=== PATIENT | female | born 1960 ===

== ENCOUNTER 2023-01-23 23:22 | Inpatient (IN) ==
[2023-01-23] MEDS ORDERED: IOPAMIDOL 100 ML BOTTLE IV ONE (23:23)
--- NOTE | 2023-01-23 23:32 | Emergency Department Note ---
Back Pain HPI General Chief Complaint: Back Pain/Injury Stated Complaint: back pain Time Seen by Provider: 01/23/23 23:32 Source: patient and EMS Mode of arrival: EMS Limitations: physical limitation History of Present Illness HPI Narrative: Narrative: 62-year-old female presents to the emergency department complaining of back pain. She states that she has had low back pain for many years. states she fell at her brother's house where she presently lives and injured her upper and lower back one week ago. states it has not been x-rayed. She rates it an 10 on a 0-to-10 scale. Constant. Nothing makes it better. Worse with palpation. Does not radiate to her lower extremities. Associated with her chronic back pain. Nurse relayed history that patient had run out of her tramadol for her back and had recently just picked up a prescription for the next 30 days worth of medication. Patient had told the nurse that providers would not renew her medicine early and she had run out. Related Data Home Medications Medication Instructions Recorded Confirmed alprazolam 0.25 mg tablet 0.25 mg PO TID PRN 12/22/22 12/22/22 insulin aspart U-100 100 unit/mL 10 unit subcut TID 12/22/22 (3 mL) subcutaneous pen insulin glargine 100 unit/mL (3 15 unit subcut QDAY 12/22/22 mL) subcutaneous pen lisinopril 40 mg tablet 40 mg PO QDAY 12/22/22 Previous Rx's Medication Instructions Recorded Oxygen 3LPM QHS #1 ea 02/02/22 lancets (OneTouch UltraSoft #100 ea 03/25/22 Lancets) CPAP mask and supplies #1 ea 04/20/22 blood sugar diagnostic (OneTouch #200 ea 05/10/22 Ultra Test strips) incontinence pad, liner, disp #120 ea 05/10/22 compression socks, large #2 ea 05/13/22 sitagliptin phosphate 25 mg tablet 25 mg PO QAM #90 tabs 05/13/22 (Januvia) pen needle, diabetic 31 gauge x #200 ea 05/24/22 3/16" (1st Tier Unifine Pentips) trazodone 50 mg tablet 50 mg PO QHS PRN insomnia #90 tabs 08/16/22 budesonide 3 mg 3 mg PO QDAY 2 weeks #14 ea 08/17/22 capsule,delayed,extended release dicyclomine 20 mg tablet 20 mg PO QID PRN stomach cramping 08/17/22 #120 tabs insulin syringe-needle U-100 1 mL #500 ea 10/12/22 27 gauge x 1/2" (BD Insulin Syringe) spironolactone 25 mg tablet 25 mg PO QDAY #90 tabs 10/12/22 albuterol sulfate 90 mcg/actuation 1 - 2 puff inhalation Q6H PRN 11/01/22 aerosol inhaler (Ventolin HFA) shortness of breath or wheezing #8.5 grams amlodipine 10 mg tablet 10 mg PO QDAY #90 tabs 12/06/22 escitalopram oxalate 10 mg tablet 10 mg PO QDAY #30 tabs 01/02/23 buspirone 5 mg tablet 5 mg PO BID #180 tabs 01/09/23 famotidine 20 mg tablet 20 mg PO BID #180 tabs 01/09/23 prednisone 20 mg tablet 40 mg PO QDAY #180 tabs 01/09/23 tramadol 50 mg tablet 100 mg PO QID PRN pain 30 days 01/20/23 #240 tabs Allergies Allergy/AdvReac Type Severity Reaction Status Date / Time glipizide AdvReac Intermediate Dizziness Verified 12/22/22 11:53 Review of Systems ROS ROS Narrative: Narrative: Constitutional: Denies fever Eyes: Denies eye pain ENT ED: Denies throat pain or rhinorrhea Cardiovascular: Denies chest pain Respiratory: Reports shortness of breath Gastrointestinal: Reports nausea; Denies vomiting Genitourinary: Denies dysuria Musculoskeletal: Reports back pain and other (No neck pain) Integumentary: Denies rash Neurological: Denies headache Psychiatric: Reports depression PFSH Narrative Patient History Narrative: Narrative: Medical/Surgical/Family History All Active Problems (Updated 01/24/23 @ 07:41 by Jason Espinoza MD) Acute low back pain due to trauma (Acute) Acute upper back pain (Acute) Acute alteration in mental status (Acute) Acute dehydration (Acute) Acute hyperkalemia (Acute) Urinary tract infection, acute (Acute) Cellulitis of right middle finger (Acute) Tachycardia (Acute) Hypoxia (Acute) Methamphetamine abuse (Acute) Aspiration pneumonia (Acute) Diabetic ulcer of chew (Acute) Hypoglycemia (Acute) Acute GI bleeding (Acute) Diarrhea (Acute) HSP ([place]) (Chronic) COPD exacerbation (Acute) Elevated blood sugar level (Acute) Depression (Acute) Hernia (Acute) Gout (Acute) Hepatitis C (Acute) Glaucoma (Acute) Arthritis (Acute) Chronic back pain (Acute) Diverticulitis (Acute) Anxiety (Acute) Type 2 diabetes mellitus (Chronic) IBS (irritable bowel syndrome) (Acute) HTN (hypertension) (Acute) COPD (chronic obstructive pulmonary disease) (Acute) Medical History Anxiety Arthritis Chronic back pain COPD (chronic obstructive pulmonary disease) COPD exacerbation Depression recent loss of son Diverticulitis Elevated blood sugar level Glaucoma Gout Hepatitis C Hernia HTN (hypertension) IBS (irritable bowel syndrome) Type 2 diabetes mellitus Surgical History History of colostomy (~2013) History of colostomy reversal (~2015) History of eye surgery (~2015) History of tubal ligation (~1992) Family History Sister Cancer High blood pressure Father Cancer Diabetes High blood pressure Mother Diabetes High blood pressure Grandfather High blood pressure Social History Smoking Status: Current every day smoker Alcohol Intake Frequency: a few times a week Substance Use: does not use Exam Narrative Narrative: Narrative: Vital signs on arrival: Blood pressure 137/91. Respiratory rate of 20. Pulse 139 which is markedly elevated. Temperature 97.4. Pulse ox was 70% on room air which is markedly low. Pulse ox came up to 91% on 3 L. General was a well- developed obese older woman lying in bed breathing through her mouth in moderate acute distress. General Limitations: physical limitation General appearance: Present appears intoxicated (Gives very brief answers which often become unintelligible by the end of the sentence.) and in distress Head Head: Present atraumatic and normocephalic Eye Eye: Present miosis (constriction) ENT ENT: Present mucous membranes dry, TM's normal bilaterally and normal external ear exam Neck Neck: Present normal inspection Respiratory Respiratory: Present normal lung sounds bilaterally; Absent respiratory distress Cardiovascular Cardiovascular: Present normal rhythm and tachycardia Adbominal Abdominal: Present soft, tenderness (Mildly tender. Multiple ventral hernia pre sent.) and hernia (Ventral) Extremities Extremities: Present other (Right long finger is swollen and erythematous. Patient states she had to cut the ring off of it.); Absent pedal edema Back Back: Present tenderness (Back was tender diffusely in the thoracic midline as well as lumbar midline as well as para midline upper back and lower back. 1 bruise was noted in the left side of the thoracolumbar junction area) Neurological Neurological: Present other (Patient is stimulated to answer question but then will start to drift off towards the end of the answer. Appears intoxicated) Psychiatric Psychiatric: Present flat affect Skin Skin: Present warm (WNL) and dry Course Vital Signs Vital signs: Vital Signs Temperature 97.4 F 01/23/23 23:23 Pulse Rate 139 H 01/23/23 23:23 Respiratory Rate 20 01/23/23 23:23 Blood Pressure 137/91 01/23/23 23:23 Pulse Oximetry (%) 70 L 01/23/23 23:23 Oxygen Delivery Method Room Air 01/23/23 23:23 Temperature 97.4 F 01/23/23 23:23 Pulse Rate 118 H 01/24/23 06:52 Respiratory Rate 20 01/23/23 23:23 Blood Pressure 131/84 01/24/23 07:16 Pulse Oximetry (%) 92 01/24/23 06:52 Oxygen Delivery Method Room Air 01/23/23 23:23 [facility] Narrative Medical decision making narrative: Narrative: 62-year-old female presents complaining of back pain with tachycardia. Differential diagnosis includes musculoskeletal pain, pyelonephritis, sepsis, dehydration, other Tachycardia in the 130s may be due to sepsis. Blood cultures were obtained lactic acid was obtained and came back normal at 2.0.Patient did not have a fever nor rapid respiratory rate nor elevated white count so only had 1 SIRS criteria. Patient appeared dehydrated on physical exam with a very dry mouth. She was bolused 1 L of normal saline. BUN came back quite elevated with a normal creatinine consistent with dehydration. Patient tachycardic in the 130s. Obed ngo had no urine output after the first liter. Patient was bolused a second liter of normal saline. Patient's potassium came back high at 5.7 with a normal creatinine.. There was minimal urine output after the second liter and the patient was bolused another liter of normal saline. Urine dip was suspicious for urinary tract infection with foul odor, positive nitrites and positive blood although the leukocytes was negative. Patient will be given ceftriaxone 1 g IV. Urine will be sent for culture. White count was normal at 10.3 with 95 neutrophils and 2 lymphs. Hemoglobin was normal at 14.8. Lactic acid was normal at 2.0. Sodium was normal at 136. Potassium was elevated at 5.7. Chloride was normal at 97. Bicarb was elevated at 33. BUN was elevated at 36 with a normal creatinine of 0.7. Glucose was elevated at 200. LFTs were unremarkable. Hyperkalemia may be secondary to dehydration. We will repeat the Chem-8 before instituting therapy to decrease the potassium. Patient was given Toradol 30 mg IV and acetaminophen 975 mg p.o. for her back pain. She rated her pain as a 9 on a 0-to-10 scale. Right long finger appears to have a cellulitis. Patient given ceftriaxone 1 g IV if for possible urinary tract infection as well as the finger. Repeat potassium after 2 L of normal saline went from 5.7 to 6.8. EKG obtained at that time did not reveal any elevated T waves though the P waves were flattened or inverted. EKG also continue to show tachycardia with a rate of 118. Hyperkalemia will be treated with calcium gluconate 4.65. She will be given 5 units of regular Humulin insulin. Her blood sugar had been 200 but is come down to 150. She is a type II diabetic. She will be given dextrose 25% because of the insulin and her glucose being 150 only. Patient continues to speak as though under the influence. CT scan of the head will evaluate for intracranial pathology. CT of the neck chest abdomen pelvis will evaluate for any spinal injuries as well as causes for abdominal tenderness. Urine tox screen will look for any other explanation for altered me ntal status. Will obtain alcohol level. Alcohol level came back at 0. 0600: Repeat POC Chem-8 showed sodium same at 136 but the potassium went from 5.7 to 6.8. Chloride normal at 101. Bicarb came down slightly from 33-31. BUN went up to 38 in spite of 2 L of normal saline while the creatinine stayed the same at 0.7 and the glucose came down to 158. Because of the unexpected rise in potassium from 5.7-6.8 in spite of 2 L of normal saline I am ordering a serum potassium to look for possible erroneous potassium value. Urine tox screen was positive for methamphetamines and for opiates. Urinalysis showed 36 white cells and 34 red cells nitrites negative. This is as opposed to the dip which was nitrite negative but no white cells. Patient is already been given ceftriaxone 1 g IV after her urine dip. CT of the head impression: Moderately limited study due to streak/motion artifac t, within this limitation, no acute intracranial abnormality is identified. CT cervical spine without contrast impression: No acute fracture or traumatic subluxation of the cervical spine. Chronic appearing compression deformity of T4. Correlation with site of pain suggested. Degenerative changes as above. CT scan of the chest abdomen pelvis: Preliminary report pending but verbal report is that the patient may have a bladder rupture. They do not see a pelvic fracture but requested a repeat of the CT scan of the pelvis to see whether there is been extravasation since she received contrast earlier., And is also made about vertebral fractures at T9, T10, T12, L3, L5, S1 but none of them hess ving retropulsion. This verbal report may vary from the preliminary report. Also comment of several rib fractures but no pneumothorax or hemothorax seen. Direct radiology requested patient have a CT scan of the pelvis without contrast since patient already had contrast to look for extravasation. I have ordered that. At this time , 0745, I have signed the patient out to my colleague Dr. Zhao who will assume care of the patient and determine management and disposition. Sepsis Sepsis Identified: No Lab Data 01/24/23 00:28 Labs: Lab Results 01/24/23 01/24/23 01/24/23 Range/Units 00:22 00:28 00:28 WBC 10.3 (4.5-11.0) K/mcL RBC 5.14 (3.59-5.38) M/mcL Hgb 14.8 (11.2-15.7) g/dL Hct 48.1 H (34.1-44.9) % POC Hct 53.0 H (36-48) MCV 93.6 (80.0-100.0) fL MCH 28.8 (26.0-34.0) pg MCHC 30.8 L (31.0-36.0) g/dL RDW 14.7 H (11.5-14.5) % Plt Count 167 (140-440) K/mcL MPV 11.6 (8.8-12.5) fL Immature Gran % (Auto) 1.1 H (0.0-0.5) % Neut % (Auto) 94.8 H (38.0-78.0) % Lymph % (Auto) 1.6 L (15.5-49.0) % [place] % (Auto) 2.1 (1.0-12.0) % Eos % (Auto) 0 (0.0-7.0) % Baso % (Auto) 0.4 (0.0-2.0) % Lymph # (Auto) 0.17 L (1.50-4.80) K/mcL [place] # (Auto) 0.22 (0.10-0.90) K/mcL Eos # (Auto) 0 (0.00-0.70) K/mcL Baso # (Auto) 0.04 (0.00-0.30) K/mcL Immature Gran # 0.11 H (0.00-0.05) K/mcl Absolute Neutrophils 9.79 H (1.80-8.00) K/mcL Differential Comment POC VBG pH (7.32-7.42) POC VBG pCO2 at Temp (41-51) POC VBG pO2 (25-40) POC VBG HCO3 (24-28) POC VBG Total CO2 (25-29) POC Venous O2 Sat (40-70) POC VBG Base Excess (-2-2) VBG Lactic Acid (0.5-2) POC Sodium 136 (133-145) POC Potassium 5.7 H (3.3-5.1) POC Chloride 97 (96-108) POC Total CO2 33.0 H (22-30) POC BUN 36 H (6-20) POC Creatinine 0.7 (0.6-1.2) POC Glucose 200 H (70-105) POC WB Ioniz Calcium 1.28 (1.16-1.32) Total Bilirubin 0.6 (0.1-1.0) mg/dL Direct Bilirubin 0.3 H (<0.3) mg/dL AST 21 (<32) U/L ALT 23 (<40) U/L Alkaline Phosphatase 148 H (39-117) U/L Total Protein 6.8 (5.9-8.4) gm/dL Albumin 2.6 L (3.2-5.2) gm/dL Globulin 4.2 H (2.2-3.7) gm/dL TSH (0.27-5.01) uIU/mL Urine Color Urine Appearance (Clear) Urine pH (5.0-9.0) Ur Specific [place] (1.000-1.035) Urine Protein (Negative) mg/dL Urine Glucose (UA) (Negative) mg/dL Urine Ketones (Negative) mg/dL Urine Occult Blood (Negative) mg/dL Urine Nitrate (Negative) Urine Bilirubin (Negative) mg/dL Urine Urobilinogen mg/dL Ur Leukocyte Esterase (Negative) /uL Urine RBC (0-3) /hpf Urine WBC (0-4) /hpf Ur Squamous Epith Cells (0-4) /hpf Urine Bacteria (0) /hpf Hyaline Casts (0-2) /lph Urine Mucus (None) /hpf Ur Culture Indicated? Urine Opiates Screen Ur Oxycodone Screen U Oxycod/Oxymor Confirm Urine Methadone Screen Ur Methadone Confirm Ur Barbiturates Screen Ur Barbiturate Confirm Ur Phencyclidine Scrn Urine PCP Confirm Ur Amphetamines Screen U Benzodiazepines Scrn Ur Benzodiazepine, Qnt Urine Cocaine Screen Urine Cocaine Confirm U Cannabinoids Confirm U Marijuana (THC) Screen Ethyl Alcohol mg/dL mg/dL Ethyl Alcohol g/dL (<0.010) gm/dL 01/24/23 01/24/23 01/24/23 Range/Units 00:28 00:39 05:28 WBC (4.5-11.0) K/mcL RBC (3.59-5.38) M/mcL Hgb (11.2-15.7) g/dL Hct (34.1-44.9) % POC Hct (36-48) MCV (80.0-100.0) fL MCH (26.0-34.0) pg MCHC (31.0-36.0) g/dL RDW (11.5-14.5) % Plt Count (140-440) K/mcL MPV (8.8-12.5) fL Immature Gran % (Auto) (0.0-0.5) % Neut % (Auto) (38.0-78.0) % Lymph % (Auto) (15.5-49.0) % [place] % (Auto) (1.0-12.0) % Eos % (Auto) (0.0-7.0) % Baso % (Auto) (0.0-2.0) % Lymph # (Auto) (1.50-4.80) K/mcL [place] # (Auto) (0.10-0.90) K/mcL Eos # (Auto) (0.00-0.70) K/mcL Baso # (Auto) (0.00-0.30) K/mcL Immature Gran # (0.00-0.05) K/mcl Absolute Neutrophils (1.80-8.00) K/mcL Differential Comment POC VBG pH 7.42 (7.32-7.42) POC VBG pCO2 at Temp 46.2 (41-51) POC VBG pO2 56 H (25-40) POC VBG HCO3 29.8 H (24-28) POC VBG Total CO2 31.0 H (25-29) POC Venous O2 Sat 89.0 H (40-70) POC VBG Base Excess 5.0 H* (-2-2) VBG Lactic Acid 2.0 (0.5-2) POC Sodium (133-145) POC Potassium (3.3-5.1) POC Chloride (96-108) POC Total CO2 (22-30) POC BUN (6-20) POC Creatinine (0.6-1.2) POC Glucose (70-105) POC WB Ioniz Calcium (1.16-1.32) Total Bilirubin (0.1-1.0) mg/dL Direct Bilirubin (<0.3) mg/dL AST (<32) U/L ALT (<40) U/L Alkaline Phosphatase (39-117) U/L Total Protein (5.9-8.4) gm/dL Albumin (3.2-5.2) gm/dL Globulin (2.2-3.7) gm/dL TSH (0.27-5.01) uIU/mL Urine Color [place] Urine Appearance Cloudy A (Clear) Urine pH 5.0 (5.0-9.0) Ur Specific [place] 1.028 (1.000-1.035) Urine Protein 100 A (Negative) mg/dL Urine Glucose (UA) 50 A (Negative) mg/dL Urine Ketones 20 A (Negative) mg/dL Urine Occult Blood 0.20 (Negative) mg/dL Urine Nitrate Negative (Negative) Urine Bilirubin Negative (Negative) mg/dL Urine Urobilinogen 2.0 A mg/dL Ur Leukocyte Esterase 25 A (Negative) /uL Urine RBC 34 H (0-3) /hpf Urine WBC 36 H (0-4) /hpf Ur Squamous Epith Cells 5 H (0-4) /hpf Urine Bacteria Many A (0) /hpf Hyaline Casts 57 H (0-2) /lph Urine Mucus Many A (None) /hpf Ur Culture Indicated? No Urine Opiates Screen Ur Oxycodone Screen U Oxycod/Oxymor Confirm Urine Methadone Screen Ur Methadone Confirm Ur Barbiturates Screen Ur Barbiturate Confirm Ur Phencyclidine Scrn Urine PCP Confirm Ur Amphetamines Screen U Benzodiazepines Scrn Ur Benzodiazepine, Qnt Urine Cocaine Screen Urine Cocaine Confirm U Cannabinoids Confirm U Marijuana (THC) Screen Ethyl Alcohol mg/dL < 10.0 mg/dL Ethyl Alcohol g/dL < 0.010 (<0.010) gm/dL 01/24/23 01/24/23 01/24/23 Range/Units 05:45 05:47 06:04 WBC (4.5-11.0) K/mcL RBC (3.59-5.38) M/mcL Hgb (11.2-15.7) g/dL Hct (34.1-44.9) % POC Hct 49.0 H (36-48) MCV (80.0-100.0) fL MCH (26.0-34.0) pg MCHC (31.0-36.0) g/dL RDW (11.5-14.5) % Plt Count (140-440) K/mcL MPV (8.8-12.5) fL Immature Gran % (Auto) (0.0-0.5) % Neut % (Auto) (38.0-78.0) % Lymph % (Auto) (15.5-49.0) % [place] % (Auto) (1.0-12.0) % Eos % (Auto) (0.0-7.0) % Baso % (Auto) (0.0-2.0) % Lymph # (Auto) (1.50-4.80) K/mcL [place] # (Auto) (0.10-0.90) K/mcL Eos # (Auto) (0.00-0.70) K/mcL Baso # (Auto) (0.00-0.30) K/mcL Immature Gran # (0.00-0.05) K/mcl Absolute Neutrophils (1.80-8.00) K/mcL Differential Comment POC VBG pH (7.32-7.42) POC VBG pCO2 at Temp (41-51) POC VBG pO2 (25-40) POC VBG HCO3 (24-28) POC VBG Total CO2 (25-29) POC Venous O2 Sat (40-70) POC VBG Base Excess (-2-2) VBG Lactic Acid (0.5-2) POC Sodium 136 (133-145) POC Potassium 6.8 H* (3.3-5.1) POC Chloride 101 (96-108) POC Total CO2 31.0 H (22-30) POC BUN 38 H (6-20) POC Creatinine 0.7 (0.6-1.2) POC Glucose 158 H (70-105) POC WB Ioniz Calcium 1.17 (1.16-1.32) Total Bilirubin (0.1-1.0) mg/dL Direct Bilirubin (<0.3) mg/dL AST (<32) U/L ALT (<40) U/L Alkaline Phosphatase (39-117) U/L Total Protein (5.9-8.4) gm/dL Albumin (3.2-5.2) gm/dL Globulin (2.2-3.7) gm/dL TSH 0.36 (0.27-5.01) uIU/mL Urine Color Urine Appearance (Clear) Urine pH (5.0-9.0) Ur Specific [place] (1.000-1.035) Urine Protein (Negative) mg/dL Urine Glucose (UA) (Negative) mg/dL Urine Ketones (Negative) mg/dL Urine Occult Blood (Negative) mg/dL Urine Nitrate (Negative) Urine Bilirubin (Negative) mg/dL Urine Urobilinogen mg/dL Ur Leukocyte Esterase (Negative) /uL Urine RBC (0-3) /hpf Urine WBC (0-4) /hpf Ur Squamous Epith Cells (0-4) /hpf Urine Bacteria (0) /hpf Hyaline Casts (0-2) /lph Urine Mucus (None) /hpf Ur Culture Indicated? Urine Opiates Screen Suspect positive A Ur Oxycodone Screen None detected U Oxycod/Oxymor Confirm TNP Urine Methadone Screen None detected Ur Methadone Confirm TNP Ur Barbiturates Screen None detected Ur Barbiturate Confirm TNP Ur Phencyclidine Scrn None detected Urine PCP Confirm TNP Ur Amphetamines Screen Suspect positive A U Benzodiazepines Scrn None detected Ur Benzodiazepine, Qnt TNP Urine Cocaine Screen None detected Urine Cocaine Confirm TNP U Cannabinoids Confirm TNP U Marijuana (THC) Screen None detected Ethyl Alcohol mg/dL mg/dL Ethyl Alcohol g/dL (<0.010) gm/dL EKG Data EKG #1: EKG attestation: Yes I reviewed and interpreted this EKG. Rate: tachycardia Rhythm: NSR Voltage: decreased voltage throughout ST segment elevation in: None ST segment depression in: None Hyperacute T waves: None Interpretation: other (Abnormal EKG. Sinus tachycardia. Low voltage. No hyperacute T waves.) CC TIME Critical Care Time Critical Care Time: Yes Total Critical Care Time: 35 Attestation: Total critical care time exceeded 35 minutes exclusive of all procedures. Patient was critical care in view of her significant tachycardia along with hypoxia of unclear etiology with a chief complaint of back pain. I considered sepsis as well as back injury as well as intra-abdominal injuries. Patient also had altered mental status of unclear etiology. Discharge Plan Patient/Caregiver Discharge Instructions Pt seen by INTERLOCKING AND SIGNAL MECHANIC/PA only: No Clinical Impression: Acute low back pain due to trauma, Acute upper back pain, Acute alteration in mental status, Acute dehydration, Acute hyperkalemia, Urinary tract infection, acute, Cellulitis of right middle finger, Tachycardia, Hypoxia, Methamphetamine abuse Patient Disposition: Still a Patient Condition: Serious Follow up with: Thierno Leonard DO [Primary Care Provider] - Prescriptions: No Action (DME) Oxygen 3LPM QHS See Rx Instructions .Route .MEDSUPPLY Qty: 1 0RF Rx Instructions: As directed (DME) lancets [OneTouch UltraSoft Lancets] Misc See Rx Instructions .Route Qty: 100 3RF Rx Instructions: As directed to test blood sugars three times daily (DME) CPAP mask and supplies See Rx Instructions .Route .MEDSUPPLY Qty: 1 0RF Rx Instructions: As directed (DME) compression socks, large Misc See Rx Instructions .Route Qty: 2 0RF Rx Instructions: As directed daily Januvia 25 mg tablet 25 mg PO QAM Qty: 90 3RF (DME) pen needle, diabetic [1st Tier Unifine Pentips] 31 gauge x 3/16" needle See Rx Instructions .Route Qty: 200 3RF Rx Instructions: Use to administer insulin twice daily trazodone 50 mg tablet 50 mg PO QHS PRN (Reason: insomnia) Qty: 90 1RF spironolactone 25 mg tablet 25 mg PO QDAY Qty: 90 1RF (DME) insulin syringe-needle U-100 [BD Insulin Syringe] 1 mL 27 gauge x 1/2" syringe See Rx Instructions .Route Qty: 500 3RF Rx Instructions: Use to administer insulin twice daily albuterol sulfate [Ventolin HFA] 90 mcg/actuation HFA aerosol inhaler 1 - 2 puff inhalation Q6H PRN (Reason: shortness of breath or wheezing) Qty: 8.5 3RF amlodipine 10 mg tablet 10 mg PO QDAY Qty: 90 0RF escitalopram oxalate 10 mg tablet 10 mg PO QDAY Qty: 30 1RF famotidine 20 mg tablet 20 mg PO BID Qty: 180 0RF buspirone 5 mg tablet 5 mg PO BID Qty: 180 0RF prednisone 20 mg tablet 40 mg PO QDAY Qty: 180 0RF tramadol 50 mg tablet 100 mg PO QID PRN (Reason: pain) 30 Days Qty: 240 0RF Rx Instructions: MAY NOT FILL UNTIL 01/21/23 dicyclomine 20 mg tablet 20 mg PO QID PRN (Reason: stomach cramping) Qty: 120 5RF budesonide 3 mg capsule,delayed,extend.release 3 mg PO QDAY 14 Days Qty: 14 0RF insulin aspart U-100 100 unit/mL (3 mL) insulin pen 10 unit subcut TID Rx Instructions: plus sliding scale adjustment due to steroid use MAXIUMUM DOSE 42U DAILY alprazolam 0.25 mg tablet 0.25 mg PO TID PRN insulin glargine 100 unit/mL (3 mL) insulin pen 15 unit subcut QDAY lisinopril 40 mg tablet 40 mg PO QDAY (DME) OneTouch Ultra Test Strip See Rx Instructions .Route Qty: 200 3RF Rx Instructions: Use to test blood sugar three times daily (DME) incontinence pad, liner, disp Pad See Rx Instructions .Route Qty: 120 0RF Rx Instructions: As directed daily
[2023-01-24 00:27] LABS: POC Calcium, Ionized 1.28 (1.16-1.32); POC Creatinine 0.7 (0.6-1.2); POC Potassium 5.7 (3.3-5.1)
[2023-01-24 01:14] LABS: Basophils # (Auto) 0.04 K/mcL (0.00-0.30); Basophils % (Auto) 0.4 % (0.0-2.0); Eosinophils # (Auto) 0 K/mcL (0.00-0.70); Eosinophils % (Auto) 0 % (0.0-7.0); Hematocrit 48.1 % (34.1-44.9); Hemoglobin 14.8 g/dL (11.2-15.7); Lymphocytes # (Auto) 0.17 K/mcL (1.50-4.80); Lymphocytes % (Auto) 1.6 % (15.5-49.0); Mean Cell Volume 93.6 fL (80.0-100.0); Mean Corpuscular HGB Conc 30.8 g/dL (31.0-36.0); Mean Platelet Volume 11.6 fL (8.8-12.5); Monocytes # (Auto) 0.22 K/mcL (0.10-0.90); Monocytes % (Auto) 2.1 % (1.0-12.0); Neutrophils % (Auto) 94.8 % (38.0-78.0); Platelet Count 167 K/mcL (140-440); RBC 5.14 M/mcL (3.59-5.38); Red Cell Distribution Width 14.7 % (11.5-14.5); WBC 10.3 K/mcL (4.5-11.0)
[2023-01-24] MEDS ORDERED: 0.9 % SODIUM CHLORIDE 1,000 ML IV ONE ×3 (01:21→05:19)
[2023-01-24] MEDS ORDERED: ACETAMINOPHEN 325 MG TABLET PO ONE (01:21)
[2023-01-24] MEDS ORDERED: KETOROLAC 30 MG/ML VIAL IV ONE (01:21)
[2023-01-24 01:29] LABS: ALT/SGPT 23 U/L (<40); AST/SGOT 21 U/L (<32); Albumin 2.6 gm/dL (3.2-5.2); Alkaline Phosphatase 148 U/L (39-117); Bilirubin,Direct 0.3 mg/dL (<0.3); Bilirubin,Total 0.6 mg/dL (0.1-1.0); Globulin 4.2 gm/dL (2.2-3.7)
[2023-01-24] MEDS ORDERED: cefTRIAXone 1 GM VIAL IV ONE ×2 (05:19→22:00)
[2023-01-24 05:56] LABS: POC Calcium, Ionized 1.17 (1.16-1.32); POC Creatinine 0.7 (0.6-1.2); POC Potassium 6.8 (3.3-5.1)
[2023-01-24] MEDS ORDERED: INSULIN REGULAR, HUMAN 1 UNIT/0.01 ML UNIT IV ONE (05:56)
[2023-01-24] MEDS ORDERED: SODIUM POLYSTYRENE SULFONATE 15 GM/60 ML SUSPENSION PO ONE (05:56)
[2023-01-24] MEDS ORDERED: CALCIUM GLUCONATE 4.65 MEQ in DEXTROSE 5% IN WATER 50 ML IV ONE (05:56)
[2023-01-24] MEDS ORDERED: DEXTROSE 25 % 10ML SYRINGE (PEDIATRIC) IV ONE (06:14)
[2023-01-24 06:38] LABS: Alcohol, Blood < 10.0 mg/dL; Alcohol,Blood < 0.010 gm/dL (<0.010)
[2023-01-24] MEDS ORDERED: DEXTROSE 50% 50 ML SYRINGE IV ONE (06:57)
[2023-01-24 07:17] LABS: Appearance,Urine CLOUDY (Clear); Bacteria,Urine MANY /hpf (0); Bilirubin,Urine Negative (Negative); Color,Urine AMBER; Culture Indicated,Urine No; Glucose,Urine (UA) 50 mg/dL (Negative); Ketones,Urine 20 mg/dL (Negative); Leukocyte Esterase,Urine 25 /uL (Negative); Mucus,Urine MANY /hpf; Nitrate,Urine Negative (Negative); Protein,Urine 100 mg/dL (Negative); Specific Gravity,Urine 1.028 (1.000-1.035); Urine Hyaline Cast 57 /lph (0-2); Urine RBC 34 /hpf (0-3); Urine Squamous Epithelial Cell 5 /hpf (0-4); Urine WBC 36 /hpf (0-4)
[2023-01-24 07:22] LABS: Amphetamine Screen,Urine Suspect positive; Barbiturate Screen,Urine None detected; Benzodiazepines Screen,Urine None detected; Cannabinoid Screen,Urine None detected; Cocaine Screen,Urine None detected; Opiate Screen,Urine Suspect Positive; Oxycodone, Urine Screen None detected; Phencyclidine Screen,Urine None detected
[2023-01-24 07:26] LABS: Thyroid Stimulating Hormone 0.36 uIU/mL (0.27-5.01)
[2023-01-24 08:29] LABS: Blood Urea Nitrogen 24 mg/dL (8-23); Calcium 9.3 mg/dL (8.6-10.4); Carbon Dioxide 27 mmol/L (22-30); Chloride 102 mmol/L (96-108); Glomerular Filtration Rate 104; Glucose 121 mg/dL (70-105)
--- NOTE | 2023-01-24 09:35 | Cat Scan Report ---
CLINICAL INFORMATION: Decreased consciousness COMPARISON: 10/15/2022 TECHNIQUE: 2.5 mm helical slices were obtained in the skull base to vertex. Following reconstruction, axial reformatted images were reviewed at bone and parenchymal windows. The exam was performed using radiation dose optimization techniques including, but not limited to, automated exposure control, adjustment of the mA and/or kV according to patient size and use of iterative reconstruction technique. FINDINGS: The ventricles, sulci, fissures, and cisterns are normal in size and configuration for age. No extra-axial fluid collections are identified. The cerebrum, brainstem and cerebellum are unremarkable. There is no evidence of hemorrhage, mass effect, or edema. Bone windows show no osseous abnormality. IMPRESSION: Normal head CT without contrast. Interpreted and Authenticated by: Thierno Herron 01/24/23
--- NOTE | 2023-01-24 09:42 | Cat Scan Report ---
CLINICAL INFORMATION: Trauma COMPARISON: None. TECHNIQUE: 0.625 mm helical slices were obtained from the skull base through the superior T2 end plate. Following reconstruction, 2.5 mm sagittal, coronal and axial reformations , with and without disc space angling, were processed. The exam was reviewed at bone and soft tissue windows. The exam was performed using radiation dose optimization techniques including, but not limited to, automated exposure control, adjustment of the mA and/or kV according to patient size and use of iterative reconstruction technique. FINDINGS: Sagittal and coronal reformatted images show the cervical spine is anatomically aligned. 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 There is no fracture identified. The cervical cord is normal in contour and caliber without focal lesion. The soft tissues are normal. Centrilobular emphysema again noted. The C1-2 and C2-3 levels are normal. At C3-4, mild broad disc protrusion and facet arthropathy result in mild central canal and left IV foraminal narrowing. At C4-5, mild broad disc protrusion and moderate facet arthropathy result in mild right IV foraminal and mild central canal narrowing. At C5-6, moderate broad disc spur complex results in moderate central canal, severe left lateral recess/IV foraminal and moderate right IV foraminal narrowing. There is exiting C6 nerve root impingement. No change At C6-7, large broad disc spur complex results in severe central canal and left IV foraminal narrowing. There is impingement of the exiting left C7 nerve root The C7-T1 disc level is normal. IMPRESSION: 1. No fracture or post traumatic change. 2. Multilevel degeneration. 3. Centrilobular emphysema Interpreted and Authenticated by: Thierno Herron 01/24/23
[2023-01-24] MEDS ORDERED: PIPERACILLIN SODIUM/TAZOBACTAM 3.375 GM in DEXTROSE 5% IN WATER 50 ML IV ONE (10:06)
--- NOTE | 2023-01-24 11:33 | Emergency Department Note ---
Course Course Course Narrative: Assumed care of patient at 0700. Took report evaluated patient checked labs discussed CTs with Dr. Herron. All CTs are negative for acute fxs or intracranial bleed, with the exception of the pelvic CT which showed air both in the bladder wall as well as possibly extravasating. Dr. 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 Her urinalysis is positive for leukocytosis as well as nitrites and many bacteria. Her tox screens positive for amphetamines and opiates. Patient's CT scans showed multiple fractures and tox screens are positive for both opiates and amphetamine. In addition her blood culture showed gram-positive cocci. Patient was treated with ceftriaxone x1 here. 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 Discussed the case with the hospitalist who will see her.. Patient is on chronic opioids and she seems to be on the edge of withdrawal. We will treat her for this with small dose of methadone. Vital Signs Vital signs: Vital Signs Temperature 97.4 F 01/23/23 23:23 Pulse Rate 139 H 01/23/23 23:23 Respiratory Rate 20 01/23/23 23:23 Blood Pressure 137/91 01/23/23 23:23 Pulse Oximetry (%) 70 L 01/23/23 23:23 Oxygen Delivery Method Room Air 01/23/23 23:23 Temperature 97.4 F 01/23/23 23:23 Pulse Rate 122 H 01/24/23 14:46 Respiratory Rate 25 H 01/24/23 16:02 Blood Pressure 131/87 01/24/23 16:02 Pulse Oximetry (%) 95 01/24/23 14:46 Oxygen Delivery Method Nasal Cannula 01/24/23 15:34 Oxygen Flow Rate (L/min) 5 01/24/23 15:34 MDM MDM Narrative Medical decision making narrative: Narrative: Lab Data 01/24/23 00:28 01/24/23 07:36 Labs: Lab Results 01/24/23 01/24/23 01/24/23 Range/Units 00:22 00:28 00:28 WBC 10.3 (4.5-11.0) K/mcL RBC 5.14 (3.59-5.38) M/mcL Hgb 14.8 (11.2-15.7) g/dL Hct 48.1 H (34.1-44.9) % POC Hct 53.0 H (36-48) MCV 93.6 (80.0-100.0) fL MCH 28.8 (26.0-34.0) pg MCHC 30.8 L (31.0-36.0) g/dL RDW 14.7 H (11.5-14.5) % Plt Count 167 (140-440) K/mcL MPV 11.6 (8.8-12.5) fL Immature Gran % (Auto) 1.1 H (0.0-0.5) % Neut % (Auto) 94.8 H (38.0-78.0) % Lymph % (Auto) 1.6 L (15.5-49.0) % Drew % (Auto) 2.1 (1.0-12.0) % Eos % (Auto) 0 (0.0-7.0) % Baso % (Auto) 0.4 (0.0-2.0) % Lymph # (Auto) 0.17 L (1.50-4.80) K/mcL Drew # (Auto) 0.22 (0.10-0.90) K/mcL Eos # (Auto) 0 (0.00-0.70) K/mcL Baso # (Auto) 0.04 (0.00-0.30) K/mcL Seg Neutrophils % (38-78) % Band Neutrophils % (0-10) % Lymphocytes % (15-49) % Monocytes % (Manual) (1-12) % Immature Gran # 0.11 H (0.00-0.05) K/mcl Absolute Neutrophils 9.79 H (1.80-8.00) K/mcL Differential Comment Platelet Estimate (Normal) RBC Morphology (Normal) Hypochromasia (None Seen) POC VBG pH (7.32-7.42) POC VBG pCO2 at Temp (41-51) POC VBG pO2 (25-40) POC VBG HCO3 (24-28) POC VBG Total CO2 (25-29) POC Venous O2 Sat (40-70) POC VBG Base Excess (-2-2) VBG Lactic Acid (0.5-2) POC Sodium 136 (133-145) Sodium (133-145) mmol/L POC Potassium 5.7 H (3.3-5.1) Potassium (3.3-5.1) mmol/L POC Chloride 97 (96-108) Chloride (96-108) mmol/L Carbon Dioxide (22-30) mmol/L POC Total CO2 33.0 H (22-30) Anion Gap (8.0-16.0) POC BUN 36 H (6-20) BUN (8-23) mg/dL Creatinine (0.6-1.1) mg/dL POC Creatinine 0.7 (0.6-1.2) GFR Calculation Glucose (70-105) mg/dL POC Glucose 200 H (70-105) Calcium (8.6-10.4) mg/dL POC WB Ioniz Calcium 1.28 (1.16-1.32) Total Bilirubin 0.6 (0.1-1.0) mg/dL Direct Bilirubin 0.3 H (<0.3) mg/dL AST 21 (<32) U/L ALT 23 (<40) U/L Alkaline Phosphatase 148 H (39-117) U/L Total Protein 6.8 (5.9-8.4) gm/dL Albumin 2.6 L (3.2-5.2) gm/dL Globulin 4.2 H (2.2-3.7) gm/dL Procalcitonin (<0.10) ng/mL TSH (0.27-5.01) uIU/mL Urine Color Urine Appearance (Clear) Urine pH (5.0-9.0) Ur Specific [place] (1.000-1.035) Urine Protein (Negative) mg/dL Urine Glucose (UA) (Negative) mg/dL Urine Ketones (Negative) mg/dL Urine Occult Blood (Negative) mg/dL Urine Nitrate (Negative) Urine Bilirubin (Negative) mg/dL Urine Urobilinogen mg/dL Ur Leukocyte Esterase (Negative) /uL Urine RBC (0-3) /hpf Urine WBC (0-4) /hpf Ur Squamous Epith Cells (0-4) /hpf Urine Bacteria (0) /hpf Hyaline Casts (0-2) /lph Urine Mucus (None) /hpf Ur Culture Indicated? Urine Opiates Screen Ur Oxycodone Screen U Oxycod/Oxymor Confirm Urine Methadone Screen Ur Methadone Confirm Ur Barbiturates Screen Ur Barbiturate Confirm Ur Phencyclidine Scrn Urine PCP Confirm Ur Amphetamines Screen U Benzodiazepines Scrn Ur Benzodiazepine, Qnt Urine Cocaine Screen Urine Cocaine Confirm U Cannabinoids Confirm U Marijuana (THC) Screen Ethyl Alcohol mg/dL mg/dL Ethyl Alcohol g/dL (<0.010) gm/dL 01/24/23 01/24/23 01/24/23 Range/Units 00:28 00:39 05:28 WBC (4.5-11.0) K/mcL RBC (3.59-5.38) M/mcL Hgb (11.2-15.7) g/dL Hct (34.1-44.9) % POC Hct (36-48) MCV (80.0-100.0) fL MCH (26.0-34.0) pg MCHC (31.0-36.0) g/dL RDW (11.5-14.5) % Plt Count (140-440) K/mcL MPV (8.8-12.5) fL Immature Gran % (Auto) (0.0-0.5) % Neut % (Auto) (38.0-78.0) % Lymph % (Auto) (15.5-49.0) % Drew % (Auto) (1.0-12.0) % Eos % (Auto) (0.0-7.0) % Baso % (Auto) (0.0-2.0) % Lymph # (Auto) (1.50-4.80) K/mcL Drew # (Auto) (0.10-0.90) K/mcL Eos # (Auto) (0.00-0.70) K/mcL Baso # (Auto) (0.00-0.30) K/mcL Seg Neutrophils % (38-78) % Band Neutrophils % (0-10) % Lymphocytes % (15-49) % Monocytes % (Manual) (1-12) % Immature Gran # (0.00-0.05) K/mcl Absolute Neutrophils (1.80-8.00) K/mcL Differential Comment Platelet Estimate (Normal) RBC Morphology (Normal) Hypochromasia (None Seen) POC VBG pH 7.42 (7.32-7.42) POC VBG pCO2 at Temp 46.2 (41-51) POC VBG pO2 56 H (25-40) POC VBG HCO3 29.8 H (24-28) POC VBG Total CO2 31.0 H (25-29) POC Venous O2 Sat 89.0 H (40-70) POC VBG Base Excess 5.0 H* (-2-2) VBG Lactic Acid 2.0 (0.5-2) POC Sodium (133-145) Sodium (133-145) mmol/L POC Potassium (3.3-5.1) Potassium (3.3-5.1) mmol/L POC Chloride (96-108) Chloride (96-108) mmol/L Carbon Dioxide (22-30) mmol/L POC Total CO2 (22-30) Anion Gap (8.0-16.0) POC BUN (6-20) BUN (8-23) mg/dL Creatinine (0.6-1.1) mg/dL POC Creatinine (0.6-1.2) GFR Calculation Glucose (70-105) mg/dL POC Glucose (70-105) Calcium (8.6-10.4) mg/dL POC WB Ioniz Calcium (1.16-1.32) Total Bilirubin (0.1-1.0) mg/dL Direct Bilirubin (<0.3) mg/dL AST (<32) U/L ALT (<40) U/L Alkaline Phosphatase (39-117) U/L Total Protein (5.9-8.4) gm/dL Albumin (3.2-5.2) gm/dL Globulin (2.2-3.7) gm/dL Procalcitonin (<0.10) ng/mL TSH (0.27-5.01) uIU/mL Urine Color [place] Urine Appearance Cloudy A (Clear) Urine pH 5.0 (5.0-9.0) Ur Specific [place] 1.028 (1.000-1.035) Urine Protein 100 A (Negative) mg/dL Urine Glucose (UA) 50 A (Negative) mg/dL Urine Ketones 20 A (Negative) mg/dL Urine Occult Blood 0.20 (Negative) mg/dL Urine Nitrate Negative (Negative) Urine Bilirubin Negative (Negative) mg/dL Urine Urobilinogen 2.0 A mg/dL Ur Leukocyte Esterase 25 A (Negative) /uL Urine RBC 34 H (0-3) /hpf Urine WBC 36 H (0-4) /hpf Ur Squamous Epith Cells 5 H (0-4) /hpf Urine Bacteria Many A (0) /hpf Hyaline Casts 57 H (0-2) /lph Urine Mucus Many A (None) /hpf Ur Culture Indicated? No Urine Opiates Screen Ur Oxycodone Screen U Oxycod/Oxymor Confirm Urine Methadone Screen Ur Methadone Confirm Ur Barbiturates Screen Ur Barbiturate Confirm Ur Phencyclidine Scrn Urine PCP Confirm Ur Amphetamines Screen U Benzodiazepines Scrn Ur Benzodiazepine, Qnt Urine Cocaine Screen Urine Cocaine Confirm U Cannabinoids Confirm U Marijuana (THC) Screen Ethyl Alcohol mg/dL < 10.0 mg/dL Ethyl Alcohol g/dL < 0.010 (<0.010) gm/dL 01/24/23 01/24/23 01/24/23 Range/Units 05:45 05:47 06:04 WBC (4.5-11.0) K/mcL RBC (3.59-5.38) M/mcL Hgb (11.2-15.7) g/dL Hct (34.1-44.9) % POC Hct 49.0 H (36-48) MCV (80.0-100.0) fL MCH (26.0-34.0) pg MCHC (31.0-36.0) g/dL RDW (11.5-14.5) % Plt Count (140-440) K/mcL MPV (8.8-12.5) fL Immature Gran % (Auto) (0.0-0.5) % Neut % (Auto) (38.0-78.0) % Lymph % (Auto) (15.5-49.0) % Drew % (Auto) (1.0-12.0) % Eos % (Auto) (0.0-7.0) % Baso % (Auto) (0.0-2.0) % Lymph # (Auto) (1.50-4.80) K/mcL Drew # (Auto) (0.10-0.90) K/mcL Eos # (Auto) (0.00-0.70) K/mcL Baso # (Auto) (0.00-0.30) K/mcL Seg Neutrophils % (38-78) % Band Neutrophils % (0-10) % Lymphocytes % (15-49) % Monocytes % (Manual) (1-12) % Immature Gran # (0.00-0.05) K/mcl Absolute Neutrophils (1.80-8.00) K/mcL Differential Comment Platelet Estimate (Normal) RBC Morphology (Normal) Hypochromasia (None Seen) POC VBG pH (7.32-7.42) POC VBG pCO2 at Temp (41-51) POC VBG pO2 (25-40) POC VBG HCO3 (24-28) POC VBG Total CO2 (25-29) POC Venous O2 Sat (40-70) POC VBG Base Excess (-2-2) VBG Lactic Acid (0.5-2) POC Sodium 136 (133-145) Sodium (133-145) mmol/L POC Potassium 6.8 H* (3.3-5.1) Potassium (3.3-5.1) mmol/L POC Chloride 101 (96-108) Chloride (96-108) mmol/L Carbon Dioxide (22-30) mmol/L POC Total CO2 31.0 H (22-30) Anion Gap (8.0-16.0) POC BUN 38 H (6-20) BUN (8-23) mg/dL Creatinine (0.6-1.1) mg/dL POC Creatinine 0.7 (0.6-1.2) GFR Calculation Glucose (70-105) mg/dL POC Glucose 158 H (70-105) Calcium (8.6-10.4) mg/dL POC WB Ioniz Calcium 1.17 (1.16-1.32) Total Bilirubin (0.1-1.0) mg/dL Direct Bilirubin (<0.3) mg/dL AST (<32) U/L ALT (<40) U/L Alkaline Phosphatase (39-117) U/L Total Protein (5.9-8.4) gm/dL Albumin (3.2-5.2) gm/dL Globulin (2.2-3.7) gm/dL Procalcitonin (<0.10) ng/mL TSH 0.36 (0.27-5.01) uIU/mL Urine Color Urine Appearance (Clear) Urine pH (5.0-9.0) Ur Specific [place] (1.000-1.035) Urine Protein (Negative) mg/dL Urine Glucose (UA) (Negative) mg/dL Urine Ketones (Negative) mg/dL Urine Occult Blood (Negative) mg/dL Urine Nitrate (Negative) Urine Bilirubin (Negative) mg/dL Urine Urobilinogen mg/dL Ur Leukocyte Esterase (Negative) /uL Urine RBC (0-3) /hpf Urine WBC (0-4) /hpf Ur Squamous Epith Cells (0-4) /hpf Urine Bacteria (0) /hpf Hyaline Casts (0-2) /lph Urine Mucus (None) /hpf Ur Culture Indicated? Urine Opiates Screen Suspect positive A Ur Oxycodone Screen None detected U Oxycod/Oxymor Confirm TNP Urine Methadone Screen None detected Ur Methadone Confirm TNP Ur Barbiturates Screen None detected Ur Barbiturate Confirm TNP Ur Phencyclidine Scrn None detected Urine PCP Confirm TNP Ur Amphetamines Screen Suspect positive A U Benzodiazepines Scrn None detected Ur Benzodiazepine, Qnt TNP Urine Cocaine Screen None detected Urine Cocaine Confirm TNP U Cannabinoids Confirm TNP U Marijuana (THC) Screen None detected Ethyl Alcohol mg/dL mg/dL Ethyl Alcohol g/dL (<0.010) gm/dL 01/24/23 01/24/23 01/24/23 Range/Units 07:36 10:00 10:00 WBC (4.5-11.0) K/mcL RBC (3.59-5.38) M/mcL Hgb (11.2-15.7) g/dL Hct (34.1-44.9) % POC Hct (36-48) MCV (80.0-100.0) fL MCH (26.0-34.0) pg MCHC (31.0-36.0) g/dL RDW (11.5-14.5) % Plt Count (140-440) K/mcL MPV (8.8-12.5) fL Immature Gran % (Auto) (0.0-0.5) % Neut % (Auto) (38.0-78.0) % Lymph % (Auto) (15.5-49.0) % Drew % (Auto) (1.0-12.0) % Eos % (Auto) (0.0-7.0) % Baso % (Auto) (0.0-2.0) % Lymph # (Auto) (1.50-4.80) K/mcL Drew # (Auto) (0.10-0.90) K/mcL Eos # (Auto) (0.00-0.70) K/mcL Baso # (Auto) (0.00-0.30) K/mcL Seg Neutrophils % 77 (38-78) % Band Neutrophils % 17 H (0-10) % Lymphocytes % 5 L (15-49) % Monocytes % (Manual) 1 (1-12) % Immature Gran # (0.00-0.05) K/mcl Absolute Neutrophils (1.80-8.00) K/mcL Differential Comment Platelet Estimate Normal (Normal) RBC Morphology Abnormal A (Normal) Hypochromasia 1+ A (None Seen) POC VBG pH (7.32-7.42) POC VBG pCO2 at Temp (41-51) POC VBG pO2 (25-40) POC VBG HCO3 (24-28) POC VBG Total CO2 (25-29) POC Venous O2 Sat (40-70) POC VBG Base Excess (-2-2) VBG Lactic Acid (0.5-2) POC Sodium (133-145) Sodium 139 (133-145) mmol/L POC Potassium (3.3-5.1) Potassium 3.4 (3.3-5.1) mmol/L POC Chloride (96-108) Chloride 102 (96-108) mmol/L Carbon Dioxide 27 (22-30) mmol/L POC Total CO2 (22-30) Anion Gap 10.0 (8.0-16.0) POC BUN (6-20) BUN 24 H (8-23) mg/dL Creatinine 0.5 L (0.6-1.1) mg/dL POC Creatinine (0.6-1.2) GFR Calculation 104 Glucose 121 H (70-105) mg/dL POC Glucose (70-105) Calcium 9.3 (8.6-10.4) mg/dL POC WB Ioniz Calcium (1.16-1.32) Total Bilirubin (0.1-1.0) mg/dL Direct Bilirubin (<0.3) mg/dL AST (<32) U/L ALT (<40) U/L Alkaline Phosphatase (39-117) U/L Total Protein (5.9-8.4) gm/dL Albumin (3.2-5.2) gm/dL Globulin (2.2-3.7) gm/dL Procalcitonin 1.22 H (<0.10) ng/mL TSH (0.27-5.01) uIU/mL Urine Color Urine Appearance (Clear) Urine pH (5.0-9.0) Ur Specific [place] (1.000-1.035) Urine Protein (Negative) mg/dL Urine Glucose (UA) (Negative) mg/dL Urine Ketones (Negative) mg/dL Urine Occult Blood (Negative) mg/dL Urine Nitrate (Negative) Urine Bilirubin (Negative) mg/dL Urine Urobilinogen mg/dL Ur Leukocyte Esterase (Negative) /uL Urine RBC (0-3) /hpf Urine WBC (0-4) /hpf Ur Squamous Epith Cells (0-4) /hpf Urine Bacteria (0) /hpf Hyaline Casts (0-2) /lph Urine Mucus (None) /hpf Ur Culture Indicated? Urine Opiates Screen Ur Oxycodone Screen U Oxycod/Oxymor Confirm Urine Methadone Screen Ur Methadone Confirm Ur Barbiturates Screen Ur Barbiturate Confirm Ur Phencyclidine Scrn Urine PCP Confirm Ur Amphetamines Screen U Benzodiazepines Scrn Ur Benzodiazepine, Qnt Urine Cocaine Screen Urine Cocaine Confirm U Cannabinoids Confirm U Marijuana (THC) Screen Ethyl Alcohol mg/dL mg/dL Ethyl Alcohol g/dL (<0.010) gm/dL 01/24/23 Range/Units 14:01 WBC (4.5-11.0) K/mcL RBC (3.59-5.38) M/mcL Hgb (11.2-15.7) g/dL Hct (34.1-44.9) % POC Hct (36-48) MCV (80.0-100.0) fL MCH (26.0-34.0) pg MCHC (31.0-36.0) g/dL RDW (11.5-14.5) % Plt Count (140-440) K/mcL MPV (8.8-12.5) fL Immature Gran % (Auto) (0.0-0.5) % Neut % (Auto) (38.0-78.0) % Lymph % (Auto) (15.5-49.0) % Drew % (Auto) (1.0-12.0) % Eos % (Auto) (0.0-7.0) % Baso % (Auto) (0.0-2.0) % Lymph # (Auto) (1.50-4.80) K/mcL Drew # (Auto) (0.10-0.90) K/mcL Eos # (Auto) (0.00-0.70) K/mcL Baso # (Auto) (0.00-0.30) K/mcL Seg Neutrophils % (38-78) % Band Neutrophils % (0-10) % Lymphocytes % (15-49) % Monocytes % (Manual) (1-12) % Immature Gran # (0.00-0.05) K/mcl Absolute Neutrophils (1.80-8.00) K/mcL Differential Comment Platelet Estimate (Normal) RBC Morphology (Normal) Hypochromasia (None Seen) POC VBG pH 7.37 (7.32-7.42) POC VBG pCO2 at Temp 49.5 (41-51) POC VBG pO2 49 H (25-40) POC VBG HCO3 28.4 H (24-28) POC VBG Total CO2 30.0 H (25-29) POC Venous O2 Sat 83.0 H (40-70) POC VBG Base Excess 3.0 H (-2-2) VBG Lactic Acid 1.5 (0.5-2) POC Sodium (133-145) Sodium (133-145) mmol/L POC Potassium (3.3-5.1) Potassium (3.3-5.1) mmol/L POC Chloride (96-108) Chloride (96-108) mmol/L Carbon Dioxide (22-30) mmol/L POC Total CO2 (22-30) Anion Gap (8.0-16.0) POC BUN (6-20) BUN (8-23) mg/dL Creatinine (0.6-1.1) mg/dL POC Creatinine (0.6-1.2) GFR Calculation Glucose (70-105) mg/dL POC Glucose (70-105) Calcium (8.6-10.4) mg/dL POC WB Ioniz Calcium (1.16-1.32) Total Bilirubin (0.1-1.0) mg/dL Direct Bilirubin (<0.3) mg/dL AST (<32) U/L ALT (<40) U/L Alkaline Phosphatase (39-117) U/L Total Protein (5.9-8.4) gm/dL Albumin (3.2-5.2) gm/dL Globulin (2.2-3.7) gm/dL Procalcitonin (<0.10) ng/mL TSH (0.27-5.01) uIU/mL Urine Color Urine Appearance (Clear) Urine pH (5.0-9.0) Ur Specific [place] (1.000-1.035) Urine Protein (Negative) mg/dL Urine Glucose (UA) (Negative) mg/dL Urine Ketones (Negative) mg/dL Urine Occult Blood (Negative) mg/dL Urine Nitrate (Negative) Urine Bilirubin (Negative) mg/dL Urine Urobilinogen mg/dL Ur Leukocyte Esterase (Negative) /uL Urine RBC (0-3) /hpf Urine WBC (0-4) /hpf Ur Squamous Epith Cells (0-4) /hpf Urine Bacteria (0) /hpf Hyaline Casts (0-2) /lph Urine Mucus (None) /hpf Ur Culture Indicated? Urine Opiates Screen Ur Oxycodone Screen U Oxycod/Oxymor Confirm Urine Methadone Screen Ur Methadone Confirm Ur Barbiturates Screen Ur Barbiturate Confirm Ur Phencyclidine Scrn Urine PCP Confirm Ur Amphetamines Screen U Benzodiazepines Scrn Ur Benzodiazepine, Qnt Urine Cocaine Screen Urine Cocaine Confirm U Cannabinoids Confirm U Marijuana (THC) Screen Ethyl Alcohol mg/dL mg/dL Ethyl Alcohol g/dL (<0.010) gm/dL Discharge Plan Patient/Caregiver Discharge Instructions Pt seen by [employer] [facility]/PA only: No Clinical Impression: Acute low back pain due to trauma, Acute upper back pain, Acute alteration in mental status, Acute dehydration, Acute hyperkalemia, Urinary tract infection, acute, Cellulitis of right middle finger, Tachycardia, Hypoxia, Methamphetamine abuse, Emphysematous cystitis, Bacteremia Patient Disposition: Xfer As Inpt ([facility]) Condition: Serious Follow up with: Thierno Leonard DO [Primary Care Provider] - Prescriptions: No Action (DME) Oxygen 3LPM QHS See Rx Instructions .Route .MEDSUPPLY Qty: 1 0RF Rx Instructions: As directed (DME) lancets [OneTouch UltraSoft Lancets] Misc See Rx Instructions .Route Qty: 100 3RF Rx Instructions: As directed to test blood sugars three times daily (DME) CPAP mask and supplies See Rx Instructions .Route .MEDSUPPLY Qty: 1 0RF Rx Instructions: As directed (DME) compression socks, large Misc See Rx Instructions .Route Qty: 2 0RF Rx Instructions: As directed daily Januvia 25 mg tablet 25 mg PO QAM Qty: 90 3RF (DME) pen needle, diabetic [1st Tier Unifine Pentips] 31 gauge x 3/16" needle See Rx Instructions .Route Qty: 200 3RF Rx Instructions: Use to administer insulin twice daily trazodone 50 mg tablet 50 mg PO QHS PRN (Reason: insomnia) Qty: 90 1RF spironolactone 25 mg tablet 25 mg PO QDAY Qty: 90 1RF (DME) insulin syringe-needle U-100 [BD Insulin Syringe] 1 mL 27 gauge x 1/2" syringe See Rx Instructions .Route Qty: 500 3RF Rx Instructions: Use to administer insulin twice daily albuterol sulfate [Ventolin HFA] 90 mcg/actuation HFA aerosol inhaler 1 - 2 puff inhalation Q6H PRN (Reason: shortness of breath or wheezing) Qty: 8.5 3RF amlodipine 10 mg tablet 10 mg PO QDAY Qty: 90 0RF escitalopram oxalate 10 mg tablet 10 mg PO QDAY Qty: 30 1RF famotidine 20 mg tablet 20 mg PO BID Qty: 180 0RF buspirone 5 mg tablet 5 mg PO BID Qty: 180 0RF prednisone 20 mg tablet 40 mg PO QDAY Qty: 180 0RF tramadol 50 mg tablet 100 mg PO QID PRN (Reason: pain) 30 Days Qty: 240 0RF Rx Instructions: MAY NOT FILL UNTIL 01/21/23 dicyclomine 20 mg tablet 20 mg PO QID PRN (Reason: stomach cramping) Qty: 120 5RF budesonide 3 mg capsule,delayed,extend.release 3 mg PO QDAY 14 Days Qty: 14 0RF insulin aspart U-100 100 unit/mL (3 mL) insulin pen 10 unit subcut TID Rx Instructions: plus sliding scale adjustment due to steroid use MAXIUMUM DOSE 42U DAILY alprazolam 0.25 mg tablet 0.25 mg PO TID PRN insulin glargine 100 unit/mL (3 mL) insulin pen 15 unit subcut QDAY (DME) OneTouch Ultra Test Strip See Rx Instructions .Route Qty: 200 3RF Rx Instructions: Use to test blood sugar three times daily (DME) incontinence pad, liner, disp Pad See Rx Instructions .Route Qty: 120 0RF Rx Instructions: As directed daily lisinopril 40 mg tablet 40 mg PO BID
--- NOTE | 2023-01-24 11:55 | Cat Scan Report ---
CLINICAL INFORMATION: Decreased level consciousness. Trauma thoracic and lumbar pain abdominal pain. COMPARISON: Chest, abdomen and pelvic CT 02/10/2014 TECHNIQUE: Enteric contrast was utilized. 80 cc of Isovue-370 were injected intravenously, and 50 seconds later, 0.625 mm helical slices were obtained from the lung apices through the subtrochanteric regions of the femurs. Following reconstruction, 2.5 mm sagittal, coronal and axial reformatted images were processed and reviewed at multiple windows and levels. 7 mm MIP reconstructions were obtained through the lungs to optimize nodule detection.The exam was performed using radiation dose optimization techniques including, but not limited to, automated exposure control, adjustment of the mA and/or kV according to patient size and use of iterative reconstruction technique. FINDINGS: Pulmonary parenchymal windows show moderate centrilobular emphysema which show slight progression 2013. There is subsegmental atelectasis in the posterior right lower lobe and scarring or atelectasis in the posterior left lower lobe and lingula. No nodules appreciated.. Pleural spaces are unremarkable-no effusions. Mediastinal windows show the heart is grossly normal in size and configuration. Scattered calcific plaque present in the coronary arteries. The central pulmonary arteries are enlarged compatible with mild pulmonary hypertension related to COPD. the main pulmonary diameter 3.2 cm. No evidence of pulmonary embolus.. Thoracic aorta is normal diameter and well-opacified. There is no adenopathy in the mediastinal, hilar or axillary regions. Esophagus is grossly normal. The thyroid is unremarkable. Abdominal images show the gallbladder and bile ducts, liver, both kidneys, adrenal glands, spleen, pancreas and aorta, including aortic branches, are normal in size, configuration and attenuation without focal lesion. There is no free air, free fluid or adenopathy. Pelvic images show marked emphysema within the urinary bladder wall compatible with severe emphysematous cystitis. Delayed images through the pelvis show the contrast was retained within the urinary bladder-there is no evidence of extravasation to suggest ben urinary bladder rupture. Uterus is anteflexed and normal postmenopausal size 7.3 x 4 cm. IUD is properly positioned endometrial cavity. There is a 3.7 cm simple cyst on the right ovary. Left ovary is normal. Large anterior abdominal wall hernias are new from the 2014 exam: 14 cm left Spigelian hernia which contains mesenteric fat, a few loops of small bowel and sigmoid colon. 17 cm umbilical hernia containing mesenteric fat and a few loops of small bowel and a segment of mid transverse colon. There is an adjacent 10 cm periumbilical hernia which contains a few loops of small bowel and mesentery. The bowel does not appear obstructed or incarcerated in any of the hernias. Bone windows show multiple osteoporotic compression fractures which are new from the remote CT nine years ago: Mild T4-T5, mild T9-T10 mild T12-L1 mild L2 moderate L3. Exact chronicity of these are unknown. There are no definite acute fractures identified throughout the chest abdomen or pelvis. Moderate motion artifact precludes optimal examination for rib fractures IMPRESSION: 1. Severe emphysematous cystitis. 2. Osteoporotic compression fractures mid thoracic and lumbar spine. Although new from a remote study nine years ago, the exact acuity is unknown. They're more likely chronic than acute. No definite acute fracture or other acute posttraumatic change. It should be noted that moderate motion artifact precludes optimal rib fracture assessment. 3. Anterior abdominal wall hernia is new from remote study nine years ago. All hernias containing mesenteric fat and bowel loops which does not appear obstructed or incarcerated: 17 cm umbilical hernia, 10 cm right periumbilical hernia and 14 cm left Spigelian hernia 4. Moderate centrilobular emphysema with atelectasis in the lower lobes. Mild enlargement central pulmonary arteries compatible pulmonary hypertension related to COPD. 5. 3.7 cm simple cyst right ovary. Interpreted and Authenticated by: Thierno Herron 01/24/23
--- NOTE | 2023-01-24 11:56 | XRay Report ---
CLINICAL INFORMATION: Decrease level consciousness COMPARISON: 10/15/2022 TECHNIQUE: Portable FINDINGS: The heart size, mediastinum and pulmonary vessels are unremarkable. COPD changes and minor bibasilar atelectasis noted.. There are no effusions. The bones and soft tissues are within normal limits. IMPRESSION: COPD with minor bibasilar atelectasis Interpreted and Authenticated by: Thierno Herron 01/24/23
[2023-01-24] MEDS: VANCOMYCIN 1,000 MG in 0.9 % SODIUM CHLORIDE 250 ML IV SCH ×2 (12:19→23:22)
--- NOTE | 2023-01-24 13:08 | Internal Med History&Physical ---
HPI History of Present Illness Patient information: Note initiated : 01/24/23 at 1:02 pm Service Date, if different from initiated Date: [] Patient: Elizabeth Verduzco a 62 y/o F admitted on for back pain. Chief Complaint: [] History of present illness: Ms. Verduzco is a 62 year old F Patient presented to the ED last night for back pain and she was nearly obtunded. She says she ran out of her pain medications and that her primary care would not refill it early. She has a meth amphetamine user, states she snorts it but denies IV use. She has had multiple falls resulting in compression fractures of her spine. She fell recently onto family members coffee table and also injured her right finger middle finger. She denies headache fever chills nausea vomiting chest pain stomach pain diarrhea. No chest pain shortness of breath. She also was without her oxygen at 1 point so she was found to have saturation in the 70s initially. She uses 3 L of nasal cannula daily for COPD. She also found to be tachycardic sinus which continued despite 3 L of IV fluids. Urine and imaging of the bladder findings concerning for emphysematous cystitis. She was hyperkalemic at 5.7 which increased to 6.8 and finally dropped to 3.4 this morning. UDS of course was positive for methamphetamine. It also was positive for opioids for she has no prescriptions. Review of Systems: Pertinent positives as above. Denies headache/fever/chills/nausea/vomitin g/chest or abdominal pain/cough/dyspnea/diarrhea. Remaining 10 point review of system reviewed negative PHYSICAL EXAM General: Disheveled and occasional moaning, mild distress Eyes/N/T: EOMI, no scleral icterus, dry MM Head/Neck: neck supple, full ROM, normocephalic atraumatic CV: Tachycardic and regular, No murmurs, normal s1/s2 Pulm: Clear b/l, no wheezing/rhonchi/rales, no respiratory distress Abd: soft, nontender, +BS x4 Ext: no clubbing/cyanosis/edema, nontender, right middle finger swollen mildly erythematous Neuro: Quite lethargic though does arouse to answer questions slowly, moves all extremitiesSpontaneously, CN 2-12 grossly intact, sensations intact b/l upper/lower, follows commands Psychiatric: Skin: warm/dry, Multiple small scabbed wounds PFSH PFSH All Active Problems (Updated 01/24/23 @ 11:36 by Farhat Zhao MD) Acute low back pain due to trauma (Acute) Acute upper back pain (Acute) Acute alteration in mental status (Acute) Acute dehydration (Acute) Acute hyperkalemia (Acute) Urinary tract infection, acute (Acute) Cellulitis of right middle finger (Acute) Tachycardia (Acute) Hypoxia (Acute) Methamphetamine abuse (Acute) Emphysematous cystitis (Acute) Bacteremia (Acute) Aspiration pneumonia (Acute) Diabetic ulcer of chew (Acute) Hypoglycemia (Acute) Acute GI bleeding (Acute) Diarrhea (Acute) HSP (Henoch Schonlein purpura) (Chronic) COPD exacerbation (Acute) Elevated blood sugar level (Acute) Depression (Acute) Hernia (Acute) Gout (Acute) Hepatitis C (Acute) Glaucoma (Acute) Arthritis (Acute) Chronic back pain (Acute) Diverticulitis (Acute) Anxiety (Acute) Type 2 diabetes mellitus (Chronic) IBS (irritable bowel syndrome) (Acute) HTN (hypertension) (Acute) COPD (chronic obstructive pulmonary disease) (Acute) Medical History Anxiety Arthritis Chronic back pain COPD (chronic obstructive pulmonary disease) COPD exacerbation Depression recent loss of son Diverticulitis Elevated blood sugar level Glaucoma Gout Hepatitis C Hernia HTN (hypertension) IBS (irritable bowel syndrome) Type 2 diabetes mellitus Surgical History History of colostomy (~2013) History of colostomy reversal (~2015) History of eye surgery (~2015) History of tubal ligation (~1992) Family History Sister Cancer High blood pressure Father Cancer Diabetes High blood pressure Mother Diabetes High blood pressure Grandfather High blood pressure Social History marital status: occupational status: disabled smoking status: Current every day smoker alcohol intake frequency: a few times a week substance use type: does not use MEDS/ALLERGIES Home Medications and Allergies Home Medications Medication Instructions Recorded Confirmed Type Oxygen 3LPM QHS #1 ea 02/02/22 08/17/22 Rx lancets (OneTouch UltraSoft #100 ea 03/25/22 12/22/22 Rx Lancets) CPAP mask and supplies #1 ea 04/20/22 12/22/22 Rx blood sugar diagnostic (OneTouch #200 ea 05/10/22 08/17/22 Rx Ultra Test strips) incontinence pad, liner, disp #120 ea 05/10/22 12/22/22 Rx compression socks, large #2 ea 05/13/22 12/22/22 Rx sitagliptin phosphate 25 mg tablet 25 mg PO QAM #90 tabs 05/13/22 12/22/22 Rx (Januvia) pen needle, diabetic 31 gauge x #200 ea 05/24/22 08/17/22 Rx 3/16" (1st Tier Unifine Pentips) trazodone 50 mg tablet 50 mg PO QHS PRN insomnia #90 tabs 08/16/22 12/22/22 Rx budesonide 3 mg 3 mg PO QDAY 2 weeks #14 ea 08/17/22 12/22/22 Rx capsule,delayed,extended release dicyclomine 20 mg tablet 20 mg PO QID PRN stomach cramping 08/17/22 12/22/22 Rx #120 tabs insulin syringe-needle U-100 1 mL #500 ea 10/12/22 12/22/22 Rx 27 gauge x 1/2" (BD Insulin Syringe) spironolactone 25 mg tablet 25 mg PO QDAY #90 tabs 10/12/22 12/22/22 Rx albuterol sulfate 90 mcg/actuation 1 - 2 puff inhalation Q6H PRN 11/01/2212/07 Rx aerosol inhaler (Ventolin HFA) shortness of breath or wheezing #8.5 grams amlodipine 10 mg tablet 10 mg PO QDAY #90 tabs 12/06/22 12/22/22 Rx alprazolam 0.25 mg tablet 0.25 mg PO TID PRN 12/22/22 12/22/22 History insulin aspart U-100 100 unit/mL 10 unit subcut TID 12/22/22 History (3 mL) subcutaneous pen insulin glargine 100 unit/mL (3 15 unit subcut QDAY 12/22/22 History mL) subcutaneous pen lisinopril 40 mg tablet 40 mg PO QDAY 12/22/22 History escitalopram oxalate 10 mg tablet 10 mg PO QDAY #30 tabs 01/02/23 Rx buspirone 5 mg tablet 5 mg PO BID #180 tabs 01/09/23 Rx famotidine 20 mg tablet 20 mg PO BID #180 tabs 01/09/23 Rx prednisone 20 mg tablet 40 mg PO QDAY #180 tabs 01/09/23 Rx tramadol 50 mg tablet 100 mg PO QID PRN pain 30 days 01/20/23 Rx #240 tabs Allergies Allergy/AdvReac Type Severity Reaction Status Date / Time glipizide AdvReac Intermediate Dizziness Verified 12/22/22 11:53 EXAM Constitutional Vitals: Temp Pulse Resp BP Pulse Ox O2 Del Method O2 Flow Rate 97.4 F 142 H 26 H 137/82 96 Nasal Cannula 5 01/23/23 23:23 01/24/23 12:31 01/24/23 12:31 01/24/23 12:31 01/24/23 12:31 01/24/23 12:31 01/24/23 12:31 DATA Data Completed and Pending Labs: Labs from last 24 hours 01/24/23 01/24/23 01/24/23 07:36 06:04 05:47 WBC RBC Hgb Hct POC Hct 49.0 H MCV MCH MCHC RDW Plt Count MPV Immature Gran % (Auto) Neut % (Auto) Lymph % (Auto) Sully % (Auto) Eos % (Auto) Baso % (Auto) Lymph # (Auto) Sully # (Auto) Eos # (Auto) Baso # (Auto) Immature Gran # Absolute Neutrophils Differential Comment POC VBG pH POC VBG pCO2 at Temp POC VBG pO2 POC VBG HCO3 POC VBG Total CO2 POC Venous O2 Sat POC VBG Base Excess VBG Lactic Acid POC Sodium 136 Sodium 139 POC Potassium 6.8 H* Potassium 3.4 POC Chloride 101 Chloride 102 Carbon Dioxide 27 POC Total CO2 31.0 H Anion Gap 10.0 POC BUN 38 H BUN 24 H Creatinine 0.5 L POC Creatinine 0.7 GFR Calculation 104 Glucose 121 H POC Glucose 158 H Calcium 9.3 POC WB Ioniz Calcium 1.17 Total Bilirubin Direct Bilirubin AST ALT Alkaline Phosphatase Total Protein Albumin Globulin TSH Urine Color Urine Appearance Urine pH Ur Specific [place] Urine Protein Urine Glucose (UA) Urine Ketones Urine Occult Blood Urine Nitrate Urine Bilirubin Urine Urobilinogen Ur Leukocyte Esterase Urine RBC Urine WBC Ur Squamous Epith Cells Urine Bacteria Hyaline Casts Urine Mucus Ur Culture Indicated? Urine Opiates Screen Suspect positive A Ur Opiates Confirm Pending Ur Oxycodone Screen None detected U Oxycod/Oxymor Confirm TNP Urine Methadone Screen None detected Ur Methadone Confirm TNP Ur Barbiturates Screen None detected Ur Barbiturate Confirm TNP Ur Phencyclidine Scrn None detected Urine PCP Confirm TNP Ur Amphetamines Screen Suspect positive A U Amphetamines Confirm Pending U Benzodiazepines Scrn None detected Ur Benzodiazepine, Qnt TNP Urine Cocaine Screen None detected Urine Cocaine Confirm TNP U Cannabinoids Confirm TNP U Marijuana (THC) Screen None detected Ethyl Alcohol mg/dL Ethyl Alcohol g/dL 01/24/23 01/24/23 01/24/23 05:45 05:28 00:39 WBC RBC Hgb Hct POC Hct MCV MCH MCHC RDW Plt Count MPV Immature Gran % (Auto) Neut % (Auto) Lymph % (Auto) Sully % (Auto) Eos % (Auto) Baso % (Auto) Lymph # (Auto) Sully # (Auto) Eos # (Auto) Baso # (Auto) Immature Gran # Absolute Neutrophils Differential Comment POC VBG pH 7.42 POC VBG pCO2 at Temp 46.2 POC VBG pO2 56 H POC VBG HCO3 29.8 H POC VBG Total CO2 31.0 H POC Venous O2 Sat 89.0 H POC VBG Base Excess 5.0 H* VBG Lactic Acid 2.0 POC Sodium Sodium POC Potassium Potassium POC Chloride Chloride Carbon Dioxide POC Total CO2 Anion Gap POC BUN BUN Creatinine POC Creatinine GFR Calculation Glucose POC Glucose Calcium POC WB Ioniz Calcium Total Bilirubin Direct Bilirubin AST ALT Alkaline Phosphatase Total Protein Albumin Globulin TSH 0.36 Urine Color Aparna Urine Appearance Cloudy A Urine pH 5.0 Ur Specific [place] 1.028 Urine Protein 100 A Urine Glucose (UA) 50 A Urine Ketones 20 A Urine Occult Blood 0.20 Urine Nitrate Negative Urine Bilirubin Negative Urine Urobilinogen 2.0 A Ur Leukocyte Esterase 25 A Urine RBC 34 H Urine WBC 36 H Ur Squamous Epith Cells 5 H Urine Bacteria Many A Hyaline Casts 57 H Urine Mucus Many A Ur Culture Indicated? No Urine Opiates Screen Ur Opiates Confirm Ur Oxycodone Screen U Oxycod/Oxymor Confirm Urine Methadone Screen Ur Methadone Confirm Ur Barbiturates Screen Ur Barbiturate Confirm Ur Phencyclidine Scrn Urine PCP Confirm Ur Amphetamines Screen U Amphetamines Confirm U Benzodiazepines Scrn Ur Benzodiazepine, Qnt Urine Cocaine Screen Urine Cocaine Confirm U Cannabinoids Confirm U Marijuana (THC) Screen Ethyl Alcohol mg/dL Ethyl Alcohol g/dL 01/24/23 01/24/23 01/24/23 00:28 00:28 00:28 WBC 10.3 RBC 5.14 Hgb 14.8 Hct 48.1 H POC Hct MCV 93.6 MCH 28.8 MCHC 30.8 L RDW 14.7 H Plt Count 167 MPV 11.6 Immature Gran % (Auto) 1.1 H Neut % (Auto) 94.8 H Lymph % (Auto) 1.6 L Sully % (Auto) 2.1 Eos % (Auto) 0 Baso % (Auto) 0.4 Lymph # (Auto) 0.17 L Sully # (Auto) 0.22 Eos # (Auto) 0 Baso # (Auto) 0.04 Immature Gran # 0.11 H Absolute Neutrophils 9.79 H Differential Comment POC VBG pH POC VBG pCO2 at Temp POC VBG pO2 POC VBG HCO3 POC VBG Total CO2 POC Venous O2 Sat POC VBG Base Excess VBG Lactic Acid POC Sodium Sodium POC Potassium Potassium POC Chloride Chloride Carbon Dioxide POC Total CO2 Anion Gap POC BUN BUN Creatinine POC Creatinine GFR Calculation Glucose POC Glucose Calcium POC WB Ioniz Calcium Total Bilirubin 0.6 Direct Bilirubin 0.3 H AST 21 ALT 23 Alkaline Phosphatase 148 H Total Protein 6.8 Albumin 2.6 L Globulin 4.2 H TSH Urine Color Urine Appearance Urine pH Ur Specific [place] Urine Protein Urine Glucose (UA) Urine Ketones Urine Occult Blood Urine Nitrate Urine Bilirubin Urine Urobilinogen Ur Leukocyte Esterase Urine RBC Urine WBC Ur Squamous Epith Cells Urine Bacteria Hyaline Casts Urine Mucus Ur Culture Indicated? Urine Opiates Screen Ur Opiates Confirm Ur Oxycodone Screen U Oxycod/Oxymor Confirm Urine Methadone Screen Ur Methadone Confirm Ur Barbiturates Screen Ur Barbiturate Confirm Ur Phencyclidine Scrn Urine PCP Confirm Ur Amphetamines Screen U Amphetamines Confirm U Benzodiazepines Scrn Ur Benzodiazepine, Qnt Urine Cocaine Screen Urine Cocaine Confirm U Cannabinoids Confirm U Marijuana (THC) Screen Ethyl Alcohol mg/dL < 10.0 Ethyl Alcohol g/dL < 0.010 01/24/23 00:22 WBC RBC Hgb Hct POC Hct 53.0 H MCV MCH MCHC RDW Plt Count MPV Immature Gran % (Auto) Neut % (Auto) Lymph % (Auto) S[place] % (Auto) Eos % (Auto) Baso % (Auto) Lymph # (Auto) [place] # (Auto) Eos # (Auto) Baso # (Auto) Immature Gran # Absolute Neutrophils Differential Comment POC VBG pH POC VBG pCO2 at Temp POC VBG pO2 POC VBG HCO3 POC VBG Total CO2 POC Venous O2 Sat POC VBG Base Excess VBG Lactic Acid POC Sodium 136 Sodium POC Potassium 5.7 H Potassium POC Chloride 97 Chloride Carbon Dioxide POC Total CO2 33.0 H Anion Gap POC BUN 36 H BUN Creatinine POC Creatinine 0.7 GFR Calculation Glucose POC Glucose 200 H Calcium POC WB Ioniz Calcium 1.28 Total Bilirubin Direct Bilirubin AST ALT Alkaline Phosphatase Total Protein Albumin Globulin TSH Urine Color Urine Appearance Urine pH Ur Specific [place] Urine Protein Urine Glucose (UA) Urine Ketones Urine Occult Blood Urine Nitrate Urine Bilirubin Urine Urobilinogen Ur Leukocyte Esterase Urine RBC Urine WBC Ur Squamous Epith Cells Urine Bacteria Hyaline Casts Urine Mucus Ur Culture Indicated? Urine Opiates Screen Ur Opiates Confirm Ur Oxycodone Screen U Oxycod/Oxymor Confirm Urine Methadone Screen Ur Methadone Confirm Ur Barbiturates Screen Ur Barbiturate Confirm Ur Phencyclidine Scrn Urine PCP Confirm Ur Amphetamines Screen U Amphetamines Confirm U Benzodiazepines Scrn Ur Benzodiazepine, Qnt Urine Cocaine Screen Urine Cocaine Confirm U Cannabinoids Confirm U Marijuana (THC) Screen Ethyl Alcohol mg/dL Ethyl Alcohol g/dL Preliminary micro results at discharge 01/24/23 00:34 Blood Culture - Preliminary Blood Gram positive cocci 01/24/23 00:28 Blood Culture - Preliminary Blood Gram positive cocci A/P Narrative A/P Narrative: A: *Emphysematous cystitis(): *Bacteremia(GPC in clusters): *Sepsis: -bandemia *Encephalopathy: 2/2 above + meth use *Hyperkalemia: *Volume depletion: *Sinus tachycardia: Patient states she is chronically tachycardic, may need beta-shahnaz *Substance abuse: With methamphetamine and likely opioid abuse * *Acute on chronic back pain: 2/2 recent fall *right middle finger swelling/pain: 2/2 fall *COPD(3L@home): *DM2: *HTN: *GERD: *Anxiety/Depression: prn ativan *Tobacco abuse: P: -IVF -Rocephin/Vanco pedning cx's, pending BC/UC -serial BC's -echo pending -monitor renal fxn/uop/i&o -neurochecks -monitor potassium and other electrolytes and treat accordingly -quality assurance monitor final rhythm -start BB after fluid resuscitation if HR sinus and still tachy -Right hand x-ray eval for finger fracture -lumbar mri, eval for osteo -substance abuse counseling -cont home IH's and home O2, prn nebs -cont norvasc/acei -cont psych meds -Hold aldactone for now -Home medication reconciliation -PT/OT -Smoking cessation counseling >3 mintues -CM for placement -ppx: lovenox / home H2 Time Spent With Patient Time: Total time spent is greater than 50% in coordination of care (as documented) at patient's floor/unit and/or counseling patient: Initial: Total time with patient: 75 - 90 minutes
[2023-01-24] MEDS ORDERED: METOPROLOL TARTRATE 5 MG/5 ML VIAL IV ONE ×2 (13:47→21:36)
[2023-01-24 14:12] LABS: Band Neutrophils % 17 % (0-10); Hypochromasia 1+ (None Seen); Lymphocytes % 5 % (15-49); Monocytes % (Manual) 1 % (1-12); Platelet Estimate NORMAL (Normal); RBC Morphology ABNORMAL (Normal); Segmented Neutrophils % 77 % (38-78)
[2023-01-24] MEDS: 0.9 % SODIUM CHLORIDE 1,000 ML IV SCH (14:20)
[2023-01-24] MEDS ORDERED: METHADONE 5 MG TABLET PO PRN (18:15)
[2023-01-24] MEDS ORDERED: ACETAMINOPHEN 325 MG TABLET PO PRN (21:36)
[2023-01-24] MEDS ORDERED: SENNOSIDES 1 TABLET PO PRN (21:36)
[2023-01-24] MEDS ORDERED: 0.9 % SODIUM CHLORIDE 1,000 ML IV SCH (21:36)
[2023-01-24] MEDS ORDERED: ONDANSETRON 4 MG/2 ML VIAL IV PRN (21:36)
[2023-01-24] MEDS ORDERED: LABETALOL 5 MG/ML ML IV PRN (21:36)
[2023-01-24] MEDS ORDERED: POTASSIUM CHLORIDE 20 MEQ TABLET PO PRN ×2 (21:36)
[2023-01-24] MEDS ORDERED: DEXTROSE 50% 50 ML VIAL IV PRN (21:36)
[2023-01-24] MEDS ORDERED: POTASSIUM CHLORIDE 40 MEQ in DEXTROSE 5% IN WATER 500 ML IV PRN (21:36)
[2023-01-24] MEDS ORDERED: MAGNESIUM SULFATE 2 GM/50 ML BAG IV PRN (21:36)
[2023-01-24] MEDS ORDERED: DEXTROSE 31 GM ORAL.SUSP PO PRN (21:36)
[2023-01-24] MEDS ORDERED: POLYETHYLENE GLYCOL 3350 17 GM PACKET PO PRN (21:36)
[2023-01-24] MEDS: DOCUSATE SODIUM 100 MG CAPSULE PO SCH (21:55)
[2023-01-24] MEDS: morphine 4 MG/ML VIAL IV PRN (21:58)
[2023-01-24] MEDS ORDERED: VANCOMYCIN PER PHARMACY IV SCH (22:00)
[2023-01-24] MEDS: INSULIN LISPRO 1 UNIT/0.01 ML UNIT SQ SCH (22:01)
[2023-01-24] MEDS: 0.9 % SODIUM CHLORIDE 10 ML SYRINGE IV SCH (22:03)
[2023-01-25] MEDS: morphine 4 MG/ML VIAL IV PRN ×3 (00:15→09:34)
[2023-01-25] MEDS: HYDROcodone/APAP 5/325MG TABLET PO PRN ×3 (01:00→23:19)
[2023-01-25] MEDS: METOPROLOL TARTRATE 5 MG/5 ML VIAL IV PRN (01:00)
--- NOTE | 2023-01-25 02:12 | XRay Report ---
CLINICAL INFORMATION: Third digit injury COMPARISON: None FINDINGS: No acute fracture identified. Small remote avulsion fracture of the radial base of the third proximal phalanx appreciated. Severe first CMC and moderate third and fourth DIP degeneration appreciated. There is mild degeneration in the remaining interphalangeal joints. Diffuse soft tissue swelling of the third digit noted.. IMPRESSION: Multilevel degeneration. No acute fracture Interpreted and Authenticated by: Thierno Herron 01/25/23
[2023-01-25] MEDS: 0.9 % SODIUM CHLORIDE 1,000 ML IV SCH (04:37)
[2023-01-25] MEDS: 0.9 % SODIUM CHLORIDE 10 ML SYRINGE IV SCH ×3 (05:19→20:31)
[2023-01-25] MEDS: IPRATROPIUM/ALBUTEROL 3 ML AMPUL.NEB NEB PRN (05:38)
[2023-01-25 07:19] LABS: Basophils # (Auto) 0.06 K/mcL (0.00-0.30); Basophils % (Auto) 0.8 % (0.0-2.0); Eosinophils # (Auto) 0 K/mcL (0.00-0.70); Eosinophils % (Auto) 0 % (0.0-7.0); Hematocrit 41.9 % (34.1-44.9); Hemoglobin 12.4 g/dL (11.2-15.7); Lymphocytes % (Auto) 5.2 % (15.5-49.0); Mean Corpuscular HGB Conc 29.6 g/dL (31.0-36.0); Mean Platelet Volume 11.4 fL (8.8-12.5); Monocytes # (Auto) 0.21 K/mcL (0.10-0.90); Monocytes % (Auto) 2.7 % (1.0-12.0); Neutrophils % (Auto) 89.9 % (38.0-78.0); Platelet Count 157 K/mcL (140-440); RBC 4.32 M/mcL (3.59-5.38); Red Cell Distribution Width 15.1 % (11.5-14.5); WBC 7.7 K/mcL (4.5-11.0)
[2023-01-25] MEDS ORDERED: traZODone HCL 50 MG TABLET PO PRN (07:45)
[2023-01-25] MEDS ORDERED: DICYCLOMINE 20 MG TABLET PO PRN (07:45)
--- NOTE | 2023-01-25 07:46 | Internal Med Progress Note ---
SUBJECTIVE Subjective Patient information: Note initiated : 01/25/23 at 7:39 am Service Date, if different from initiated Date: [] Patient: Elizabeth Verduzco a 62 y/o F admitted on 01/24/23 for back pain. Chief Complaint: [] Interval history: History of present illness: Ms. Verduzco is a 62 year old F Patient presented to the ED last night for back pain and she was nearly obtunded. She says she ran out of her pain medications and that her primary ca re would not refill it early. She has a meth amphetamine user, states she snorts it but denies IV use. She has had multiple falls resulting in compression fractures of her spine. She fell recently onto family members coffee table and also injured her right finger middle finger. She denies headache fever chills nausea vomiting chest pain stomach pain diarrhea. No chest pain shortness of breath. She also was without her oxygen at 1 point so she was found to have saturation in the 70s initially. She uses 3 L of nasal cannula daily for COPD. She also found to be tachycardic sinus which continued despite 3 L of IV fluids. Urine and imaging of the bladder findings concerning for emphysematous cystitis. She was hyperkalemic at 5.7 which increased to 6.8 and finally dropped to 3.4 this morning. UDS of course was positive for methamphetamine. It also was positive for opioids for she has no prescriptions. 01/25 Patient seems to feel a little better today. Occasional nausea. Tachycardic. On home oxygen regimen. potassium actually a little low this morning.Pending repeat blood cultures Review of Systems: Pertinent positives as above. Denies headache/fever/chills//vomiting/chest or abdominal pain/cough/dyspnea/diarrhea. PHYSICAL EXAM General: Awake, no acute Eyes/N/T: EOMI, no scleral icterus, Head/Neck: neck supple, full ROM, CV: Tachycardic and regular, No murmurs, Pulm: fine rales b/l, no wheezing, no respiratory distress Abd: soft, nontender, +BS x4 Ext: no clubbing/cyanosis, mild b/l LE edema Neuro: Somewhat drowsy But improved, moves all extremities Spontaneously, sensations intact b/l upper/lower, follows commands Psychiatric: Skin: warm/dry, Multiple small scabbed wounds Constitutional Vitals: Vital Signs Temp Pulse Resp BP Pulse Ox O2 Del Method O2 Flow Rate 96.8 F L 121 H 23 H 119/81 92 Nasal Cannula 3 01/25/23 04:00 01/25/23 06:01 01/25/23 06:01 01/25/23 06:01 01/25/23 06:01 01/25/23 06:01 01/25/23 06:01 Period Temp Pulse Resp BP Sys/Moffett Pulse Ox O2 Del Method O2 Flow Rate Last 24 Hr 96.8 F-99.7 F 115-144 15-28 113-155/62-113 91-97 Nasal Cannula-Nasal Cannula 3-5 Intake and Output 01/24/23 01/25/23 01/25/23 19:59 03:59 11:59 Intake Total 250 578 250 Output Total 2 1 Balance 250 576 249 Weight 82.508 kg Intake & Output: Intake & Output 01/24/23 01/25/23 01/25/23 19:59 03:59 11:59 Intake Total 250 578 250 Output Total 2 1 Balance 250 576 249 Weight 82.508 kg Intake: IV 250 578 250 Sodium Chloride 0.9% 1,000 ml @ 578 75 mls/hr IV .[id number] KAREN Rx#: [id number] Vancomycin 1,000 mg In Sodium 250 250 Chloride 0.9% 250 ml @ 250 mls/ hr IV Q12H KAREN Rx#:[id number] Oral 0 Output: # of times incontinent of urine 2 1 OBJ DATA Labs 01/25/23 06:15 01/24/23 07:36 Labs: Abnormal Lab Results 01/25/23 01/24/23 01/24/23 06:15 14:01 10:00 Hct POC Hct MCHC 29.6 L RDW 15.1 H Immature Gran % (Auto) 1.4 H Neut % (Auto) 89.9 H Lymph % (Auto) 5.2 L Lymph # (Auto) 0.40 L Band Neutrophils % Lymphocytes % Immature Gran # 0.11 H Absolute Neutrophils RBC Morphology Hypochromasia POC VBG pO2 49 H POC VBG HCO3 28.4 H POC VBG Total CO2 30.0 H POC Venous O2 Sat 83.0 H POC VBG Base Excess 3.0 H POC Potassium POC Total CO2 POC BUN BUN Creatinine Glucose POC Glucose Direct Bilirubin Alkaline Phosphatase Albumin Globulin Procalcitonin 1.22 H Urine Appearance Urine Protein Urine Glucose (UA) Urine Ketones Urine Urobilinogen Ur Leukocyte Esterase Urine RBC Urine WBC Ur Squamous Epith Cells Urine Bacteria Hyaline Casts Urine Mucus Urine Opiates Screen Ur Amphetamines Screen 01/24/23 01/24/23 01/24/23 10:00 07:36 06:04 Hct POC Hct MCHC RDW Immature Gran % (Auto) Neut % (Auto) Lymph % (Auto) Lymph # (Auto) Band Neutrophils % 17 H Lymphocytes % 5 L Immature Gran # Absolute Neutrophils RBC Morphology Abnormal A Hypochromasia 1+ A POC VBG pO2 POC VBG HCO3 POC VBG Total CO2 POC Venous O2 Sat POC VBG Base Excess POC Potassium POC Total CO2 POC BUN BUN 24 H Creatinine 0.5 L Glucose 121 H POC Glucose Direct Bilirubin Alkaline Phosphatase Albumin Globulin Procalcitonin Urine Appearance Urine Protein Urine Glucose (UA) Urine Ketones Urine Urobilinogen Ur Leukocyte Esterase Urine RBC Urine WBC Ur Squamous Epith Cells Urine Bacteria Hyaline Casts Urine Mucus Urine Opiates Screen Suspect positive A Ur Amphetamines Screen Suspect positive A 01/24/23 01/24/23 01/24/23 05:47 05:28 00:39 Hct POC Hct 49.0 H MCHC RDW Immature Gran % (Auto) Neut % (Auto) Lymph % (Auto) Lymph # (Auto) Band Neutrophils % Lymphocytes % Immature Gran # Absolute Neutrophils RBC Morphology Hypochromasia POC VBG pO2 56 H POC VBG HCO3 29.8 H POC VBG Total CO2 31.0 H POC Venous O2 Sat 89.0 H POC VBG Base Excess 5.0 H* POC Potassium 6.8 H* POC Total CO2 31.0 H POC BUN 38 H BUN Creatinine Glucose POC Glucose 158 H Direct Bilirubin Alkaline Phosphatase Albumin Globulin Procalcitonin Urine Appearance Cloudy A Urine Protein 100 A Urine Glucose (UA) 50 A Urine Ketones 20 A Urine Urobilinogen 2.0 A Ur Leukocyte Esterase 25 A Urine RBC 34 H Urine WBC 36 H Ur Squamous Epith Cells 5 H Urine Bacteria Many A Hyaline Casts 57 H Urine Mucus Many A Urine Opiates Screen Ur Amphetamines Screen 01/24/23 01/24/23 01/24/23 00:28 00:28 00:22 Hct 48.1 H POC Hct 53.0 H MCHC 30.8 L RDW 14.7 H Immature Gran % (Auto) 1.1 H Neut % (Auto) 94.8 H Lymph % (Auto) 1.6 L Lymph # (Auto) 0.17 L Band Neutrophils % Lymphocytes % Immature Gran # 0.11 H Absolute Neutrophils 9.79 H RBC Morphology Hypochromasia POC VBG pO2 POC VBG HCO3 POC VBG Total CO2 POC Venous O2 Sat POC VBG Base Excess POC Potassium 5.7 H POC Total CO2 33.0 H POC BUN 36 H BUN Creatinine Glucose POC Glucose 200 H Direct Bilirubin 0.3 H Alkaline Phosphatase 148 H Albumin 2.6 L Globulin 4.2 H Procalcitonin Urine Appearance Urine Protein Urine Glucose (UA) Urine Ketones Urine Urobilinogen Ur Leukocyte Esterase Urine RBC Urine WBC Ur Squamous Epith Cells Urine Bacteria Hyaline Casts Urine Mucus Urine Opiates Screen Ur Amphetamines Screen Meds: Medications Acetaminophen (Acetaminophen 325 Mg Tablet) 650 mg PO Q6HP PRN; Protocol PRN Reason: Per Pain Protocol/Fever > 101 Hydrocodone Bitart/Acetaminophen (Hydrocodone/Apap 5/325mg Tablet) 1 tab PO Q4HP PRN PRN Reason: PAIN LEVEL 3-6 Last Admin: 01/25/23 01:00 Dose: 1 tab Albuterol/Ipratropium (Ipratropium/Albuterol 3 Ml Ampul.Neb) 3 ml NEB Q4HP PRN PRN Reason: Shortness Of Breath Last Admin: 01/25/23 05:38 Dose: 3 ml Dextrose (Dextrose 50% 50 Ml Vial) 0 ml IV UD PRN PRN Reason: Per Sliding Scale Diagnostic Test (Pha) (Accu-Chek 1 Each Strip) 1 each FS ACHS [facility] Last Admin: 01/24/23 21:56 Dose: 1 each Docusate Sodium (Docusate Sodium 100 Mg Capsule) 100 mg PO BID KAREN Last Admin: 01/24/23 21:55 Dose: Not Given Enoxaparin Sodium (Enoxaparin 40 Mg/0.4 Ml Syringe) 40 mg SQ DAILY [facility] Glucose (Dextrose 31 Gm Oral.Susp) 15 gm PO PRN PRN PRN Reason: Hypoglycemia Vancomycin HCl 1,000 mg/ (Sodium Chloride) 250 mls @ 250 mls/hr IV Q12H KAREN; Protocol Last Infusion: 01/25/23 04:36 Dose: Infused Ceftriaxone Sodium 2 gm/ (Dextrose) 50 mls @ 100 mls/hr IV Q24H [facility]; Protocol Potassium Chloride 40 meq/ (Dextrose) 520 mls @ 130 mls/hr IV UD PRN PRN Reason: Potassium < 3 Magnesium Sulfate (Magnesium Sulfate) 2 gm in 50 mls @ 50 mls/hr IV UD PRN PRN Reason: Magnesium </= 1.6 Sodium Chloride (Sodium Chloride 0.9%) 1,000 mls @ 75 mls/hr IV .[id number] [facility] Stop: 01/25/23 10:55 Last Admin: 01/24/23 22:03 Dose: 75 mls/hr Insulin Human Lispro (Insulin Lispro 1 Unit/0.01 Ml Unit) 0 unit SQ ACHS [facility]; Protocol Last Admin: 01/24/23 22:01 Dose: 2 unit Labetalol HCl (Labetalol 5 Mg/Ml Ml) 0 mg IV Q2HP PRN PRN Reason: Hypertension Metoprolol Tartrate (Metoprolol Tartrate 5 Mg/5 Ml Vial) 5 mg IV Q2HP PRN PRN Reason: Tachyarrhythmias HR>110 Last Admin: 01/25/23 01:00 Dose: 5 mg Morphine Sulfate (Morphine 4 Mg/Ml Vial) 0 mg IV Q3HP PRN PRN Reason: Pain Last Admin: 01/25/23 05:19 Dose: 3 mg Ondansetron HCl (Ondansetron 4 Mg/2 Ml Vial) 4 mg IV Q4HP PRN PRN Reason: Nausea And Vomiting Polyethylene Glycol (Polyethylene Glycol 3350 17 Gm Packet) 17 gm PO DAILYP PRN PRN Reason: Constipation Potassium Chloride (Potassium Chloride 20 Meq Tablet) 40 meq PO UD PRN PRN Reason: Potssium is 3-3.5 Potassium Chloride (Potassium Chloride 20 Meq Tablet) 40 meq PO UD PRN PRN Reason: Potassium < 3 Senna (Sennosides 1 Tablet) 2 tab PO DAILYP PRN PRN Reason: Constipation Sodium Chloride (0.9 % Sodium Chloride 10 Ml Syringe) 10 ml IV Q8 [facility] Last Admin: 01/25/23 05:19 Dose: 10 ml Vancomycin HCl (Vancomycin Per Pharmacy) 1 order IV UD KAREN A/P Narrative A/P Narrative: A: *Emphysematous cystitis(GNB): *Bacteremia(Staph Aureus): likely entry via skin with multiple scab wounds *Sepsis: -tachycardia/tachypnea/bandemia *Encephalopathy: 2/2 above + meth use -improving *Hyperkalemia: now hypo this am *Volume depletion: *Sinus tachycardia: Patient states she is chronically tachycardic, *Substance abuse: With methamphetamine and likely opioid abuse *Acute on chronic back pain: 2/2 recent fall and compression fx's *Compression Fx's of thoracic/lumbar spine *Generalized weakness/deconditioning/falling: *right middle finger swelling/pain: 2/2 fall, xray with avulsion fracture of third digit *h/o DVT's: on eliquis *COPD(3L@home): *RIKY on cpap: *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, currently on 40mg daily, continue *DM2: *HTN: *GERD: *Anxiety/Depression: prn ativan,ssri *Tobacco abuse: P: -IVF -Rocephin/Vanco pending cx's, pending BC/UC -serial BC's -echo pending -monitor renal fxn/uop/i&o -monitor potassium and other electrolytes and treat accordingly -cont acei, start BB for chronic sinus tach -cont home IH's and home O2, prn nebs -cont psych meds -Hold aldactone for now -basal and ssi -home qhs cpap -PT/OT, ST eval -Smoking & substance use cessation counseling -CM for placement -ppx: apixiban / home H2 Time Spent With Patient Time: Total time spent is greater than 50% in coordination of care (as documented) at patient's floor/unit and/or counseling patient: Subsequent: Total time with patient: 50 - 65 Minutes QUALITY VTE Deep Vein Thrombosis/Pulmonary Embolism Present on Admission: No
[2023-01-25] MEDS ORDERED: traMADol 50 MG TABLET PO PRN (08:03)
[2023-01-25 08:11] LABS: ALT/SGPT 29 U/L (<40); AST/SGOT 26 U/L (<32); Albumin 1.9 gm/dL (3.2-5.2); Albumin/Globulin Ratio 0.5 (1.0-2.3); Alkaline Phosphatase 264 U/L (39-117); Bilirubin,Direct 0.2 mg/dL (<0.3); Bilirubin,Total 0.4 mg/dL (0.1-1.0); Blood Urea Nitrogen 15 mg/dL (8-23); Calcium 9.5 mg/dL (8.6-10.4); Carbon Dioxide 27 mmol/L (22-30); Chloride 103 mmol/L (96-108); Globulin 4.1 gm/dL (2.2-3.7); Glomerular Filtration Rate 123; Glucose 126 mg/dL (70-105); Lactate Dehydrogenase 405 U/L (135-225); Phosphorous 2.5 mg/dL (2.5-4.5); Triglycerides 126 mg/dL (<150); Uric Acid 3.4 mg/dL (2.5-8.0)
[2023-01-25] MEDS: INSULIN LISPRO 1 UNIT/0.01 ML UNIT SQ SCH ×4 (08:24→20:29)
[2023-01-25] MEDS ORDERED: METOPROLOL SUCCINATE 50 MG TAB.XL.24H PO SCH (09:00)
[2023-01-25] MEDS ORDERED: ENOXAPARIN 40 MG/0.4 ML SYRINGE SQ SCH (09:00)
[2023-01-25] MEDS: cefTRIAXone 2 GM in DEXTROSE 5% IN WATER 50 ML IV SCH (09:19)
[2023-01-25] MEDS: DOCUSATE SODIUM 100 MG CAPSULE PO SCH ×2 (09:31→20:30)
[2023-01-25] MEDS: INSULIN GLARGINE, HUMAN 1 UNIT/0.01 ML SQ SCH (09:31)
[2023-01-25] MEDS: APIXABAN 5 MG TABLET PO SCH ×2 (09:31→20:30)
[2023-01-25] MEDS: LISINOPRIL 20 MG TABLET PO SCH ×2 (09:32→20:30)
[2023-01-25] MEDS: ESCITALOPRAM 10 MG TABLET PO SCH (09:32)
[2023-01-25] MEDS: predniSONE 20 MG TABLET PO SCH (09:32)
[2023-01-25] MEDS: FAMOTIDINE 20 MG TABLET PO SCH ×2 (09:32→20:30)
[2023-01-25 09:35] LABS: Anisocytosis 1+ (None Seen); Band Neutrophils % 10 % (0-10); Lymphocytes % 10 % (15-49); Monocytes % (Manual) 1 % (1-12); Myelocytes % 1 %; Platelet Estimate NORMAL (Normal); RBC Morphology ABNORMAL (Normal); Segmented Neutrophils % 78 % (38-78)
[2023-01-25] MEDS: VANCOMYCIN 1,000 MG in 0.9 % SODIUM CHLORIDE 250 ML IV SCH ×2 (10:19→20:30)
[2023-01-25] MEDS: Dorzolamide-Timolol 22.3-6.8 mg/mL drops OU SCH ×2 (11:08→20:30)
[2023-01-25] MEDS ORDERED: POTASSIUM CHLORIDE 20 MEQ TABLET PO ONE (11:08)
[2023-01-26] MEDS: IPRATROPIUM/ALBUTEROL 3 ML AMPUL.NEB NEB PRN (02:34)
[2023-01-26] MEDS: morphine 4 MG/ML VIAL IV PRN ×3 (02:37→21:32)
[2023-01-26] MEDS: 0.9 % SODIUM CHLORIDE 10 ML SYRINGE IV SCH ×4 (04:40→21:19)
[2023-01-26 07:03] LABS: ALT/SGPT 31 U/L (<40); AST/SGOT 36 U/L (<32); Albumin 1.8 gm/dL (3.2-5.2); Albumin/Globulin Ratio 0.5 (1.0-2.3); Alkaline Phosphatase 258 U/L (39-117); Bilirubin,Direct < 0.2 mg/dL (0-0.3); Bilirubin,Total 0.2 mg/dL (0.1-1.0); Blood Urea Nitrogen 16 mg/dL (8-23); Calcium 9.9 mg/dL (8.6-10.4); Carbon Dioxide 30 mmol/L (22-30); Chloride 104 mmol/L (96-108); Globulin 3.9 gm/dL (2.2-3.7); Glomerular Filtration Rate 111; Glucose 126 mg/dL (70-105); Lactate Dehydrogenase 311 U/L (135-225); Triglycerides 118 mg/dL (<150); Uric Acid 3.4 mg/dL (2.5-8.0)
[2023-01-26] MEDS ORDERED: POTASSIUM PHOSPHATE 40 MEQ in DEXTROSE 5% IN WATER 500 ML IV ONE (07:37)
[2023-01-26] MEDS ORDERED: DEXTROSE 5% IN WATER 500 ML IV ONE (07:38)
--- NOTE | 2023-01-26 07:40 | Internal Med Progress Note ---
SUBJECTIVE Subjective Patient information: Note initiated : 01/26/23 at 7:34 am Service Date, if different from initiated Date: [] Patient: Elizabeth Verduzco a 62 y/o F admitted on 01/24/23 for back pain. Chief Complaint: [] Interval history: History of present illness: Ms. Verduzco is a 62 year old F Patient presented to the ED last night for back pain and she was nearly obtunded. She says she ran out of her pain medications and that her primary ca re would not refill it early. She has a meth amphetamine user, states she snorts it but denies IV use. She has had multiple falls resulting in compression fractures of her spine. She fell recently onto family members coffee table and also injured her right finger middle finger. She denies headache fever chills nausea vomiting chest pain stomach pain diarrhea. No chest pain shortness of breath. She also was without her oxygen at 1 point so she was found to have saturation in the 70s initially. She uses 3 L of nasal cannula daily for COPD. She also found to be tachycardic sinus which continued despite 3 L of IV fluids. Urine and imaging of the bladder findings concerning for emphysematous cystitis. She was hyperkalemic at 5.7 which increased to 6.8 and finally dropped to 3.4 this morning. UDS of course was positive for methamphetamine. It also was positive for opioids for she has no prescriptions. 01/25 Patient seems to feel a little better today. Occasional nausea. Tachycardic. On home oxygen regimen. potassium actually a little low this morning.Pending repeat blood cultures 01/26 Patient says she she is feeling okay. Tachycardia improving And will increase beta-shahnaz. Repeat blood cultures from yesterday positive. Surveillance blood cultures for the morning. Mild hypokalemia and hypophosphatemia. Replete. ID consult. Review of Systems: Pertinent positives as above. Denies headache/fever/chills//vomiting/chest or abdominal pain/cough/dyspnea/diarrhea. PHYSICAL EXAM General: Awake, no acute Eyes/N/T: EOMI, no scleral icterus, Head/Neck: neck supple, full ROM, CV: Tachycardic and regular and rate improving, No murmurs, Pulm: fine rales b/l, no wheezing, no respiratory distress Abd: soft, nontender, +BS x4 Ext: no clubbing/cyanosis, mild b/l LE edema Neuro: Somewhat drowsy But improved overall, moves all extremities Spontaneously, sensations intact b/l upper/lower, follows commands, answers questions appropriately Psychiatric: Skin: warm/dry, Multiple small scabbed wounds Constitutional Vitals: Vital Signs Temp Pulse Resp BP Pulse Ox O2 Del Method O2 Flow Rate 98.1 F 108 H 14 142/81 93 Nasal Cannula 3 01/26/23 04:00 01/26/23 04:05 01/26/23 04:05 01/26/23 04:00 01/26/23 04:05 01/26/23 04:05 01/26/23 04:05 Period Temp Pulse Resp BP Sys/Moffett Pulse Ox O2 Del Method O2 Flow Rate Last 24 Hr 97.0 F-98.2 F 106-135 14-26 127-142/79-99 91-96 Nasal Cannula- Oxymask 3-3 Intake and Output 01/25/23 01/26/23 01/26/23 19:59 03:59 11:59 Intake Total 1000 250 Output Total 2 3 1 Balance 998 247 -1 Weight 82.508 kg 81.692 kg Intake & Output: Intake & Output 01/25/23 01/26/23 01/26/23 19:59 03:59 11:59 Intake Total 1000 250 Output Total 2 3 1 Balance 998 247 -1 Weight 82.508 kg 81.692 kg Intake: IV 1000 250 Sodium Chloride 0.9% 1,000 ml @ 1000 75 mls/hr IV .[id number] KAREN Rx#: [id number] Vancomycin 1,000 mg In Sodium 250 Chloride 0.9% 250 ml @ 250 mls/ hr IV Q12H KAREN Rx#:[id number] Output: # of times incontinent of urine 2 3 1 Other: Meal Dinner Percent of Meal Consumed 25% Feeding Ability Total Assistance OBJ DATA Labs 01/25/23 06:15 01/26/23 05:36 Labs: Abnormal Lab Results 01/26/23 01/26/23 01/25/23 05:37 05:36 06:15 Hct POC Hct MCHC RDW Immature Gran % (Auto) Neut % (Auto) Lymph % (Auto) Lymph # (Auto) Band Neutrophils % Lymphocytes % 10 L Immature Gran # Absolute Neutrophils RBC Morphology Abnormal A Hypochromasia Anisocytosis 1+ A POC VBG pO2 POC VBG HCO3 POC VBG Total CO2 POC Venous O2 Sat POC VBG Base Excess Sodium 146 H POC Potassium Potassium 3.1 L POC Total CO2 POC BUN BUN Creatinine 0.4 L Glucose 126 H POC Glucose Phosphorus 2.0 L Direct Bilirubin GGT 256 H AST 36 H Alkaline Phosphatase 258 H Lactate Dehydrogenase 311 H Total Protein 5.7 L Albumin 1.8 L Globulin 3.9 H Albumin/Globulin Ratio 0.5 L Procalcitonin 0.52 H Urine Appearance Urine Protein Urine Glucose (UA) Urine Ketones Urine Urobilinogen Ur Leukocyte Esterase Urine RBC Urine WBC Ur Squamous Epith Cells Urine Bacteria Hyaline Casts Urine Mucus Urine Opiates Screen Ur Amphetamines Screen 01/25/23 01/25/23 01/24/23 06:15 06:15 14:01 Hct POC Hct MCHC 29.6 L RDW 15.1 H Immature Gran % (Auto) 1.4 H Neut % (Auto) 89.9 H Lymph % (Auto) 5.2 L Lymph # (Auto) 0.40 L Band Neutrophils % Lymphocytes % Immature Gran # 0.11 H Absolute Neutrophils RBC Morphology Hypochromasia Anisocytosis POC VBG pO2 49 H POC VBG HCO3 28.4 H POC VBG Total CO2 30.0 H POC Venous O2 Sat 83.0 H POC VBG Base Excess 3.0 H Sodium POC Potassium Potassium 3.0 L POC Total CO2 POC BUN BUN Creatinine 0.3 L Glucose 126 H POC Glucose Phosphorus Direct Bilirubin GGT 295 H AST Alkaline Phosphatase 264 H Lactate Dehydrogenase 405 H Total Protein Albumin 1.9 L Globulin 4.1 H Albumin/Globulin Ratio 0.5 L Procalcitonin Urine Appearance Urine Protein Urine Glucose (UA) Urine Ketones Urine Urobilinogen Ur Leukocyte Esterase Urine RBC Urine WBC Ur Squamous Epith Cells Urine Bacteria Hyaline Casts Urine Mucus Urine Opiates Screen Ur Amphetamines Screen 01/24/23 01/24/23 01/24/23 10:00 10:00 07:36 Hct POC Hct MCHC RDW Immature Gran % (Auto) Neut % (Auto) Lymph % (Auto) Lymph # (Auto) Band Neutrophils % 17 H Lymphocytes % 5 L Immature Gran # Absolute Neutrophils RBC Morphology Abnormal A Hypochromasia 1+ A Anisocytosis POC VBG pO2 POC VBG HCO3 POC VBG Total CO2 POC Venous O2 Sat POC VBG Base Excess Sodium POC Potassium Potassium POC Total CO2 POC BUN BUN 24 H Creatinine 0.5 L Glucose 121 H POC Glucose Phosphorus Direct Bilirubin GGT AST Alkaline Phosphatase Lactate Dehydrogenase Total Protein Albumin Globulin Albumin/Globulin Ratio Procalcitonin 1.22 H Urine Appearance Urine Protein Urine Glucose (UA) Urine Ketones Urine Urobilinogen Ur Leukocyte Esterase Urine RBC Urine WBC Ur Squamous Epith Cells Urine Bacteria Hyaline Casts Urine Mucus Urine Opiates Screen Ur Amphetamines Screen 01/24/23 01/24/23 01/24/23 06:04 05:47 05:28 Hct POC Hct 49.0 H MCHC RDW Immature Gran % (Auto) Neut % (Auto) Lymph % (Auto) Lymph # (Auto) Band Neutrophils % Lymphocytes % Immature Gran # Absolute Neutrophils RBC Morphology Hypochromasia Anisocytosis POC VBG pO2 POC VBG HCO3 POC VBG Total CO2 POC Venous O2 Sat POC VBG Base Excess Sodium POC Potassium 6.8 H* Potassium POC Total CO2 31.0 H POC BUN 38 H BUN Creatinine Glucose POC Glucose 158 H Phosphorus Direct Bilirubin GGT AST Alkaline Phosphatase Lactate Dehydrogenase Total Protein Albumin Globulin Albumin/Globulin Ratio Procalcitonin Urine Appearance Cloudy A Urine Protein 100 A Urine Glucose (UA) 50 A Urine Ketones 20 A Urine Urobilinogen 2.0 A Ur Leukocyte Esterase 25 A Urine RBC 34 H Urine WBC 36 H Ur Squamous Epith Cells 5 H Urine Bacteria Many A Hyaline Casts 57 H Urine Mucus Many A Urine Opiates Screen Suspect positive A Ur Amphetamines Screen Suspect positive A 01/24/23 01/24/23 01/24/23 00:39 00:28 00:28 Hct 48.1 H POC Hct MCHC 30.8 L RDW 14.7 H Immature Gran % (Auto) 1.1 H Neut % (Auto) 94.8 H Lymph % (Auto) 1.6 L Lymph # (Auto) 0.17 L Band Neutrophils % Lymphocytes % Immature Gran # 0.11 H Absolute Neutrophils 9.79 H RBC Morphology Hypochromasia Anisocytosis POC VBG pO2 56 H POC VBG HCO3 29.8 H POC VBG Total CO2 31.0 H POC Venous O2 Sat 89.0 H POC VBG Base Excess 5.0 H* Sodium POC Potassium Potassium POC Total CO2 POC BUN BUN Creatinine Glucose POC Glucose Phosphorus Direct Bilirubin 0.3 H GGT AST Alkaline Phosphatase 148 H Lactate Dehydrogenase Total Protein Albumin 2.6 L Globulin 4.2 H Albumin/Globulin Ratio Procalcitonin Urine Appearance Urine Protein Urine Glucose (UA) Urine Ketones Urine Urobilinogen Ur Leukocyte Esterase Urine RBC Urine WBC Ur Squamous Epith Cells Urine Bacteria Hyaline Casts Urine Mucus Urine Opiates Screen Ur Amphetamines Screen 01/24/23 00:22 Hct POC Hct 53.0 H MCHC RDW Immature Gran % (Auto) Neut % (Auto) Lymph % (Auto) Lymph # (Auto) Band Neutrophils % Lymphocytes % Immature Gran # Absolute Neutrophils RBC Morphology Hypochromasia Anisocytosis POC VBG pO2 POC VBG HCO3 POC VBG Total CO2 POC Venous O2 Sat POC VBG Base Excess Sodium POC Potassium 5.7 H Potassium POC Total CO2 33.0 H POC BUN 36 H BUN Creatinine Glucose POC Glucose 200 H Phosphorus Direct Bilirubin GGT AST Alkaline Phosphatase Lactate Dehydrogenase Total Protein Albumin Globulin Albumin/Globulin Ratio Procalcitonin Urine Appearance Urine Protein Urine Glucose (UA) Urine Ketones Urine Urobilinogen Ur Leukocyte Esterase Urine RBC Urine WBC Ur Squamous Epith Cells Urine Bacteria Hyaline Casts Urine Mucus Urine Opiates Screen Ur Amphetamines Screen Meds: Medications Acetaminophen (Acetaminophen 325 Mg Tablet) 650 mg PO Q6HP PRN; Protocol PRN Reason: Per Pain Protocol/Fever > 101 Last Admin: 01/26/23 02:36 Dose: 650 mg Hydrocodone Bitart/Acetaminophen (Hydrocodone/Apap 5/325mg Tablet) 1 tab PO Q4HP PRN PRN Reason: PAIN LEVEL 3-6 Last Admin: 01/25/23 23:19 Dose: 1 tab Albuterol/Ipratropium (Ipratropium/Albuterol 3 Ml Ampul.Neb) 3 ml NEB Q4HP PRN PRN Reason: Shortness Of Breath Last Admin: 01/26/23 02:34 Dose: 3 ml Apixaban (Apixaban 5 Mg Tablet) 5 mg PO BID KAREN Last Admin: 01/25/23 20:30 Dose: 5 mg Dextrose (Dextrose 50% 50 Ml Vial) 0 ml IV UD PRN PRN Reason: Per Sliding Scale Diagnostic Test (Pha) (Accu-Chek 1 Each Strip) 1 each FS ACHS [facility] Last Admin: 01/25/23 20:30 Dose: 1 each Dicyclomine HCl (Dicyclomine 20 Mg Tablet) 20 mg PO QID PRN PRN Reason: stomach cramping Docusate Sodium (Docusate Sodium 100 Mg Capsule) 100 mg PO BID [facility] Last Admin: 01/25/23 20:30 Dose: 100 mg Enoxaparin Sodium (Enoxaparin 40 Mg/0.4 Ml Syringe) 40 mg SQ DAILY [facility] Last Admin: 01/25/23 09:32 Dose: 40 mg Escitalopram Oxalate (Escitalopram 10 Mg Tablet) 10 mg PO QDAY [facility] Last Admin: 01/25/23 09:32 Dose: 10 mg Famotidine (Famotidine 20 Mg Tablet) 20 mg PO BID [facility] Last Admin: 01/25/23 20:30 Dose: 20 mg Glucose (Dextrose 31 Gm Oral.Susp) 15 gm PO PRN PRN PRN Reason: Hypoglycemia Vancomycin HCl 1,000 mg/ (Sodium Chloride) 250 mls @ 250 mls/hr IV Q12H [facility]; Protocol Last Infusion: 01/25/23 21:30 Dose: Infused Ceftriaxone Sodium 2 gm/ (Dextrose) 50 mls @ 100 mls/hr IV Q24H [facility]; Protocol Last Infusion: 01/25/23 09:50 Dose: Infused Potassium Chloride 40 meq/ (Dextrose) 520 mls @ 130 mls/hr IV UD PRN PRN Reason: Potassium < 3 Magnesium Sulfate (Magnesium Sulfate) 2 gm in 50 mls @ 50 mls/hr IV UD PRN PRN Reason: Magnesium </= 1.6 Insulin Glargine (Insulin Glargine, Human 1 Unit/0.01 Ml) 15 unit SQ QDAY [facility] Last Admin: 01/25/23 09:31 Dose: 15 unit Insulin Human Lispro (Insulin Lispro 1 Unit/0.01 Ml Unit) 0 unit SQ ACHS [facility]; Protocol Last Admin: 01/25/23 20:29 Dose: 6 unit Labetalol HCl (Labetalol 5 Mg/Ml Ml) 0 mg IV Q2HP PRN PRN Reason: Hypertension Lisinopril (Lisinopril 20 Mg Tablet) 20 mg PO BID [facility] Last Admin: 01/25/23 20:30 Dose: 20 mg Metoprolol Succinate (Metoprolol Succinate 50 Mg Tab.Xl.24h) 50 mg PO DAILY [facility] Last Admin: 01/25/23 09:32 Dose: 50 mg Metoprolol Tartrate (Metoprolol Tartrate 5 Mg/5 Ml Vial) 5 mg IV Q2HP PRN PRN Reason: Tachyarrhythmias HR>110 Last Admin: 01/25/23 01:00 Dose: 5 mg Morphine Sulfate (Morphine 4 Mg/Ml Vial) 0 mg IV Q3HP PRN PRN Reason: Pain Last Admin: 01/26/23 02:37 Dose: 2 mg Ondansetron HCl (Ondansetron 4 Mg/2 Ml Vial) 4 mg IV Q4HP PRN PRN Reason: Nausea And Vomiting Dorzolamide-Timolol (22.3-6.8 Mg/Ml Drops) 1 dose OU BID [facility] Last Admin: 01/25/23 20:30 Dose: 1 dose Polyethylene Glycol (Polyethylene Glycol 3350 17 Gm Packet) 17 gm PO DAILYP PRN PRN Reason: Constipation Potassium Chloride (Potassium Chloride 20 Meq Tablet) 40 meq PO UD PRN PRN Reason: Potssium is 3-3.5 Potassium Chloride (Potassium Chloride 20 Meq Tablet) 40 meq PO UD PRN PRN Reason: Potassium < 3 Prednisone (Prednisone 20 Mg Tablet) 40 mg PO QDAY [facility] Last Admin: 01/25/23 09:32 Dose: 40 mg Senna (Sennosides 1 Tablet) 2 tab PO DAILYP PRN PRN Reason: Constipation Sodium Chloride (0.9 % Sodium Chloride 10 Ml Syringe) 10 ml IV Q8 [facility] Last Admin: 01/26/23 04:40 Dose: 10 ml Tramadol HCl (Tramadol 50 Mg Tablet) 100 mg PO QIDP PRN PRN Reason: Pain Trazodone HCl (Trazodone Hcl 50 Mg Tablet) 50 mg PO QHS PRN PRN Reason: insomnia Vancomycin HCl (Vancomycin Per Pharmacy) 1 order IV UD [facility] A/P Narrative A/P Narrative: A: *Emphysematous cystitis(GNB): *Bacteremia(Staph Aureus): likely entry via skin with multiple scab wounds -echo no vegetations -BC 01/25 positive *Sepsis: -tachycardia/tachypnea/bandemia *Encephalopathy: 2/2 above + meth use -improving *Hyperkalemia/Hypophos: *Volume depletion: improved *Sinus tachycardia: Patient states she is chronically tachycardic, -improving *Substance abuse: With methamphetamine and likely opioid abuse *Acute on chronic back pain: 2/2 recent fall and compression fx's *Compression Fx's of thoracic/lumbar spine *Generalized weakness/deconditioning/falling: *right middle finger swelling/pain: 2/2 fall, xray with avulsion fracture of third digit *h/o DVT's: on eliquis *COPD(3L@home): *RIKY on cpap: *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, currently on 40mg daily, continue *DM2: *HTN: *GERD: *Anxiety/Depression: prn ativan,ssri *Tobacco abuse: P: -Rocephin/Vanco pending cx's, pending BC/UC -ID consult -serial BC's -monitor renal fxn/uop/i&o -monitor potassium and other electrolytes and treat accordingly -cont acei, started BB(increase) for chronic sinus tach -cont home IH's and home O2, prn nebs -cont psych meds -Hold aldactone for now -basal and ssi -home qhs cpap -PT/OT, ST eval -Smoking & substance use cessation counseling -CM for placement -ppx: apixiban / home H2 Time Spent With Patient Time: Total time spent is greater than 50% in coordination of care (as documented) at patient's floor/unit and/or counseling patient: Subsequent: Total time with patient: 50 - 65 Minutes QUALITY VTE Deep Vein Thrombosis/Pulmonary Embolism Present on Admission: No
[2023-01-26] MEDS: INSULIN LISPRO 1 UNIT/0.01 ML UNIT SQ SCH ×4 (07:45→20:55)
[2023-01-26] MEDS: FAMOTIDINE 20 MG TABLET PO SCH ×2 (08:41→20:39)
[2023-01-26] MEDS: DOCUSATE SODIUM 100 MG CAPSULE PO SCH ×2 (08:41→20:39)
[2023-01-26] MEDS: INSULIN GLARGINE, HUMAN 1 UNIT/0.01 ML SQ SCH (08:41)
[2023-01-26] MEDS: METOPROLOL TARTRATE 50 MG TABLET PO SCH ×2 (08:41→20:39)
[2023-01-26] MEDS: Dorzolamide-Timolol 22.3-6.8 mg/mL drops OU SCH ×2 (08:41→21:17)
[2023-01-26] MEDS: APIXABAN 5 MG TABLET PO SCH ×2 (08:41→20:39)
[2023-01-26] MEDS: ESCITALOPRAM 10 MG TABLET PO SCH (08:41)
[2023-01-26] MEDS: LISINOPRIL 20 MG TABLET PO SCH ×2 (08:42→20:39)
[2023-01-26] MEDS: cefTRIAXone 2 GM in DEXTROSE 5% IN WATER 50 ML IV SCH (08:42)
[2023-01-26] MEDS: predniSONE 20 MG TABLET PO SCH (08:42)
[2023-01-26] MEDS: VANCOMYCIN 1,000 MG in 0.9 % SODIUM CHLORIDE 250 ML IV SCH (11:53)
--- NOTE | 2023-01-26 13:44 | Infectious Disease Consult ---
Telemedicine Intake Consent for assessment and treatment to occur via virtual technology obtained from: Other Location of Provider: Home Patient location: Intensive Care Unit Details: Unable to obtain consent due to patient's mental status. This is an urgent consultation HPI Date of Consult Consult Date: 01/26/23 Primary Care Provider: Thierno Leonard DO Consult Narrative Chief complaint: Altered mentation Reason for consult: Bacteremia History of present illness: 62-year-old female with history of drug abuse, decubitus ulcer of her left posterior thigh and right buttock presented to the emergency room on 01/24 with altered mental status and intractable back pain. She was found to have blood culture positive for Staph aureus on blood cultures from 01/24 and 01/25. Patient was started on ceftriaxone and ID is consulted for antibiotic management. Patient is unable to provide much per history. cc:: CC: Maxim Grover [facility] All Active Problems (Updated 01/24/23 @ 11:36 by Farhat Zhao MD) Acute low back pain due to trauma (Acute) Acute upper back pain (Acute) Acute alteration in mental status (Acute) Acute dehydration (Acute) Acute hyperkalemia (Acute) Urinary tract infection, acute (Acute) Cellulitis of right middle finger (Acute) Tachycardia (Acute) Hypoxia (Acute) Methamphetamine abuse (Acute) Emphysematous cystitis (Acute) Bacteremia (Acute) Aspiration pneumonia (Acute) Diabetic ulcer of chew (Acute) Hypoglycemia (Acute) Acute GI bleeding (Acute) Diarrhea (Acute) HSP (Hen[place] Schonlein purpura) (Chronic) COPD exacerbation (Acute) Elevated blood sugar level (Acute) Depression (Acute) Hernia (Acute) Gout (Acute) Hepatitis C (Acute) Glaucoma (Acute) Arthritis (Acute) Chronic back pain (Acute) Diverticulitis (Acute) Anxiety (Acute) Type 2 diabetes mellitus (Chronic) IBS (irritable bowel syndrome) (Acute) HTN (hypertension) (Acute) COPD (chronic obstructive pulmonary disease) (Acute) Medical History Anxiety Arthritis Chronic back pain COPD (chronic obstructive pulmonary disease) COPD exacerbation Depression recent loss of son Diverticulitis Elevated blood sugar level Glaucoma Gout Hepatitis C Hernia HTN (hypertension) IBS (irritable bowel syndrome) Type 2 diabetes mellitus Surgical History History of colostomy (~2013) History of colostomy reversal (~2015) History of eye surgery (~2015) History of tubal ligation (~1992) Family History Sister Cancer High blood pressure Father Cancer Diabetes High blood pressure Mother Diabetes High blood pressure Grandfather High blood pressure Social History marital status: occupational status: disabled smoking status: Current every day smoker alcohol intake frequency: a few times a week substance use type: does not use MEDS/ALLERGIES Home Medications and Allergies Home Medications Medication Instructions Recorded Confirmed Type Oxygen 3LPM QHS #1 ea 02/02/22 01/25/23 Rx lancets (OneTouch UltraSoft #100 ea 03/25/22 01/25/23 Rx Lancets) CPAP mask and supplies #1 ea 04/20/22 01/25/23 Rx blood sugar diagnostic (OneTouch #200 ea 05/10/22 01/25/23 Rx Ultra Test strips) incontinence pad, liner, disp #120 ea 05/10/22 01/25/23 Rx compression socks, large #2 ea 05/13/22 01/25/23 Rx sitagliptin phosphate 25 mg tablet 25 mg PO QAM #90 tabs 05/13/22 01/25/23 Rx (Januvia) pen needle, diabetic 31 gauge x #200 ea 05/24/22 01/25/23 Rx 3/16" (1st Tier Unifine Pentips) trazodone 50 mg tablet 50 mg PO QHS PRN insomnia #90 tabs 08/16/22 01/25/23 Rx dicyclomine 20 mg tablet 20 mg PO QID PRN stomach cramping 08/17/22 01/25/23 Rx #120 tabs insulin syringe-needle U-100 1 mL #500 ea 10/12/22 01/25/23 Rx 27 gauge x 1/2" (BD Insulin Syringe) spironolactone 25 mg tablet 25 mg PO QDAY #90 tabs 10/12/22 01/25/23 Rx albuterol sulfate 90 mcg/actuation 1 - 2 puff inhalation Q6H PRN 11/01/22 01/25/23 Rx aerosol inhaler (Ventolin HFA) shortness of breath or wheezing #8.5 grams amlodipine 10 mg tablet 10 mg PO QDAY #90 tabs 12/06/22 01/25/23 Rx insulin aspart U-100 100 unit/mL 10 unit subcut TID 12/22/22 01/25/23 History (3 mL) subcutaneous pen insulin glargine 100 unit/mL (3 15 unit subcut QDAY 12/22/22 01/25/23 History mL) subcutaneous pen escitalopram oxalate 10 mg tablet 10 mg PO QDAY #30 tabs 01/02/23 01/25/23 Rx buspirone 5 mg tablet 5 mg PO BID #180 tabs 01/09/23 01/25/23 Rx famotidine 20 mg tablet 20 mg PO BID #180 tabs 01/09/23 01/25/23 Rx prednisone 20 mg tablet 40 mg PO QDAY #180 tabs 01/09/23 01/25/23 Rx tramadol 50 mg tablet 100 mg PO QID PRN pain 30 days 01/20/23 01/25/23 Rx #240 tabs lisinopril 40 mg tablet 40 mg PO BID 01/24/23 01/25/23 History apixaban 5 mg tablet (Eliquis) 5 mg PO BID 01/25/23 01/25/23 History dorzolamide 22.3 mg-timolol 6.8 1 drp ophthalmic (eye) BID 01/25/23 01/25/23 History mg/mL eye drops insulin aspart U-100 100 unit/mL 6 unit subcut TID 01/25/23 01/25/23 History (3 mL) subcutaneous pen (Novolog FlexPen U-100 Insulin aspart) simethicone 125 mg chewable tablet 250 mg PO BIDP PRN abdominal pain 01/25/23 01/25/23 History (Gas Relief Extra Strength) Allergies Allergy/AdvReac Type Severity Reaction Status Date / Time glipizide AdvReac Intermediate Dizziness Verified 01/26/23 07:42 Physical Examination Vital Signs Vital signs: Temp Pulse Resp BP Pulse Ox O2 Del Method O2 Flow Rate 97.7 F 104 H 21 121/77 93 Nasal Cannula 3 01/26/23 12:00 01/26/23 12:00 01/26/23 12:00 01/26/23 12:00 01/26/23 12:00 01/26/23 12:00 01/26/23 12:00 Constitutional General appearance: alert and other (Patient is only moaning and not answering questions. Obese) Extremities Extremities: other (Stage III ulcer of the left thigh without any drainage or necrosis. Stage II decubitus ulcer of the right buttock) Results Laboratory Findings 01/25/23 06:15 01/26/23 05:36 Abnormal lab findings: Abnormal Labs 01/24/23 01/24/23 01/24/23 00:22 00:28 00:28 Hct 48.1 H POC Hct 53.0 H MCHC 30.8 L RDW 14.7 H Immature Gran % (Auto) 1.1 H Neut % (Auto) 94.8 H Lymph % (Auto) 1.6 L Lymph # (Auto) 0.17 L Band Neutrophils % Lymphocytes % Immature Gran # 0.11 H Absolute Neutrophils 9.79 H RBC Morphology Hypochromasia Anisocytosis POC VBG pO2 POC VBG HCO3 POC VBG Total CO2 POC Venous O2 Sat POC VBG Base Excess Sodium POC Potassium 5.7 H Potassium POC Total CO2 33.0 H POC BUN 36 H BUN Creatinine Glucose POC Glucose 200 H Phosphorus Direct Bilirubin 0.3 H GGT AST Alkaline Phosphatase 148 H Lactate Dehydrogenase Total Protein Albumin 2.6 L Globulin 4.2 H Albumin/Globulin Ratio Procalcitonin Urine Appearance Urine Protein Urine Glucose (UA) Urine Ketones Urine Urobilinogen Ur Leukocyte Esterase Urine RBC Urine WBC Ur Squamous Epith Cells Urine Bacteria Hyaline Casts Urine Mucus Urine Opiates Screen Ur Amphetamines Screen 01/24/23 01/24/23 01/24/23 00:39 05:28 05:47 Hct POC Hct 49.0 H MCHC RDW Immature Gran % (Auto) Neut % (Auto) Lymph % (Auto) Lymph # (Auto) Band Neutrophils % Lymphocytes % Immature Gran # Absolute Neutrophils RBC Morphology Hypochromasia Anisocytosis POC VBG pO2 56 H POC VBG HCO3 29.8 H POC VBG Total CO2 31.0 H POC Venous O2 Sat 89.0 H POC VBG Base Excess 5.0 H* Sodium POC Potassium 6.8 H* Potassium POC Total CO2 31.0 H POC BUN 38 H BUN Creatinine Glucose POC Glucose 158 H Phosphorus Direct Bilirubin GGT AST Alkaline Phosphatase Lactate Dehydrogenase Total Protein Albumin Globulin Albumin/Globulin Ratio Procalcitonin Urine Appearance Cloudy A Urine Protein 100 A Urine Glucose (UA) 50 A Urine Ketones 20 A Urine Urobilinogen 2.0 A Ur Leukocyte Esterase 25 A Urine RBC 34 H Urine WBC 36 H Ur Squamous Epith Cells 5 H Urine Bacteria Many A Hyaline Casts 57 H Urine Mucus Many A Urine Opiates Screen Ur Amphetamines Screen 01/24/23 01/24/23 01/24/23 06:04 07:36 10:00 Hct POC Hct MCHC RDW Immature Gran % (Auto) Neut % (Auto) Lymph % (Auto) Lymph # (Auto) Band Neutrophils % 17 H Lymphocytes % 5 L Immature Gran # Absolute Neutrophils RBC Morphology Abnormal A Hypochromasia 1+ A Anisocytosis POC VBG pO2 POC VBG HCO3 POC VBG Total CO2 POC Venous O2 Sat POC VBG Base Excess Sodium POC Potassium Potassium POC Total CO2 POC BUN BUN 24 H Creatinine 0.5 L Glucose 121 H POC Glucose Phosphorus Direct Bilirubin GGT AST Alkaline Phosphatase Lactate Dehydrogenase Total Protein Albumin Globulin Albumin/Globulin Ratio Procalcitonin Urine Appearance Urine Protein Urine Glucose (UA) Urine Ketones Urine Urobilinogen Ur Leukocyte Esterase Urine RBC Urine WBC Ur Squamous Epith Cells Urine Bacteria Hyaline Casts Urine Mucus Urine Opiates Screen Suspect positive A Ur Amphetamines Screen Suspect positive A 01/24/23 01/24/23 01/25/23 10:00 14:01 06:15 Hct POC Hct MCHC 29.6 L RDW 15.1 H Immature Gran % (Auto) 1.4 H Neut % (Auto) 89.9 H Lymph % (Auto) 5.2 L Lymph # (Auto) 0.40 L Band Neutrophils % Lymphocytes % Immature Gran # 0.11 H Absolute Neutrophils RBC Morphology Hypochromasia Anisocytosis POC VBG pO2 49 H POC VBG HCO3 28.4 H POC VBG Total CO2 30.0 H POC Venous O2 Sat 83.0 H POC VBG Base Excess 3.0 H Sodium POC Potassium Potassium POC Total CO2 POC BUN BUN Creatinine Glucose POC Glucose Phosphorus Direct Bilirubin GGT AST Alkaline Phosphatase Lactate Dehydrogenase Total Protein Albumin Globulin Albumin/Globulin Ratio Procalcitonin 1.22 H Urine Appearance Urine Protein Urine Glucose (UA) Urine Ketones Urine Urobilinogen Ur Leukocyte Esterase Urine RBC Urine WBC Ur Squamous Epith Cells Urine Bacteria Hyaline Casts Urine Mucus Urine Opiates Screen Ur Amphetamines Screen 01/25/23 01/25/23 01/26/23 06:15 06:15 05:36 Hct POC Hct MCHC RDW Immature Gran % (Auto) Neut % (Auto) Lymph % (Auto) Lymph # (Auto) Band Neutrophils % Lymphocytes % 10 L Immature Gran # Absolute Neutrophils RBC Morphology Abnormal A Hypochromasia Anisocytosis 1+ A POC VBG pO2 POC VBG HCO3 POC VBG Total CO2 POC Venous O2 Sat POC VBG Base Excess Sodium 146 H POC Potassium Potassium 3.0 L 3.1 L POC Total CO2 POC BUN BUN Creatinine 0.3 L 0.4 L Glucose 126 H 126 H POC Glucose Phosphorus 2.0 L Direct Bilirubin GGT 295 H 256 H AST 36 H Alkaline Phosphatase 264 H 258 H Lactate Dehydrogenase 405 H 311 H Total Protein 5.7 L Albumin 1.9 L 1.8 L Globulin 4.1 H 3.9 H Albumin/Globulin Ratio 0.5 L 0.5 L Procalcitonin Urine Appearance Urine Protein Urine Glucose (UA) Urine Ketones Urine Urobilinogen Ur Leukocyte Esterase Urine RBC Urine WBC Ur Squamous Epith Cells Urine Bacteria Hyaline Casts Urine Mucus Urine Opiates Screen Ur Amphetamines Screen 01/26/23 05:37 Hct POC Hct MCHC RDW Immature Gran % (Auto) Neut % (Auto) Lymph % (Auto) Lymph # (Auto) Band Neutrophils % Lymphocytes % Immature Gran # Absolute Neutrophils RBC Morphology Hypochromasia Anisocytosis POC VBG pO2 POC VBG HCO3 POC VBG Total CO2 POC Venous O2 Sat POC VBG Base Excess Sodium POC Potassium Potassium POC Total CO2 POC BUN BUN Creatinine Glucose POC Glucose Phosphorus Direct Bilirubin GGT AST Alkaline Phosphatase Lactate Dehydrogenase Total Protein Albumin Globulin Albumin/Globulin Ratio Procalcitonin 0.52 H Urine Appearance Urine Protein Urine Glucose (UA) Urine Ketones Urine Urobilinogen Ur Leukocyte Esterase Urine RBC Urine WBC Ur Squamous Epith Cells Urine Bacteria Hyaline Casts Urine Mucus Urine Opiates Screen Ur Amphetamines Screen Microbiology: Microbiology 01/24/23 14:21 Urine - Catheterized Urine Culture - Preliminary Escherichia coli 01/24/23 00:28 Blood Blood Culture - Final Staphylococcus aureus 01/24/23 00:34 Blood Blood Culture - Final Staphylococcus aureus 01/25/23 06:30 Blood Blood Culture - Preliminary Gram positive cocci 01/25/23 06:24 Blood Blood Culture - Preliminary Gram positive cocci A/P Sepsis Sepsis Identified: Yes Time Zero: 321 Narrative A/P Narrative: Patient with sepsis due to MSSA bacteremia. Unclear source of infection. Cystitis may be a consideration. However patient has not had instrumentation. We will need to rule out endocarditis and osteomyelitis of the vertebra. emphysematous cystitis. Unfortunately there is no urine culture. We will send for urine culture Change ceftriaxone to cefepime pending urine culture. If urine culture is negative, then can use cefazolin 2 g IV every 8 Awaiting echocardiogram Patient will need MRI of the thoracic and lumbar spine if TTE negative, would need GALLO. Time Spent With Patient Time: Total time spent is greater than 50% in coordination of care (as documented) at patient's floor/unit and/or counseling patient:
[2023-01-26] MEDS: ceFAZolin 1 GM VIAL IV SCH ×2 (14:22→21:17)
[2023-01-26] MEDS: CIPROFLOXACIN 400 MG/200 ML BAG IV SCH ×2 (14:23→22:37)
[2023-01-26] MEDS: HYDROcodone/APAP 5/325MG TABLET PO PRN (20:40)
--- NOTE | 2023-01-26 21:23 | Internal Med Progress Note ---
SUBJECTIVE Subjective Patient information: Note initiated : 01/26/23 at 9:22 pm Service Date, if different from initiated Date: [] Patient: Elizabeth Verduzco a 62 y/o F admitted on 01/24/23 for back pain. Chief Complaint: [] Additional PMFSH (Level 3 Only): Ms. Verduzco is a 62 year old female with history of drug abuse, COPD, chronic hypoxic respiratory failure requiring 3 L nasal cannula oxygen, decubitus ulcer of left posterior thigh and right buttock presented to ER on 01/24 with altered mental status, intractable back pain. Patient states she ran out of her pain medication and her PCP would not refill it early. She has had multiple falls resulting in compression fractures of her spine. She fell recently onto family members coffee table and also injured her right finger middle finger. Urine and imaging of the bladder findings concerning for emphysematous cystitis. She was hyperkalemic at 5.7 which increased to 6.8 and finally dropped to 3.4 this morning. UDS of course was positive for methamphetamine. It also was positive for opi oids for she has no prescriptions. 01/27 Patient is found to have MSSA bacteremia on blood cultures from 01/24 and 01/25. Blood cultures from 01/27 pending. Patient had been receiving ceftriaxone before. ID note reviewed. Detailed discussion with ID. Unclear source of infection. Cystitis may be a consideration however patient has had no instrumentation. 2D echocardiogram without evidence of endocarditis. Urine culture positive for E. coli, yesterday antibiotic was changed to ciprofloxacin from ceftriaxone. Today patient is very confused, she is agitated. MRI spine has been ordered however patient is not able to tolerate it with this altered mental status. If her blood cultures remains positive will need transesophageal echocardiogram to rule out endocarditis, ID agrees. Review of Systems: Pertinent positives as above. Denies headache/fever/chills//vomiting/chest or abdominal pain/cough/dyspnea/diarrhea. Patient is also altered mental status and review of system is unreliable PHYSICAL EXAM General: Alert, awake, confused and encephalopathic but in no acute distress Eyes/N/T: EOMI, no scleral icterus, Head/Neck: neck supple, full ROM, CV: Tachycardic and regular and rate improving, No murmurs, Pulm: fine rales b/l, no wheezing, no respiratory distress Abd: soft, nontender, +BS x4 Ext: no clubbing/cyanosis, mild b/l LE edema Neuro: Alert, confused, moving limbs, no focal deficits Psychiatric: Does not appear depressed Skin: warm/dry, Multiple small scabbed wounds Assessment and plan *Emphysematous cystitis(GNB): *Bacteremia(Staph Aureus): likely entry via skin with multiple scab wounds, if remains bacteremic will need to rule out endocarditis with GALLO. Lumbar and thoracic MRI ordered however patient is confused and cannot tolerate it. -2D echo no vegetations -BC 01/25 positive, blood cultures from 01/27 pending ID recommendations appreciated. Antibiotics changed to cefepime since patient is confused *Sepsis: -tachycardia/tachypnea/bandemia *Encephalopathy: 2/2 above + meth use -improving *Hyperkalemia/Hypophos: *Volume depletion: improved *Sinus tachycardia: Patient states she is chronically tachycardic, -improving *Substance abuse: With methamphetamine and likely opioid abuse *Acute on chronic back pain: 2/2 recent fall and compression fx's *Compression Fx's of thoracic/lumbar spine. MRI lumbar and thoracic spine ordered however patient is confused and cannot tolerated. *Generalized weakness/deconditioning/falling: *right middle finger swelling/pain: 2/2 fall, xray with avulsion fracture of third digit *h/o DVT's: on eliquis *COPD(3L@home): *RIKY on cpap: *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, currently on 40mg daily, continue *DM2: *HTN: *GERD: *Anxiety/Depression: prn ativan,ssri *Tobacco abuse: Counseled on smoking cessation Encephalopathy, could be metabolic versus drug-induced. Discontinue ciprofloxacin Assessment and plan -Discontinue ciprofloxacin due to confusion antibiotic changed to cefepime. Vancomycin has been discontinued. Cefepime will cover for bacteremia and also for UTI. -ID consult appreciated -serial BC's -monitor renal fxn/uop/i&o -monitor potassium and other electrolytes and treat accordingly -cont acei, started BB(increase) for chronic sinus tach -cont home IH's and home O2, prn nebs -cont psych meds -Hold aldactone for now -basal and ssi -home qhs cpap -PT/OT, ST eval -Smoking & substance use cessation counseling -CM for placement -ppx: apixiban / home H2 Portions of this chart may have been created with [employer] voice recognition software. Occasional wrong-word or sound-like substitutions may have occurred due to the inherent limitations of voice recognition software. Please read the chart carefully and recognize, using context, where the substitutions have occurred. Constitutional Vitals: Vital Signs Temp Pulse Resp BP Pulse Ox O2 Del Method O2 Flow Rate 97.9 F 108 H 18 139/87 91 Nasal Cannula 3 01/26/23 19:51 01/26/23 19:51 01/26/23 19:51 01/26/23 19:51 01/26/23 19:51 01/26/23 19:51 01/26/23 19:51 Period Temp Pulse Resp BP Sys/Moffett Pulse Ox O2 Del Method O2 Flow Rate Last 24 Hr 96.7 F-98.2 F 100-117 14-24 121-145/77-106 91-96 Nasal Cannula-Room Air 3-3 Intake and Output 01/26/23 01/26/23 01/27/23 11:59 19:59 03:59 Intake Total 856 943.3316 Output Total 2 2 Balance 620 667.7540 Intake & Output: Intake & Output 01/26/23 01/26/23 01/27/23 11:59 19:59 03:59 Intake Total 434 990.7185 Output Total 2 2 Balance 209 668.9950 Intake: Nourishment/Supplement quantity 240 (ml) IV 50 709.0909 Potassium Phosphate 40 Meq In 509.0909 Dextrose 5% in Water 500 ml @ 127.273 mls/hr IV ONCE ONE Rx#: [id number] Rocephin 2 gm In Dextrose 5% in 50 Water 50 ml @ 100 mls/hr IV Q24H [facility] Rx#:[id number] Oral 200 Output: # of times incontinent of urine 2 2 Other: Meal Breakfast Percent of Meal Consumed 25% Feeding Ability Total Assistance Nourishment/Supplement name Ripton OBJ DATA Labs 01/25/23 06:15 01/26/23 05:36 Labs: Abnormal Lab Results 01/26/23 01/26/23 01/25/23 05:37 05:36 06:15 Hct POC Hct MCHC RDW Immature Gran % (Auto) Neut % (Auto) Lymph % (Auto) Lymph # (Auto) Band Neutrophils % Lymphocytes % 10 L Immature Gran # Absolute Neutrophils RBC Morphology Abnormal A Hypochromasia Anisocytosis 1+ A POC VBG pO2 POC VBG HCO3 POC VBG Total CO2 POC Venous O2 Sat POC VBG Base Excess Sodium 146 H POC Potassium Potassium 3.1 L POC Total CO2 POC BUN BUN Creatinine 0.4 L Glucose 126 H POC Glucose Phosphorus 2.0 L Direct Bilirubin GGT 256 H AST 36 H Alkaline Phosphatase 258 H Lactate Dehydrogenase 311 H Total Protein 5.7 L Albumin 1.8 L Globulin 3.9 H Albumin/Globulin Ratio 0.5 L Procalcitonin 0.52 H Urine Appearance Urine Protein Urine Glucose (UA) Urine Ketones Urine Urobilinogen Ur Leukocyte Esterase Urine RBC Urine WBC Ur Squamous Epith Cells Urine Bacteria Hyaline Casts Urine Mucus Urine Opiates Screen Ur Amphetamines Screen 01/25/23 01/25/23 01/24/23 06:15 06:15 14:01 Hct POC Hct MCHC 29.6 L RDW 15.1 H Immature Gran % (Auto) 1.4 H Neut % (Auto) 89.9 H Lymph % (Auto) 5.2 L Lymph # (Auto) 0.40 L Band Neutrophils % Lymphocytes % Immature Gran # 0.11 H Absolute Neutrophils RBC Morphology Hypochromasia Anisocytosis POC VBG pO2 49 H POC VBG HCO3 28.4 H POC VBG Total CO2 30.0 H POC Venous O2 Sat 83.0 H POC VBG Base Excess 3.0 H Sodium POC Potassium Potassium 3.0 L POC Total CO2 POC BUN BUN Creatinine 0.3 L Glucose 126 H POC Glucose Phosphorus Direct Bilirubin GGT 295 H AST Alkaline Phosphatase 264 H Lactate Dehydrogenase 405 H Total Protein Albumin 1.9 L Globulin 4.1 H Albumin/Globulin Ratio 0.5 L Procalcitonin Urine Appearance Urine Protein Urine Glucose (UA) Urine Ketones Urine Urobilinogen Ur Leukocyte Esterase Urine RBC Urine WBC Ur Squamous Epith Cells Urine Bacteria Hyaline Casts Urine Mucus Urine Opiates Screen Ur Amphetamines Screen 01/24/23 01/24/23 01/24/23 10:00 10:00 07:36 Hct POC Hct MCHC RDW Immature Gran % (Auto) Neut % (Auto) Lymph % (Auto) Lymph # (Auto) Band Neutrophils % 17 H Lymphocytes % 5 L Immature Gran # Absolute Neutrophils RBC Morphology Abnormal A Hypochromasia 1+ A Anisocytosis POC VBG pO2 POC VBG HCO3 POC VBG Total CO2 POC Venous O2 Sat POC VBG Base Excess Sodium POC Potassium Potassium POC Total CO2 POC BUN BUN 24 H Creatinine 0.5 L Glucose 121 H POC Glucose Phosphorus Direct Bilirubin GGT AST Alkaline Phosphatase Lactate Dehydrogenase Total Protein Albumin Globulin Albumin/Globulin Ratio Procalcitonin 1.22 H Urine Appearance Urine Protein Urine Glucose (UA) Urine Ketones Urine Urobilinogen Ur Leukocyte Esterase Urine RBC Urine WBC Ur Squamous Epith Cells Urine Bacteria Hyaline Casts Urine Mucus Urine Opiates Screen Ur Amphetamines Screen 01/24/23 01/24/23 01/24/23 06:04 05:47 05:28 Hct POC Hct 49.0 H MCHC RDW Immature Gran % (Auto) Neut % (Auto) Lymph % (Auto) Lymph # (Auto) Band Neutrophils % Lymphocytes % Immature Gran # Absolute Neutrophils RBC Morphology Hypochromasia Anisocytosis POC VBG pO2 POC VBG HCO3 POC VBG Total CO2 POC Venous O2 Sat POC VBG Base Excess Sodium POC Potassium 6.8 H* Potassium POC Total CO2 31.0 H POC BUN 38 H BUN Creatinine Glucose POC Glucose 158 H Phosphorus Direct Bilirubin GGT AST Alkaline Phosphatase Lactate Dehydrogenase Total Protein Albumin Globulin Albumin/Globulin Ratio Procalcitonin Urine Appearance Cloudy A Urine Protein 100 A Urine Glucose (UA) 50 A Urine Ketones 20 A Urine Urobilinogen 2.0 A Ur Leukocyte Esterase 25 A Urine RBC 34 H Urine WBC 36 H Ur Squamous Epith Cells 5 H Urine Bacteria Many A Hyaline Casts 57 H Urine Mucus Many A Urine Opiates Screen Suspect positive A Ur Amphetamines Screen Suspect positive A 01/24/23 01/24/23 01/24/23 00:39 00:28 00:28 Hct 48.1 H POC Hct MCHC 30.8 L RDW 14.7 H Immature Gran % (Auto) 1.1 H Neut % (Auto) 94.8 H Lymph % (Auto) 1.6 L Lymph # (Auto) 0.17 L Band Neutrophils % Lymphocytes % Immature Gran # 0.11 H Absolute Neutrophils 9.79 H RBC Morphology Hypochromasia Anisocytosis POC VBG pO2 56 H POC VBG HCO3 29.8 H POC VBG Total CO2 31.0 H POC Venous O2 Sat 89.0 H POC VBG Base Excess 5.0 H* Sodium POC Potassium Potassium POC Total CO2 POC BUN BUN Creatinine Glucose POC Glucose Phosphorus Direct Bilirubin 0.3 H GGT AST Alkaline Phosphatase 148 H Lactate Dehydrogenase Total Protein Albumin 2.6 L Globulin 4.2 H Albumin/Globulin Ratio Procalcitonin Urine Appearance Urine Protein Urine Glucose (UA) Urine Ketones Urine Urobilinogen Ur Leukocyte Esterase Urine RBC Urine WBC Ur Squamous Epith Cells Urine Bacteria Hyaline Casts Urine Mucus Urine Opiates Screen Ur Amphetamines Screen 01/24/23 00:22 Hct POC Hct 53.0 H MCHC RDW Immature Gran % (Auto) Neut % (Auto) Lymph % (Auto) Lymph # (Auto) Band Neutrophils % Lymphocytes % Immature Gran # Absolute Neutrophils RBC Morphology Hypochromasia Anisocytosis POC VBG pO2 POC VBG HCO3 POC VBG Total CO2 POC Venous O2 Sat POC VBG Base Excess Sodium POC Potassium 5.7 H Potassium POC Total CO2 33.0 H POC BUN 36 H BUN Creatinine Glucose POC Glucose 200 H Phosphorus Direct Bilirubin GGT AST Alkaline Phosphatase Lactate Dehydrogenase Total Protein Albumin Globulin Albumin/Globulin Ratio Procalcitonin Urine Appearance Urine Protein Urine Glucose (UA) Urine Ketones Urine Urobilinogen Ur Leukocyte Esterase Urine RBC Urine WBC Ur Squamous Epith Cells Urine Bacteria Hyaline Casts Urine Mucus Urine Opiates Screen Ur Amphetamines Screen Meds: Medications Acetaminophen (Acetaminophen 325 Mg Tablet) 650 mg PO Q6HP PRN; Protocol PRN Reason: Per Pain Protocol/Fever > 101 Last Admin: 01/26/23 02:36 Dose: 650 mg Hydrocodone Bitart/Acetaminophen (Hydrocodone/Apap 5/325mg Tablet) 1 tab PO Q4HP PRN PRN Reason: PAIN LEVEL 3-6 Last Admin: 01/26/23 20:40 Dose: 1 tab Albuterol/Ipratropium (Ipratropium/Albuterol 3 Ml Ampul.Neb) 3 ml NEB Q4HP PRN PRN Reason: Shortness Of Breath Last Admin: 01/26/23 02:34 Dose: 3 ml Apixaban (Apixaban 5 Mg Tablet) 5 mg PO BID KAREN Last Admin: 01/26/23 20:39 Dose: 5 mg Cefazolin Sodium (Cefazolin 1 Gm Vial) 2 gm IV Q8H KAREN; Protocol Last Admin: 01/26/23 21:17 Dose: 2 gm Dextrose (Dextrose 50% 50 Ml Vial) 0 ml IV UD PRN PRN Reason: Per Sliding Scale Diagnostic Test (Pha) (Accu-Chek 1 Each Strip) 1 each FS ACHS KAREN Last Admin: 01/26/23 20:55 Dose: 1 each Dicyclomine HCl (Dicyclomine 20 Mg Tablet) 20 mg PO QID PRN PRN Reason: stomach cramping Docusate Sodium (Docusate Sodium 100 Mg Capsule) 100 mg PO BID [facility] Last Admin: 01/26/23 20:39 Dose: 100 mg Escitalopram Oxalate (Escitalopram 10 Mg Tablet) 10 mg PO QDAY [facility] Last Admin: 01/26/23 08:41 Dose: 10 mg Famotidine (Famotidine 20 Mg Tablet) 20 mg PO BID [facility] Last Admin: 01/26/23 20:39 Dose: 20 mg Glucose (Dextrose 31 Gm Oral.Susp) 15 gm PO PRN PRN PRN Reason: Hypoglycemia Potassium Chloride 40 meq/ (Dextrose) 520 mls @ 130 mls/hr IV UD PRN PRN Reason: Potassium < 3 Magnesium Sulfate (Magnesium Sulfate) 2 gm in 50 mls @ 50 mls/hr IV UD PRN PRN Reason: Magnesium </= 1.6 Ciprofloxacin (Cipro) 400 mg in 200 mls @ 200 mls/hr IV Q12H [facility]; Protocol Last Infusion: 01/26/23 15:33 Dose: Infused Insulin Glargine (Insulin Glargine, Human 1 Unit/0.01 Ml) 15 unit SQ QDAY [facility] Last Admin: 01/26/23 08:41 Dose: 15 unit Insulin Human Lispro (Insulin Lispro 1 Unit/0.01 Ml Unit) 0 unit SQ [facility]; Protocol Last Admin: 01/26/23 20:55 Dose: Not Given Labetalol HCl (Labetalol 5 Mg/Ml Ml) 0 mg IV Q2HP PRN PRN Reason: Hypertension Lisinopril (Lisinopril 20 Mg Tablet) 20 mg PO BID [facility] Last Admin: 01/26/23 20:39 Dose: 20 mg Metoprolol Tartrate (Metoprolol Tartrate 5 Mg/5 Ml Vial) 5 mg IV Q2HP PRN PRN Reason: Tachyarrhythmias HR>110 Last Admin: 01/25/23 01:00 Dose: 5 mg Metoprolol Tartrate (Metoprolol Tartrate 50 Mg Tablet) 50 mg PO BID [facility] Last Admin: 01/26/23 20:39 Dose: 50 mg Morphine Sulfate (Morphine 4 Mg/Ml Vial) 0 mg IV Q3HP PRN PRN Reason: Pain Last Admin: 01/26/23 12:39 Dose: 2 mg Ondansetron HCl (Ondansetron 4 Mg/2 Ml Vial) 4 mg IV Q4HP PRN PRN Reason: Nausea And Vomiting Last Admin: 01/26/23 09:37 Dose: 4 mg Dorzolamide-Timolol (22.3-6.8 Mg/Ml Drops) 1 dose OU BID [facility] Last Admin: 01/26/23 21:17 Dose: 1 dose Polyethylene Glycol (Polyethylene Glycol 3350 17 Gm Packet) 17 gm PO DAILYP PRN PRN Reason: Constipation Potassium Chloride (Potassium Chloride 20 Meq Tablet) 40 meq PO UD PRN PRN Reason: Potssium is 3-3.5 Potassium Chloride (Potassium Chloride 20 Meq Tablet) 40 meq PO UD PRN PRN Reason: Potassium < 3 Prednisone (Prednisone 20 Mg Tablet) 40 mg PO QDAY [facility] Last Admin: 01/26/23 08:42 Dose: 40 mg Senna (Sennosides 1 Tablet) 2 tab PO DAILYP PRN PRN Reason: Constipation Sodium Chloride (0.9 % Sodium Chloride 10 Ml Syringe) 10 ml IV Q8 [facility] Last Admin: 01/26/23 21:19 Dose: 10 ml Tramadol HCl (Tramadol 50 Mg Tablet) 100 mg PO QIDP PRN PRN Reason: Pain Trazodone HCl (Trazodone Hcl 50 Mg Tablet) 50 mg PO QHS PRN PRN Reason: insomnia A/P Time Spent With Patient Time: Total time spent is greater than 50% in coordination of care (as documented) at patient's floor/unit and/or counseling patient: Initial: Total time with patient: 55 - 74 minutes QUALITY VTE Deep Vein Thrombosis/Pulmonary Embolism Present on Admission: No
[2023-01-27] MEDS: INSULIN LISPRO 1 UNIT/0.01 ML UNIT SQ SCH ×5 (07:39→22:36)
[2023-01-27] MEDS: ceFAZolin 1 GM VIAL IV SCH (07:43)
[2023-01-27] MEDS: 0.9 % SODIUM CHLORIDE 10 ML SYRINGE IV SCH ×3 (07:43→22:07)
[2023-01-27 08:03] LABS: ALT/SGPT 50 U/L (<40); AST/SGOT 67 U/L (<32); Albumin 1.9 gm/dL (3.2-5.2); Albumin/Globulin Ratio 0.5 (1.0-2.3); Alkaline Phosphatase 401 U/L (39-117); Bilirubin,Direct < 0.2 mg/dL (0-0.3); Bilirubin,Total 0.2 mg/dL (0.1-1.0); Blood Urea Nitrogen 15 mg/dL (8-23); Calcium 9.9 mg/dL (8.6-10.4); Carbon Dioxide 37 mmol/L (22-30); Chloride 102 mmol/L (96-108); Glomerular Filtration Rate 111; Glucose 196 mg/dL (70-105); Lactate Dehydrogenase 356 U/L (135-225); Phosphorous 2.7 mg/dL (2.5-4.5); Triglycerides 130 mg/dL (<150)
[2023-01-27] MEDS: METOPROLOL TARTRATE 5 MG/5 ML VIAL IV PRN (08:52)
[2023-01-27] MEDS: FAMOTIDINE 20 MG TABLET PO SCH ×2 (09:07→22:08)
[2023-01-27] MEDS: predniSONE 20 MG TABLET PO SCH (09:07)
[2023-01-27] MEDS: ESCITALOPRAM 10 MG TABLET PO SCH (09:08)
[2023-01-27] MEDS: INSULIN GLARGINE, HUMAN 1 UNIT/0.01 ML SQ SCH (09:08)
[2023-01-27] MEDS: APIXABAN 5 MG TABLET PO SCH ×2 (09:08→22:09)
[2023-01-27] MEDS: DOCUSATE SODIUM 100 MG CAPSULE PO SCH ×2 (09:08→22:09)
[2023-01-27] MEDS: METOPROLOL TARTRATE 50 MG TABLET PO SCH ×2 (09:08→22:08)
[2023-01-27] MEDS: LISINOPRIL 20 MG TABLET PO SCH ×2 (09:08→22:08)
[2023-01-27] MEDS: Dorzolamide-Timolol 22.3-6.8 mg/mL drops OU SCH ×2 (09:08→22:19)
[2023-01-27] MEDS: morphine 4 MG/ML VIAL IV PRN (09:25)
[2023-01-27] MEDS: CIPROFLOXACIN 400 MG/200 ML BAG IV SCH (09:40)
--- NOTE | 2023-01-27 10:25 | EKG ---
[facility] Test Date: 2023-01-24 Pat Name: Elizabeth Verduzco Department: ED Room: Gender: Female Help Desk Representative: : 1960 Requested By: Jason Espinoza Order Number: [id number] Reading MD: Thierno Nguyen M.D. Measurements Intervals [place] Rate: 118 P: 93 [place]: 160 QRS: 57 QRSD: 97 T: 75 QT: 321 QTc: 450 Interpretive Statements Sinus tachycardia Low voltage, precordial leads Electronically Signed On 01-27-2023 10:25:30 PDT by Thierno Nguyen M.D. /[id number]
[2023-01-27] MEDS ORDERED: LORazepam 2 MG/ML VIAL IV SCH (10:30)
--- NOTE | 2023-01-27 10:40 | EKG ---
[facility] Test Date: 2023-01-24 Pat Name: Elizabeth Verduzco Department: ED Room: Gender: Female Assessment Nurse Practitioner: [place] : 1960 Requested By: Maxim Grover Order Number: [id number] Reading MD: Thierno Nguyen M.D. Measurements Intervals [place] Rate: 139 P: 84 [place]: 133 QRS: 26 QRSD: 93 T: 132 QT: 277 QTc: 421 Interpretive Statements Sinus tachycardia Borderline repolarization abnormality Electronically Signed On 01-27-2023 10:40:37 PDT by Thierno Nguyen M.D. /[id number]
[2023-01-27] MEDS: CEFEPIME 1 GM VIAL IV SCH ×2 (13:05→22:06)
[2023-01-27] MEDS ORDERED: CEFEPIME 2 GM VIAL IV SCH (14:00)
[2023-01-27] MEDS ORDERED: LORazepam 0.5 MG TABLET PO PRN (19:00)
[2023-01-28] MEDS: morphine 4 MG/ML VIAL IV PRN ×2 (02:14→05:56)
[2023-01-28] MEDS: IPRATROPIUM/ALBUTEROL 3 ML AMPUL.NEB NEB PRN (04:33)
[2023-01-28] MEDS: CEFEPIME 1 GM VIAL IV SCH ×2 (05:34→13:41)
[2023-01-28] MEDS: 0.9 % SODIUM CHLORIDE 10 ML SYRINGE IV SCH ×2 (05:34→13:41)
[2023-01-28] MEDS: INSULIN LISPRO 1 UNIT/0.01 ML UNIT SQ SCH ×4 (06:32→17:06)
[2023-01-28] MEDS ORDERED: QUEtiapine 25 MG TABLET PO SCH (07:56)
[2023-01-28] MEDS: DOCUSATE SODIUM 100 MG CAPSULE PO SCH (08:07)
[2023-01-28] MEDS: METOPROLOL TARTRATE 50 MG TABLET PO SCH (08:07)
[2023-01-28] MEDS: APIXABAN 5 MG TABLET PO SCH (08:07)
[2023-01-28] MEDS: predniSONE 20 MG TABLET PO SCH (08:07)
[2023-01-28] MEDS: ESCITALOPRAM 10 MG TABLET PO SCH (08:07)
[2023-01-28] MEDS: FAMOTIDINE 20 MG TABLET PO SCH (08:07)
[2023-01-28] MEDS: Dorzolamide-Timolol 22.3-6.8 mg/mL drops OU SCH (08:07)
[2023-01-28] MEDS: INSULIN GLARGINE, HUMAN 1 UNIT/0.01 ML SQ SCH (08:07)
[2023-01-28] MEDS: LISINOPRIL 20 MG TABLET PO SCH (08:07)
[2023-01-28] MEDS ORDERED: LORazepam 2 MG/ML VIAL IV SCH (11:07)
--- NOTE | 2023-01-28 13:07 | Internal Med Progress Note ---
SUBJECTIVE Subjective Patient information: Note initiated : 01/28/23 at 12:59 pm Service Date, if different from initiated Date: [] Patient: Elizabeth Verduzco 62 y/o F admitted on 01/24/23 for back pain. Chief Complaint: [] Additional PMFSH (Level 3 Only): Patient is a 62 years old female with complex past medical history significant for drug abuse, chronic back pain, decubitus ulcer of left posterior thigh and right buttock, Henoch-Schnlein purpura chronically on prednisone, CKD stage III, COPD, chronic hypoxic respiratory failure requiring 3 L nasal cannula oxygen, diabetes mellitus 2, hypertension, hepatitis C, glucoma, irritable bowel syndrome, anxiety, current smoker and trying to cut down, presented to ER on 01/24 with altered mental status, intractable back pain. Patient states she ran out of her pain medication and her PCP would not refill it early. She has had multiple falls resulting in compression fractures of her spine. She fell recently onto family members coffee table and also injured her right finger middle finger. Urine and imaging of the bladder findings concerning for emphysematous cystitis. She was hyperkalemic at 5.7 which increased to 6.8 and finally resolved.. UDS of course was positive for methamphetamine. It also was positive for opioids for she has no prescriptions. 01/27 Patient is found to have MSSA bacteremia on blood cultures from 01/24 and 01/25. Blood cultures from 01/27 pending. Patient had been receiving ceftriaxone before. ID note reviewed. Detailed discussion with ID. Unclear source of infection. Cystitis may be a consideration however patient has had no instrumentation. 2D echocardiogram without evidence of endocarditis. Urine culture positive for E. coli, yesterday antibiotic was changed to ciprofloxacin from ceftriaxone. Today patient is very confused, she is agitated. MRI spine has been ordered however patient is not able to tolerate it with this altered mental status. If her blood cultures remains positive will need transesophageal echocardiogram to rule out endocarditis, ID agrees. 01/28 patient remains encephalopathic, at times she is crying and yelling, when prompted she would briefly respond appropriately. MRI spine has been planned to look for vertebral osteomyelitis or discitis however patient has been encephalopathic and has not been able to tolerate, plan is to give her Seroquel and Ativan and complete her MRI imaging. In the meantime it was reported that patient blood cultures have come back positive from 01/27. Patient remains afebrile. Review of Systems: Patient still remains encephalopathic, intermittently she becomes appropriate briefly and would not answer questions however then he drifts back to altered mentation. She reports hip pain however review of system is somewhat limited Pertinent positives as above. Denies headache/fever/chills//vomiting/chest or abdominal pain/cough/dyspnea/diarrhea. PHYSICAL EXAM General: Alert, remains confused but in no acute distress Eyes/N/T: EOMI, no scleral icterus, Head/Neck: neck supple, full ROM, CV: Tachycardic and regular and rate improving, No murmurs, Pulm: fine rales b/l, no wheezing, no respiratory distress Abd: soft, nontender, +BS x4 Ext: no clubbing/cyanosis, mild b/l LE edema Neuro: Alert, confused, moving limbs, no focal deficits Psychiatric: Patient remains encephalopathic Skin: warm/dry, Multiple small scabbed wounds Assessment and plan *Emphysematous cystitis: Urine culture positive for E. coli. Patient on cefepime. *Persistent bacteremia(Staph Aureus): Blood cultures from 01/24, 01/25, 01/27 positive. Could be secondary to skin wounds however needs to rule out endocarditis and or osteomyelitis since patient complains of back pain. 2D echocardiogram with no vegetation. Discussed case with [facility], Dr Fuentes, math and science instructor agrees with transfer and [facility] however they do not have bed available at present. They will get in touch with our beam house inspector when the bed becomes available for transfer. ID is following, recommendations appreciated. Patient remains on cefepime. *Sepsis: -tachycardia/tachypnea/source of infection *Encephalopathy: 2/2 above + meth use -Responded to Seroquel and Ativan *Hyperkalemia/Hypophos: *Volume depletion: improved *Sinus tachycardia: Patient states she is chronically tachycardic, -improving *Substance abuse: With methamphetamine and likely opioid abuse *Acute on chronic back pain: 2/2 recent fall and compression fx's, rule out vertebral osteomyelitis *Compression Fx's of thoracic/lumbar spine. After receiving Seroquel and Ativan patient able to tolerate MRI spine, results awaited *Generalized weakness/deconditioning/falling: *right middle finger swelling/pain: 2/2 fall, xray with avulsion fracture of third digit *h/o DVT's: on eliquis *COPD(3L@home): *RIKY on cpap: *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, currently on 40mg daily, continue *DM2: *HTN: *GERD: *Anxiety/Depression: prn ativan,ssri *Tobacco abuse: Counseled on smoking cessation Encephalopathy, could be metabolic versus drug-induced. Discontinue ciprofloxacin Assessment and plan -Discontinue ciprofloxacin due to confusion antibiotic changed to cefepime. Vancomycin has been discontinued. Cefepime will cover for bacteremia and also for UTI. -ID consult appreciated -serial BC's -monitor renal fxn/uop/i&o -monitor potassium and other electrolytes and treat accordingly -cont acei, started BB(increase) for chronic sinus tach -cont home IH's and home O2, prn nebs -cont psych meds -Hold aldactone for now -basal and ssi -home qhs cpap -PT/OT, ST eval -Smoking & substance use cessation counseling -CM for placement -ppx: apixiban / home H2 Portions of this chart may have been created with [employer]ylo voice recognition software. Occasional wrong-word or sound-like substitutions may have occurred due to the inherent limitations of voice recognition software. Please read the chart carefully and recognize, using context, where the substitutions have occurred. Constitutional Vitals: Vital Signs Temp Pulse Resp BP Pulse Ox O2 Del Method O2 Flow Rate 98.4 F 104 H 12 111/71 94 Nasal Cannula 3 01/28/23 12:47 01/28/23 12:47 01/28/23 12:47 01/28/23 12:47 01/28/23 12:47 01/28/23 12:47 01/28/23 12:47 Period Temp Pulse Resp BP Sys/Moffett Pulse Ox O2 Del Method O2 Flow Rate Last 24 Hr 97.3 F-98.4 F 89-107 12-97 111-134/70-94 3-97 Nasal Cannula- Nasal Cannula 3-3 Intake and Output 01/28/23 01/28/23 01/28/23 03:59 11:59 19:59 Intake Total 240 100 Output Total 2 Balance 238 100 Weight 83.824 kg Intake & Output: Intake & Output 01/28/23 01/28/23 01/28/23 03:59 11:59 19:59 Intake Total 240 100 Output Total 2 Balance 238 100 Weight 83.824 kg Intake: Nourishment/Supplement quantity 240 (ml) Oral 100 Output: # of times incontinent of urine 2 Other: Meal Breakfast Percent of Meal Consumed 100% 0% Feeding Ability Total Assistance Total Assistance Nourishment/Supplement name [email or web address] # Voids 1 OBJ DATA Labs 01/25/23 06:15 01/27/23 05:48 Labs: Abnormal Lab Results 01/27/23 01/26/23 01/26/23 05:48 05:37 05:36 Sodium 146 H Potassium 3.1 L Carbon Dioxide 37 H Anion Gap 5.0 L Creatinine 0.4 L 0.4 L Glucose 196 H 126 H Phosphorus 2.0 L GGT 389 H 256 H AST 67 H 36 H ALT 50 H Alkaline Phosphatase 401 H 258 H Lactate Dehydrogenase 356 H 311 H Total Protein 5.7 L Albumin 1.9 L 1.8 L Globulin 4.0 H 3.9 H Albumin/Globulin Ratio 0.5 L 0.5 L Procalcitonin 0.52 H Meds: Medications Acetaminophen (Acetaminophen 325 Mg Tablet) 650 mg PO Q6HP PRN; Protocol PRN Reason: Per Pain Protocol/Fever > 101 Last Admin: 01/26/23 02:36 Dose: 650 mg Hydrocodone Bitart/Acetaminophen (Hydrocodone/Apap 5/325mg Tablet) 1 tab PO Q4HP PRN PRN Reason: PAIN LEVEL 3-6 Last Admin: 01/26/23 20:40 Dose: 1 tab Albuterol/Ipratropium (Ipratropium/Albuterol 3 Ml Ampul.Neb) 3 ml NEB Q4HP PRN PRN Reason: Shortness Of Breath Last Admin: 01/28/23 04:33 Dose: 3 ml Apixaban (Apixaban 5 Mg Tablet) 5 mg PO BID KAREN Last Admin: 01/28/23 08:07 Dose: 5 mg Cefepime HCl (Cefepime 1 Gm Vial) 1 gm IV Q8H KAREN Last Admin: 01/28/23 05:34 Dose: 1 gm Dextrose (Dextrose 50% 50 Ml Vial) 0 ml IV UD PRN PRN Reason: Per Sliding Scale Diagnostic Test (Pha) (Accu-Chek 1 Each Strip) 1 each FS ACHS KAREN Last Admin: 01/28/23 12:48 Dose: 1 each Dicyclomine HCl (Dicyclomine 20 Mg Tablet) 20 mg PO QID PRN PRN Reason: stomach cramping Docusate Sodium (Docusate Sodium 100 Mg Capsule) 100 mg PO BID [facility] Last Admin: 01/28/23 08:07 Dose: 100 mg Escitalopram Oxalate (Escitalopram 10 Mg Tablet) 10 mg PO QDAY [facility] Last Admin: 01/28/23 08:07 Dose: 10 mg Famotidine (Famotidine 20 Mg Tablet) 20 mg PO BID [facility] Last Admin: 01/28/23 08:07 Dose: 20 mg Glucose (Dextrose 31 Gm Oral.Susp) 15 gm PO PRN PRN PRN Reason: Hypoglycemia Potassium Chloride 40 meq/ (Dextrose) 520 mls @ 130 mls/hr IV UD PRN PRN Reason: Potassium < 3 Magnesium Sulfate (Magnesium Sulfate) 2 gm in 50 mls @ 50 mls/hr IV UD PRN PRN Reason: Magnesium </= 1.6 Insulin Glargine (Insulin Glargine, Human 1 Unit/0.01 Ml) 15 unit SQ QDAY [facility] Last Admin: 01/28/23 08:07 Dose: 15 unit Insulin Human Lispro (Insulin Lispro 1 Unit/0.01 Ml Unit) 0 unit SQ [facility]; Protocol Last Admin: 01/28/23 12:48 Dose: Not Given Labetalol HCl (Labetalol 5 Mg/Ml Ml) 0 mg IV Q2HP PRN PRN Reason: Hypertension Lisinopril (Lisinopril 20 Mg Tablet) 20 mg PO BID [facility] Last Admin: 01/28/23 08:07 Dose: 20 mg Lorazepam (Lorazepam 0.5 Mg Tablet) 0.5 mg PO BIDP PRN PRN Reason: AGGITATION Last Admin: 01/28/23 04:33 Dose: 0.5 mg Lorazepam (Lorazepam 2 Mg/Ml Vial) 0.5 mg IV ONCE [facility] Stop: 01/28/23 13:00 Last Admin: 01/28/23 11:29 Dose: 0.5 mg Metoprolol Tartrate (Metoprolol Tartrate 5 Mg/5 Ml Vial) 5 mg IV Q2HP PRN PRN Reason: Tachyarrhythmias HR>110 Last Admin: 01/27/23 08:52 Dose: 5 mg Metoprolol Tartrate (Metoprolol Tartrate 50 Mg Tablet) 50 mg PO BID [facility] Last Admin: 01/28/23 08:07 Dose: 50 mg Morphine Sulfate (Morphine 4 Mg/Ml Vial) 0 mg IV Q3HP PRN PRN Reason: Pain Last Admin: 01/28/23 05:56 Dose: 2 mg Ondansetron HCl (Ondansetron 4 Mg/2 Ml Vial) 4 mg IV Q4HP PRN PRN Reason: Nausea And Vomiting Last Admin: 01/26/23 09:37 Dose: 4 mg Dorzolamide-Timolol (22.3-6.8 Mg/Ml Drops) 1 dose OU BID [facility] Last Admin: 01/28/23 08:07 Dose: 1 dose Polyethylene Glycol (Polyethylene Glycol 3350 17 Gm Packet) 17 gm PO DAILYP PRN PRN Reason: Constipation Potassium Chloride (Potassium Chloride 20 Meq Tablet) 40 meq PO UD PRN PRN Reason: Potssium is 3-3.5 Potassium Chloride (Potassium Chloride 20 Meq Tablet) 40 meq PO UD PRN PRN Reason: Potassium < 3 Prednisone (Prednisone 20 Mg Tablet) 40 mg PO QDAY [facility] Last Admin: 01/28/23 08:07 Dose: 40 mg Senna (Sennosides 1 Tablet) 2 tab PO DAILYP PRN PRN Reason: Constipation Sodium Chloride (0.9 % Sodium Chloride 10 Ml Syringe) 10 ml IV Q8 [facility] Last Admin: 01/28/23 05:34 Dose: 10 ml Tramadol HCl (Tramadol 50 Mg Tablet) 100 mg PO QIDP PRN PRN Reason: Pain Trazodone HCl (Trazodone Hcl 50 Mg Tablet) 50 mg PO QHS PRN PRN Reason: insomnia A/P Time Spent With Patient Time: Total time spent is greater than 50% in coordination of care (as documented) at patient's floor/unit and/or counseling patient: Initial: Total time with patient: 55 - 74 minutes QUALITY VTE Deep Vein Thrombosis/Pulmonary Embolism Present on Admission: No
[2023-01-28 14:49] LABS: ALT/SGPT 29 U/L (<40); AST/SGOT 28 U/L (<32); Albumin 1.9 gm/dL (3.2-5.2); Albumin/Globulin Ratio 0.5 (1.0-2.3); Alkaline Phosphatase 326 U/L (39-117); Bilirubin,Total 0.4 mg/dL (0.1-1.0); Blood Urea Nitrogen 16 mg/dL (8-23); Calcium 9.4 mg/dL (8.6-10.4); Carbon Dioxide 38 mmol/L (22-30); Chloride 98 mmol/L (96-108); Globulin 3.7 gm/dL (2.2-3.7); Glomerular Filtration Rate 123; Glucose 190 mg/dL (70-105)
--- NOTE | 2023-01-28 15:14 | Internal Med Progress Note ---
SUBJECTIVE Subjective Patient information: Note initiated : 01/28/23 at 3:12 pm Service Date, if different from initiated Date: [] Patient: Elizabeth Verduzco 62 y/o F admitted on 01/24/23 for back pain. Chief Complaint: [] Principal diagnosis: MSSA Bacteremia Interval history: Patient remains encephalopathic. Blood cultures from 01/27 is also positive Constitutional Vitals: Vital Signs Temp Pulse Resp BP Pulse Ox O2 Del Method O2 Flow Rate 98.4 F 104 H 12 111/71 94 Nasal Cannula 3 01/28/23 12:47 01/28/23 12:47 01/28/23 12:47 01/28/23 12:47 01/28/23 12:47 01/28/23 12:47 01/28/23 12:47 Period Temp Pulse Resp BP Sys/Moffett Pulse Ox O2 Del Method O2 Flow Rate Last 24 Hr 97.3 F-98.4 F 89-107 12-97 111-134/70-94 3-97 Nasal Cannula- Nasal Cannula 3-3 Intake and Output 01/28/23 01/28/23 01/28/23 03:59 11:59 19:59 Intake Total 240 100 Output Total 2 Balance 238 100 Weight 184 lb 12.8 oz Intake & Output: Intake & Output 01/28/23 01/28/23 01/28/23 03:59 11:59 19:59 Intake Total 240 100 Output Total 2 Balance 238 100 Weight 184 lb 12.8 oz Intake: Nourishment/Supplement quantity 240 (ml) Oral 100 Output: # of times incontinent of urine 2 Other: Meal Breakfast Lunch Percent of Meal Consumed 100% 0% 0% Feeding Ability Total Assistance Total Assistance Nourishment/Supplement name [email or web address] # Voids 1 1 Additional findings Additional findings: Patient somnolent. Nuchal rigidity. OBJ DATA Labs 01/25/23 06:15 01/28/23 13:34 Labs: Abnormal Lab Results 01/28/23 01/27/23 01/26/23 13:34 05:48 05:37 Sodium Potassium Carbon Dioxide 38 H 37 H Anion Gap 7.0 L 5.0 L Creatinine 0.3 L 0.4 L Glucose 190 H 196 H Phosphorus GGT 389 H AST 67 H ALT 50 H Alkaline Phosphatase 326 H 401 H Lactate Dehydrogenase 356 H Total Protein 5.6 L Albumin 1.9 L 1.9 L Globulin 4.0 H Albumin/Globulin Ratio 0.5 L 0.5 L Procalcitonin 0.52 H 01/26/23 05:36 Sodium 146 H Potassium 3.1 L Carbon Dioxide Anion Gap Creatinine 0.4 L Glucose 126 H Phosphorus 2.0 L GGT 256 H AST 36 H ALT Alkaline Phosphatase 258 H Lactate Dehydrogenase 311 H Total Protein 5.7 L Albumin 1.8 L Globulin 3.9 H Albumin/Globulin Ratio 0.5 L Procalcitonin Meds: Medications Acetaminophen (Acetaminophen 325 Mg Tablet) 650 mg PO Q6HP PRN; Protocol PRN Reason: Per Pain Protocol/Fever > 101 Last Admin: 01/26/23 02:36 Dose: 650 mg Hydrocodone Bitart/Acetaminophen (Hydrocodone/Apap 5/325mg Tablet) 1 tab PO Q4HP PRN PRN Reason: PAIN LEVEL 3-6 Last Admin: 01/26/23 20:40 Dose: 1 tab Albuterol/Ipratropium (Ipratropium/Albuterol 3 Ml Ampul.Neb) 3 ml NEB Q4HP PRN PRN Reason: Shortness Of Breath Last Admin: 01/28/23 04:33 Dose: 3 ml Apixaban (Apixaban 5 Mg Tablet) 5 mg PO BID [facility] Last Admin: 01/28/23 08:07 Dose: 5 mg Cefepime HCl (Cefepime 1 Gm Vial) 1 gm IV Q8H [facility] Last Admin: 01/28/23 13:41 Dose: 1 gm Dextrose (Dextrose 50% 50 Ml Vial) 0 ml IV UD PRN PRN Reason: Per Sliding Scale Diagnostic Test (Pha) (Accu-Chek 1 Each Strip) 1 each FS ACHS [facility] Last Admin: 01/28/23 12:48 Dose: 1 each Dicyclomine HCl (Dicyclomine 20 Mg Tablet) 20 mg PO QID PRN PRN Reason: stomach cramping Docusate Sodium (Docusate Sodium 100 Mg Capsule) 100 mg PO BID [facility] Last Admin: 01/28/23 08:07 Dose: 100 mg Escitalopram Oxalate (Escitalopram 10 Mg Tablet) 10 mg PO QDAY [facility] Last Admin: 01/28/23 08:07 Dose: 10 mg Famotidine (Famotidine 20 Mg Tablet) 20 mg PO BID [facility] Last Admin: 01/28/23 08:07 Dose: 20 mg Glucose (Dextrose 31 Gm Oral.Susp) 15 gm PO PRN PRN PRN Reason: Hypoglycemia Potassium Chloride 40 meq/ (Dextrose) 520 mls @ 130 mls/hr IV UD PRN PRN Reason: Potassium < 3 Magnesium Sulfate (Magnesium Sulfate) 2 gm in 50 mls @ 50 mls/hr IV UD PRN PRN Reason: Magnesium </= 1.6 Insulin Glargine (Insulin Glargine, Human 1 Unit/0.01 Ml) 15 unit SQ QDAY [facility] Last Admin: 01/28/23 08:07 Dose: 15 unit Insulin Human Lispro (Insulin Lispro 1 Unit/0.01 Ml Unit) 0 unit SQ ACHS [facility]; Protocol Last Admin: 01/28/23 12:48 Dose: Not Given Labetalol HCl (Labetalol 5 Mg/Ml Ml) 0 mg IV Q2HP PRN PRN Reason: Hypertension Lisinopril (Lisinopril 20 Mg Tablet) 20 mg PO BID [facility] Last Admin: 01/28/23 08:07 Dose: 20 mg Lorazepam (Lorazepam 0.5 Mg Tablet) 0.5 mg PO BIDP PRN PRN Reason: AGGITATION Last Admin: 01/28/23 04:33 Dose: 0.5 mg Metoprolol Tartrate (Metoprolol Tartrate 5 Mg/5 Ml Vial) 5 mg IV Q2HP PRN PRN Reason: Tachyarrhythmias HR>110 Last Admin: 01/27/23 08:52 Dose: 5 mg Metoprolol Tartrate (Metoprolol Tartrate 50 Mg Tablet) 50 mg PO BID [facility] Last Admin: 01/28/23 08:07 Dose: 50 mg Morphine Sulfate (Morphine 4 Mg/Ml Vial) 0 mg IV Q3HP PRN PRN Reason: Pain Last Admin: 01/28/23 05:56 Dose: 2 mg Ondansetron HCl (Ondansetron 4 Mg/2 Ml Vial) 4 mg IV Q4HP PRN PRN Reason: Nausea And Vomiting Last Admin: 01/26/23 09:37 Dose: 4 mg Dorzolamide-Timolol (22.3-6.8 Mg/Ml Drops) 1 dose OU BID [facility] Last Admin: 01/28/23 08:07 Dose: 1 dose Polyethylene Glycol (Polyethylene Glycol 3350 17 Gm Packet) 17 gm PO DAILYP PRN PRN Reason: Constipation Potassium Chloride (Potassium Chloride 20 Meq Tablet) 40 meq PO UD PRN PRN Reason: Potssium is 3-3.5 Potassium Chloride (Potassium Chloride 20 Meq Tablet) 40 meq PO UD PRN PRN Reason: Potassium < 3 Prednisone (Prednisone 20 Mg Tablet) 40 mg PO QDAY [facility] Last Admin: 01/28/23 08:07 Dose: 40 mg Senna (Sennosides 1 Tablet) 2 tab PO DAILYP PRN PRN Reason: Constipation Sodium Chloride (0.9 % Sodium Chloride 10 Ml Syringe) 10 ml IV Q8 [facility] Last Admin: 01/28/23 13:41 Dose: 10 ml Tramadol HCl (Tramadol 50 Mg Tablet) 100 mg PO QIDP PRN PRN Reason: Pain Trazodone HCl (Trazodone Hcl 50 Mg Tablet) 50 mg PO QHS PRN PRN Reason: insomnia A/P Sepsis Sepsis Identified: Yes Time Zero: 321 Narrative A/P Narrative: Patient with MSSA septicemia. Unable to do GALLO or MRI at this time. Patient r emains encephalopathic and bacteremic. She was started on cefazolin plus ciprofloxacin. Antibiotic was changed to cefepime due to concern for Cipro induced encephalopathy. Patient also had E. coli UTI with emphysematous cystitis seen on CT abdomen and pelvis. Plan of Treatment: Increase cefepime to 2 g IV every 8 hours. Obtain lumbar puncture. Sent for cell count, protein, glucose. Gram stain, [employer] Time Spent With Patient Time: Total time spent is greater than 50% in coordination of care (as documented) at patient's floor/unit and/or counseling patient: QUALITY VTE Deep Vein Thrombosis/Pulmonary Embolism Present on Admission: No
[2023-01-28 15:30] LABS: Basophils # (Auto) 0.05 K/mcL (0.00-0.30); Basophils % (Auto) 0.4 % (0.0-2.0); Eosinophils # (Auto) 0 K/mcL (0.00-0.70); Eosinophils % (Auto) 0 % (0.0-7.0); Hematocrit 42.3 % (34.1-44.9); Hemoglobin 12.2 g/dL (11.2-15.7); Lymphocytes # (Auto) 0.39 K/mcL (1.50-4.80); Lymphocytes % (Auto) 3.4 % (15.5-49.0); Mean Cell Volume 98.8 fL (80.0-100.0); Mean Corpuscular HGB Conc 28.8 g/dL (31.0-36.0); Monocytes # (Auto) 0.27 K/mcL (0.10-0.90); Monocytes % (Auto) 2.4 % (1.0-12.0); Neutrophils % (Auto) 92.4 % (38.0-78.0); Platelet Count 118 K/mcL (140-440); RBC 4.28 M/mcL (3.59-5.38); Red Cell Distribution Width 15.7 % (11.5-14.5); WBC 11.4 K/mcL (4.5-11.0)
[2023-01-28] MEDS ORDERED: CEFEPIME 1 GM VIAL IV SCH (15:30)
--- NOTE | 2023-01-28 15:34 | Magnetic Resonance Report ---
CLINICAL INFORMATION: Back pain compression fractures. Evaluate for discitis/osteomyelitis COMPARISON: None. TECHNIQUE: Sagittal T1 FLAIR, T1 FLAIR post Magnevist STIR, fast spin echo T2, coronal T2 and axial T1 FLAIR post Magnevist axial T2 weighted images were acquired. FINDINGS: Mild chronic T3-T9 compression fractures result in accentuation of the thoracic kyphotic curve. At T12, there is increased STIR signal throughout the vertebral body with mild diffuse enhancement and inflammation in the paraspinous soft tissues. There is also increased signal in the adjacent T11-T12 and T12-L1 discs. This could indicate osteomyelitis and adjacent discitis. The thoracic cord is normal in contour and caliber with homogeneous signal. Paraspinous soft tissues are significant for moderate right and small left pleural effusions. At C6-7, moderate broad disc spur complex results in moderate central canal and bilateral IV foraminal narrowing with exiting C7 nerve root impingement. The C7-T1 through T6-7 disc levels are normal. At T7-T8, small central disc protrusion mildly impinges the thecal sac. The T8-9, T9-10 and T10-11 disc levels are unremarkable. At T11-T12 and T12-L1, there is no evidence of disc protrusion. IMPRESSION: 1. Possible osteomyelitis of the T12 vertebral body with discitis in the adjacent T11-T12 and T12-L1 discs. 2. Mild chronic compression fractures at T3-T9 is accentuated normal thoracic kyphotic curve. 3. C6-7: Moderate broad disc protrusion resulting in moderate central canal and bilateral IV foraminal narrowing exiting C7 nerve root impingement 4. Moderate right and small /moderate left pleural effusion Interpreted and Authenticated by: Thierno Herron 01/28/23
--- NOTE | 2023-01-28 15:38 | Magnetic Resonance Report ---
CLINICAL INFORMATION: Back pain. History compression fracture. I defer osseous myelitis-discitis. COMPARISON: None. TECHNIQUE: Sagittal T1 FLAIR, STIR, fast spin echo T2, coronal T2 and axial T2 weighted images were acquired. FINDINGS: The lumbar spine is normal in curvature and alignment. Conus medullaris ends at T12 homogeneous signal. Cauda equina roots are normal. No soft tissue abnormalities. Mild chronic L1, L2 and moderate chronic L3 compression fractures noted. At T12, there is increased STIR signal throughout the vertebral body with mild diffuse enhancement and inflammation in the paraspinous soft tissues. There is also increased signal in the adjacent T11-T12 and T12-L1 discs. This could indicate osteomyelitis and adjacent discitis. At L1-2, mild broad disc protrusion mildly impinges the thecal sac. At L2-3 mild broad disc protrusion mildly impinges the thecal sac is mild bilateral IV foraminal narrowing. At L3-4 mild broad disc protrusion mildly impinges the thecal sac is moderate bilateral IV foraminal narrowing slight impingement exiting L3 nerve roots. At L4-5 mild broad disc protrusion facet arthropathy result in moderate bilateral IV foraminal narrowing exiting L4 nerve root impingement mild central canal stenosis. At L5-S1 there is mild annular bulge and facet arthropathy. IMPRESSION: 1. Suspect osteomyelitis of the T12 vertebral body with discitis and the adjacent T11-T12 and T12-L1 discs with paraspinous phlegmon. Please correlate with inflammatory serologies 2. Mild multilevel degenerative change 3. Mild chronic L1-L2 and moderate chronic L3 compression fractures Interpreted and Authenticated by: Thierno Herron 01/28/23
--- NOTE | 2023-01-28 16:30 | Discharge Summary ---
Discharge Provider Provider IMPORTANT FOLLOW-UP INFORMATION FOR PCP: Patient information: Note initiated : 01/28/23 at 4:27 pm Service Date, if different from initiated Date: [] Patient: Elizabeth Verduzco 62 y/o F admitted on 01/24/23 for back pain. Chief Complaint: [] Date of admission: 01/24/23 21:12 Discharge date: 01/28/23 Primary care physician: Thierno Leonard DO Consults: 01/24/23 13:00 Consult to Physician [CONS] Stat Comment: Consulting Provider: Maxim Grover Reason For Exam: Physician to Consult 01/26/23 10:24 Consult to Physician [CONS] Routine Comment: staph bacteremia Consulting Provider: Parveen WAN Reason For Exam: Physician to Consult Attending physician on discharge: Shimon Brooks COURSE Hospital Course Hospital course: Patient is a 62 years old female with complex past medical history significant for drug abuse, chronic back pain, decubitus ulcer of left posterior thigh and right buttock, Henoch-Schnlein purpura chronically on prednisone, CKD stage III, COPD, chronic hypoxic respiratory failure requiring 3 L nasal cannula oxygen, diabetes mellitus 2, hypertension, hepatitis C, glucoma, irritable bowel syndrome, anxiety, current smoker and trying to cut down, presented to ER on 01/24 with altered mental status, intractable back pain. Patient states she ran out of her pain medication and her PCP would not refill it early. She has had multiple falls resulting in compression fractures of her spine. She fell recently onto family members coffee table and also injured her right finger middle finger. CT head was negative for acute finding. CT C-spine did not show any acute findings. CT pelvis showed severe emphysematous cystitis, osteopenia parotic compression fracture mid thoracic and lumbar spine acuity unknown. No definite acute fracture was noted. Patient was hyperkalemic at 5.7 on admission which went up to 6.8. Urine drug screen was positive for methamphetamine, also positive for opioids for which she has no prescription. Patient urine culture was positive for E. coli. Patient is found to have MSSA bacteremia on blood cultures from 01/24 and 01/25 and most recently from 01/27. 2D echocardiogram without evidence of endocarditis. ID has been following. ID started her on cefazolin plus ciprofloxacin, antibiotic was changed to cefepime 2 g IV every 8 hours due to concern for Cipro induced encephalopathy. After premedicating patient with Ativan and Seroquel patient finally underwent MRI thoracic and lumbar spine which is concerning for possible osteomyelitis of T12 with discitis and adjacent T11-T12 and T12-L1 discs. Lumbar puncture has been ordered. Patient needs GALLO and was discussed with Dr. Tobias shed workers supervisor at [facility] and he graciously agreed to accept patient for GALLO Review of Systems: Patient still remains encephalopathic, intermittently she becomes appropriate briefly and would not answer questions however then he drifts back to altered mentation. She reports hip pain however review of system is somewhat limited Pertinent positives as above. Denies headache/fever/chills//vomiting/chest or abdominal pain/cough/dyspnea/diarrhea. PHYSICAL EXAM General: Alert, remains confused but in no acute distress Eyes/N/T: EOMI, no scleral icterus, Head/Neck: neck supple, full ROM, CV: Tachycardic and regular and rate improving, No murmurs, Pulm: fine rales b/l, no wheezing, no respiratory distress Abd: soft, nontender, big anterior abdominal hernia, +BS x4 Ext: no clubbing/cyanosis, mild b/l LE edema Neuro: Alert, confused, moving limbs, no focal deficits Psychiatric: Patient remains encephalopathic MSK: Mild tenderness lower T spine Skin: warm/dry, Multiple small scabbed wounds Assessment and plan Staphylococcus aureus bacteremia. Patient is found to have MSSA bacteremia on blood cultures from 01/24 and 01/25 and most recently from 01/27. 2D echocardiogram without evidence of endocarditis. ID has been following. Patient has been very encephalopathic and was not able to tolerate imaging. Eventually patient responded to Ativan and Seroquel and underwent MRI spine which is concerning for possible osteomyelitis of T12 with discitis and adjacent T11-T12 and T12-L1 discs. Lumbar puncture has been ordered. Patient needs GALLO and was discussed with Dr. Woodward and Dr Castro shed workers supervisor at [facility] and he graciously agreed to accept patient for GALLO Osteomyelitis of thoracic vertebrae with associated discitis of adjacent T11-T12 and T12-L1, see above *UTI/Emphysematous cystitis: Urine culture positive for E. coli. Patient on cefepime. *Sepsis: tachycardia/tachypnea/source of infection *Encephalopathy: 2/2 above + meth use, responded to Seroquel and Ativan *Hyperkalemia/Hypophos: *Volume depletion: improved *Sinus tachycardia: Patient has chronic mild tachycardia, sepsis contributing. Improved after starting beta-shahnaz home dose *Substance abuse: With methamphetamine and likely opioid abuse *Acute on chronic back pain: 2/2 recent fall and compression fx's, and vertebral osteomyelitis and discitis *Generalized weakness/deconditioning/falling: *right middle finger swelling/pain: 2/2 fall, xray with avulsion fracture of third digit *h/o DVT's: on eliquis *COPD(3L@home): *RIKY on cpap: *H/o Henoch-Schnlein purpura: on prednisone taper, currently on 40mg daily, continue *DM2:Stable *HTN: Stable *GERD: PPI *Anxiety/Depression: prn ativan *Tobacco abuse/nicotine dependence: Counseled on smoking cessation Portions of this chart may have been created with [employer] voice recognition software. Occasional wrong-word or sound-like substitutions may have occurred due to the inherent limitations of voice recognition software. Please read the chart carefully and recognize, using context, where the substitutions have occurred. [facility] NAME: Elizabeth Verduzco [address] [place] [address] : 1960 [address] Service Date: 01/28/23 Report # [id number] [place] [address] Thierno Herron M.D. MR #: [id number] Magnetic Resonance Report Signed Ordering Physician:Shimon Brooks M.D. Date of Service:01/28/23 Procedure(s):MR thoracic spine wo/w con CLINICAL INFORMATION: Back pain compression fractures. Evaluate for discitis/osteomyelitis COMPARISON: None. TECHNIQUE: Sagittal T1 FLAIR, T1 FLAIR post Magnevist STIR, fast spin echo T2, coronal T2 and axial T1 FLAIR post Magnevist axial T2 weighted images were acquired. FINDINGS: Mild chronic T3-T9 compression fractures result in accentuation of the thoracic kyphotic curve. At T12, there is increased STIR signal throughout the vertebral body with mild diffuse enhancement and inflammation in the paraspinous soft tissues. There is also increased signal in the adjacent T11-T12 and T12-L1 discs. This could indicate osteomyelitis and adjacent discitis. The thoracic cord is normal in contour and caliber with homogeneous signal. Paraspinous soft tissues are significant for moderate right and small left pleural effusions. At C6-7, moderate broad disc spur complex results in moderate central canal and bilateral IV foraminal narrowing with exiting C7 nerve root impingement. The C7-T1 through T6-7 disc levels are normal. At T7-T8, small central disc protrusion mildly impinges the thecal sac. The T8-9, T9-10 and T10-11 disc levels are unremarkable. At T11-T12 and T12-L1, there is no evidence of disc protrusion. IMPRESSION: 1. Possible osteomyelitis of the T12 vertebral body with discitis in the adjacent T11-T12 and T12-L1 discs. 2. Mild chronic compression fractures at T3-T9 is accentuated normal thoracic kyphotic curve. 3. C6-7: Moderate broad disc protrusion resulting in moderate central canal and bilateral IV foraminal narrowing exiting C7 nerve root impingement 4. Moderate right and small /moderate left pleural effusion Interpreted and Authenticated by: Thierno Herron 01/28/23 Procedure(s):MR lumbar spine wo/w con CLINICAL INFORMATION: Back pain. History compression fracture. I defer osseous myelitis-discitis. COMPARISON: None. TECHNIQUE: Sagittal T1 FLAIR, STIR, fast spin echo T2, coronal T2 and axial T2 weighted images were acquired. FINDINGS: The lumbar spine is normal in curvature and alignment. Conus medullaris ends at T12 homogeneous signal. Cauda equina roots are normal. No soft tissue abnormalities. Mild chronic L1, L2 and moderate chronic L3 compression fractures noted. At T12, there is increased STIR signal throughout the vertebral body with mild diffuse enhancement and inflammation in the paraspinous soft tissues. There is also increased signal in the adjacent T11-T12 and T12-L1 discs. This could indicate osteomyelitis and adjacent discitis. At L1-2, mild broad disc protrusion mildly impinges the thecal sac. At L2-3 mild broad disc protrusion mildly impinges the thecal sac is mild bilateral IV foraminal narrowing. At L3-4 mild broad disc protrusion mildly impinges the thecal sac is moderate bilateral IV foraminal narrowing slight impingement exiting L3 nerve roots. At L4-5 mild broad disc protrusion facet arthropathy result in moderate bilateral IV foraminal narrowing exiting L4 nerve root impingement mild central canal stenosis. At L5-S1 there is mild annular bulge and facet arthropathy. IMPRESSION: 1. Suspect osteomyelitis of the T12 vertebral body with discitis and the adjacent T11-T12 and T12-L1 discs with paraspinous phlegmon. Please correlate with inflammatory serologies 2. Mild multilevel degenerative change 3. Mild chronic L1-L2 and moderate chronic L3 compression fractures Interpreted and Authenticated by: Thierno Herron 01/28/23 [id number] Production Generalist: <Electronically signed by Thierno Herron M.D. in OV> 01/28/23 1535 Urine Culture Final 01/27/23-1150 PRL Organism 1 Escherichia coli Org 1: Gram Negative Bacillus (Isolate 1) > 100,000 cfu/ml (Isolate 1) Identification and Susceptibility to Follow. (Isolate 1) > 100,000 cfu/ml (Isolate 1) Org 1: Escherichia coli (Isolate 1) > 100,000 cfu/ml (Isolate 1) 10,000 - 20,000 cfu/ml Non-Pathogenic Skin/Genital Madeleine Org 1: Escherichia coli (Isolate 1) E coli M.I.C. RX --------- --- Ampicillin >16 R Ampicillin/Sulbactam >16/8 R Cefazolin 16 I Cefepime <=2 S Cefoxitin <=8 S Cefuroxime <=4 S Ciprofloxacin <=1 S Levofloxacin <=2 S Nitrofurantoin <=32 S Trimethoprim/Sulfamethoxazole >2/38 R Piperacillin/Tazobactam <=8 S PRL - [facility] Tests performed at [facility]. Discharge diagnosis: MSSA bacteremia, vertebral osteomyelitis, UTI Time spent discussing smoking cessation with patient: more than 10 minutes Time Spent with Patient Time attestation: Total time spent providing and/or coordinating discharge services: Time spent: Greater than 30 minutes EXAM Constitutional Vitals: Temp Pulse Resp BP Pulse Ox O2 Del Method O2 Flow Rate 98.4 F 104 H 12 111/71 94 Nasal Cannula 3 01/28/23 12:47 01/28/23 12:47 01/28/23 12:47 01/28/23 12:47 01/28/23 12:47 01/28/23 12:47 01/28/23 12:47 Discharge Data Data Completed and Pending Labs on day of discharge: Labs from last 24 hours 01/28/23 01/28/23 13:34 13:34 WBC 11.4 H RBC 4.28 Hgb 12.2 Hct 42.3 MCV 98.8 MCH 28.5 MCHC 28.8 L RDW 15.7 H Plt Count 118 L MPV 11.0 Immature Gran % (Auto) 1.4 H Neut % (Auto) 92.4 H Lymph % (Auto) 3.4 L Walsh % (Auto) 2.4 Eos % (Auto) 0 Baso % (Auto) 0.4 Lymph # (Auto) 0.39 L Walsh # (Auto) 0.27 Eos # (Auto) 0 Baso # (Auto) 0.05 Immature Gran # 0.16 H Absolute Neutrophils 10.55 H Sodium 143 Potassium 3.7 Chloride 98 Carbon Dioxide 38 H Anion Gap 7.0 L BUN 16 Creatinine 0.3 L GFR Calculation 123 Glucose 190 H Calcium 9.4 Total Bilirubin 0.4 AST 28 ALT 29 Alkaline Phosphatase 326 H Total Protein 5.6 L Albumin 1.9 L Globulin 3.7 Albumin/Globulin Ratio 0.5 L Preliminary micro results at discharge 01/27/23 05:47 Blood Culture - Preliminary Blood Gram positive cocci 01/27/23 05:40 Blood Culture - Preliminary Blood Gram positive cocci 01/25/23 06:30 Blood Culture - Preliminary Blood Staphylococcus aureus 01/25/23 06:24 Blood Culture - Preliminary Blood Staphylococcus aureus Discharge Plan Patient/Caregiver Discharge Instructions Activity: as per physical therapy Diet: Cardiac Prescriptions: New ipratropium-albuterol 0.5 mg-3 mg(2.5 mg base)/3 mL Solution For Nebulization 3 ml NEB Q4HP PRN (Reason: Shortness Of Breath) Qty: 0 0RF cefepime 2 gram Recon Soln 2 gm IV Q8H Qty: 0 0RF lorazepam 0.5 mg Tablet 0.5 mg PO BIDP PRN (Reason: AGGITATION) Qty: 0 0RF metoprolol tartrate 50 mg Tablet 50 mg PO BID Qty: 0 0RF docusate sodium 100 mg Capsule 100 mg PO BID Qty: 0 0RF morphine 4 mg/mL Solution 2 mg IV Q3HP PRN (Reason: Pain) Qty: 0 0RF Continued (DME) Oxygen 3LPM QHS See Rx Instructions .Route .MEDSUPPLY Qty: 1 0RF Rx Instructions: As directed (DME) lancets [OneTouch UltraSoft Lancets] Misc See Rx Instructions .Route Qty: 100 3RF Rx Instructions: As directed to test blood sugars three times daily (DME) CPAP mask and supplies See Rx Instructions .Route .MEDSUPPLY Qty: 1 0RF Rx Instructions: As directed (DME) compression socks, large Misc See Rx Instructions .Route Qty: 2 0RF Rx Instructions: As directed daily Januvia 25 mg tablet 25 mg PO QAM Qty: 90 3RF (DME) pen needle, diabetic [1st Tier Unifine Pentips] 31 gauge x 3/16" needle See Rx Instructions .Route Qty: 200 3RF Rx Instructions: Use to administer insulin twice daily trazodone 50 mg tablet 50 mg PO QHS PRN (Reason: insomnia) Qty: 90 1RF spironolactone 25 mg tablet 25 mg PO QDAY Qty: 90 1RF (DME) insulin syringe-needle U-100 [BD Insulin Syringe] 1 mL 27 gauge x 1/2" syringe See Rx Instructions .Route Qty: 500 3RF Rx Instructions: Use to administer insulin twice daily albuterol sulfate [Ventolin HFA] 90 mcg/actuation HFA aerosol inhaler 1 - 2 puff inhalation Q6H PRN (Reason: shortness of breath or wheezing) Qty: 8.5 3RF amlodipine 10 mg tablet 10 mg PO QDAY Qty: 90 0RF escitalopram oxalate 10 mg tablet 10 mg PO QDAY Qty: 30 1RF famotidine 20 mg tablet 20 mg PO BID Qty: 180 0RF buspirone 5 mg tablet 5 mg PO BID Qty: 180 0RF prednisone 20 mg tablet 40 mg PO QDAY Qty: 180 0RF tramadol 50 mg tablet 100 mg PO QID PRN (Reason: pain) 30 Days Qty: 240 0RF Rx Instructions: MAY NOT FILL UNTIL 01/21/23 dicyclomine 20 mg tablet 20 mg PO QID PRN (Reason: stomach cramping) Qty: 120 5RF insulin aspart U-100 100 unit/mL (3 mL) insulin pen 10 unit subcut TID Rx Instructions: plus sliding scale adjustment due to steroid use MAXIUMUM DOSE 42U DAILY insulin glargine 100 unit/mL (3 mL) insulin pen 15 unit subcut QDAY (DME) OneTouch Ultra Test Strip See Rx Instructions .Route Qty: 200 3RF Rx Instructions: Use to test blood sugar three times daily (DME) incontinence pad, liner, disp Pad See Rx Instructions .Route Qty: 120 0RF Rx Instructions: As directed daily lisinopril 40 mg tablet 40 mg PO BID simethicone [Gas Relief Extra Strength] 125 mg tablet,chewable 250 mg PO BIDP PRN (Reason: abdominal pain) dorzolamide-timolol 22.3-6.8 mg/mL drops 1 drp OPHTHALMIC (EYE) BID Eliquis 5 mg tablet 5 mg PO BID insulin aspart U-100 [Novolog FlexPen U-100 Insulin] 100 unit/mL (3 mL) insulin pen 6 unit subcut TID Follow Up Plan Follow up with: Thierno Leonard DO [Primary Care Provider] - Patient Disposition: [facility] Plan of Treatment: Increase cefepime to 2 g IV every 8 hours. Obtain lumbar puncture. Sent for cell count, protein, glucose. Gram stain, [employer] Prognosis: Serious Overall status at discharge: other Discharge Orders: Discharge Order (Routine); Ordered 01/28/23 Ordered By: Shimon ALEXANDRA VTE Deep Vein Thrombosis/Pulmonary Embolism Present on Admission: No
[2023-01-28] MEDS ORDERED: CEFEPIME 2 GM VIAL IV SCH (22:00)
[2023-01-31 07:36] LABS: Opiate Confirmation Positive
== END 2023-01-28 18:15 | disposition short-term general hospital (02) | DRG 871 ==
LOC: ED 23:22 → ICU 01-24 21:12 → MEDSUR 01-26 15:45
PROVIDERS: ADMIT Internal Medicine; ATTEND Internal Medicine